=== PATIENT | male | born 1955 | race Caucasian/White ===

== ENCOUNTER 2021-04-14 10:09 | Outpatient (CLI) | payer MEDICARE, OTHER, SELFPAY ==
[2021-04-14 19:14] LABS: Hemoglobin A1C 7.1 % (<5.7)
[2021-04-14 20:26] LABS: Anion Gap 10 mmol/L (8-16); Blood Urea Nitrogen 17 mg/dL (9-20); Calcium 9.5 mg/dL (8.4-10.2); Carbon Dioxide 24 mmol/L (22-30); Chloride 105 mmol/L (98-107); Estimated Glomerular Filt Rate > 60; Glucose 184 mg/dL (65-110); Potassium 4.7 mmol/L (3.4-5.0); Sodium 139 mmol/L (137-145)
[2021-04-14 21:00] LABS: Thyroid Stimulating Hormone 0.333 uIU/mL (0.465-4.680)
== END 2021-04-14 10:10 | disposition home or self-care (01) ==
PROVIDERS: PCP Family Medicine
DX: N40.1 Benign prostatic hyperplasia with lower urinary tract symptoms (principal); E03.9 Hypothyroidism, unspecified; E11.9 Type 2 diabetes mellitus without complications
CPT/HCPCS: 36415; 80048; 83036; 84443

== ENCOUNTER 2021-06-01 11:51 | Outpatient (CLI) | payer MEDICARE, OTHER, SELFPAY | END 2021-06-01 11:52 | disposition home or self-care (01) | PROVIDERS: PCP Family Medicine; Visit Provider Family Medicine | DX: Z79.899 Other long term (current) drug therapy (principal) | CPT/HCPCS: 36415; 84443 ==

== ENCOUNTER 2021-06-14 14:03 | Outpatient (CLI) | payer MEDICARE, OTHER, SELFPAY ==
[2021-06-14 20:16] LABS: Hematocrit 40.2 % (42.0-52.0); Hemoglobin 13.4 g/dL (14.0-18.0); Mean Corpuscular HGB Conc 33.3 g/dl (32-36); Mean Corpuscular Hemoglobin 31.5 pg (26-34); Mean Corpuscular Volume 94.4 fl (80-100); Mean Platelet Volume 11.9 fl (7.4-10.4); Platelet Count Result 187 k/mm3 (150-375); Red Blood Count 4.26 M/mm3 (4.6-6.20); Red Cell Distribution Width 12.8 % (11.5-14.5); White Blood Count 6.5 K/mm3 (4.5-10.0)
[2021-06-14 20:57] LABS: Thyroid Stimulating Hormone Reflex 0.843 uIU/mL (0.465-4.68)
[2021-06-14 21:19] LABS: Vitamin B12 > 1000.0 pg/mL (239-931)
[2021-06-18 13:04] LABS: Vitamin B6 11.4 ng/mL (2.1-21.7)
== END 2021-06-14 14:04 | disposition home or self-care (01) ==
LOC: ANHBWCLAB 14:05
PROVIDERS: PCP Family Medicine; Visit Provider Family Medicine
DX: N20.0 Calculus of kidney (principal); Z79.899 Other long term (current) drug therapy; K14.6 Glossodynia
CPT/HCPCS: 36415; 82607; 84207; 84443; 85027

== ENCOUNTER 2021-09-07 13:09 | Outpatient (CLI) | payer MEDICARE, OTHER, SELFPAY | END 2021-09-07 13:10 | disposition home or self-care (01) | PROVIDERS: PCP Family Medicine; Visit Provider Family Medicine | DX: E07.89 Other specified disorders of thyroid (principal); Z51.81 Encounter for therapeutic drug level monitoring; Z79.899 Other long term (current) drug therapy | CPT/HCPCS: 36415; 84443 ==

== ENCOUNTER 2021-10-13 10:26 | Outpatient (CLI) | payer MEDICARE, OTHER, SELFPAY ==
[2021-10-13 18:35] LABS: Hematocrit 42.9 % (42.0-52.0); Hemoglobin 14.4 g/dL (14.0-18.0); Mean Corpuscular HGB Conc 33.6 g/dl (32-36); Mean Corpuscular Hemoglobin 31.5 pg (26-34); Mean Corpuscular Volume 93.9 fl (80-100); Mean Platelet Volume 11.5 fl (7.4-10.4); Platelet Count Result 214 k/mm3 (150-375); Red Blood Count 4.57 M/mm3 (4.6-6.20); Red Cell Distribution Width 12.8 % (11.5-14.5); White Blood Count 7.9 K/mm3 (4.5-10.0)
[2021-10-13 18:45] LABS: Alanine Aminotransferase 63 U/L (4-50); Albumin Level 4.7 g/dL (3.5-5.1); Alkaline Phosphatase 69 U/L (38-126); Anion Gap 9 mmol/L (8-16); Aspartate Amino Transferase 49 U/L (17-59); Bilirubin,Total 0.7 mg/dL (0.2-1.3); Blood Urea Nitrogen 15 mg/dL (9-20); Calcium 9.6 mg/dL (8.4-10.2); Carbon Dioxide 28 mmol/L (22-30); Chloride 102 mmol/L (98-107); Cholesterol 169 mg/dL (0-200); Estimated Glomerular Filt Rate > 60; Glucose 151 mg/dL (65-110); HDL Direct 34 mg/dL; Potassium 4.5 mmol/L (3.4-5.0); Sodium 139 mmol/L (137-145); Triglycerides 200 mg/dL (<150)
[2021-10-13 18:56] LABS: LDL Cholesterol Direct 110 mg/dL
[2021-10-13 18:59] LABS: Hemoglobin A1C 7.6 % (<5.7)
[2021-10-13 19:31] LABS: Microalbumin Urine Random 42.7 mg/L (0-16.7)
[2021-10-13 19:51] LABS: Creatinine Urine 345.1 mg/dL; MALB Creatinine Ratio 12.4 mg/g (0-30)
== END 2021-10-13 10:27 | disposition home or self-care (01) ==
PROVIDERS: PCP Family Medicine; Visit Provider Family Medicine
DX: E11.9 Type 2 diabetes mellitus without complications (principal)
CPT/HCPCS: 36415; 80053; 80061; 82043; 83036; 84443; 85027

== ENCOUNTER 2021-11-10 10:22 | Outpatient (CLI) | payer MEDICARE, OTHER, SELFPAY ==
[2021-11-10 18:53] LABS: Alanine Aminotransferase 39 U/L (4-50); Albumin Level 4.7 g/dL (3.5-5.1); Alkaline Phosphatase 87 U/L (38-126); Aspartate Amino Transferase 33 U/L (17-59); Bilirubin,Total 0.5 mg/dL (0.2-1.3)
[2021-11-10 19:39] LABS: Hepatitis B Surface Antigen Negative (Negative)
[2021-11-10 19:45] LABS: HAV RESULT Negative (Negative); Hepatitis B Core IgM Result Negative (Negative)
[2021-11-10 19:57] LABS: Hepatitis C Virus Antibody Negative (Negative)
== END 2021-11-10 10:23 | disposition home or self-care (01) ==
PROVIDERS: PCP Family Medicine; Visit Provider Family Medicine
DX: R74.01 Elevation of levels of liver transaminase levels (principal); R74.8 Abnormal levels of other serum enzymes
CPT/HCPCS: 36415; 80074; 80076

== ENCOUNTER 2022-02-13 10:41 | Outpatient (CLI) | payer MEDICARE, OTHER, SELFPAY ==
[2022-02-13 19:10] LABS: Hemoglobin A1C 7.4 % (<5.7)
== END 2022-02-13 10:42 | disposition home or self-care (01) ==
PROVIDERS: PCP Family Medicine; Visit Provider Family Medicine
DX: E79.0 Hyperuricemia without signs of inflammatory arthritis and tophaceous disease (principal)
CPT/HCPCS: 36415; 83036

== ENCOUNTER 2022-06-06 09:17 | Outpatient (CLI) | payer MEDICARE, OTHER, SELFPAY ==
--- NOTE | ~2022-06-06 | XR_ITS ---
EXAMINATION: XR shoulder LT min 2V DATE: 06/06/2022 09:34 INDICATION: Left shoulder pain TECHNIQUE: AP internally and externally rotated, AP oblique externally rotated and transscapular Y vi ews of the left shoulder were obtained. COMPARISON: None FINDINGS: Normal alignment. No fracture.Severe left glenohumeral osteoarthritis with essentially [id number] apposition and early remodeling of the articular surfaces of the glenoid and humeral head. Large asuncion inal osteophytes along the inferomedial aspect of the humeral head. Acromioclavicular joint is normal . Soft tissues are unremarkable. Visualized portion of the lungs are clear. IMPRESSION: Severe left glenohumeral osteoarthritis. Reviewed, dictated and finalized at location A.
[2022-06-06 19:52] LABS: Basophils Absolute Auto 0.1 K/mm3 (0.0-0.1); Basophils Percent Auto 0.8 % (0.2-1.2); Eosinophils Absolute Auto 0.4 K/mm3 (0-0.3); Eosinophils Percent Auto 4.4 % (0-4.4); Hemoglobin 14.2 g/dL (14.0-18.0); Immature Granulocyte Absolute 0.04 K/mm3 (0.00-0.031); Immature Granulocyte Percent A 0.5 % (0-0.5); Lymphocytes Absolute Auto 2.46 K/mm3 (0.9-3.2); Lymphocytes Percent Auto 29.5 % (18.3-44.2); Mean Corpuscular HGB Conc 32.3 g/dl (32-36); Mean Corpuscular Hemoglobin 31.1 pg (26-34); Mean Corpuscular Volume 96.3 fl (80-100); Mean Platelet Volume 11.4 fl (7.4-10.4); Monocytes Absolute Auto 0.7 K/mm3 (0.1-0.6); Neutrophils Absolute Auto 4.7 K/mm3 (1.3-6.7); Neutrophils Percent Auto 56.8 % (45.5-73.1); Platelet Count Result 211 k/mm3 (150-375); Red Blood Count 4.57 M/mm3 (4.6-6.20); Red Cell Distribution Width 13.4 % (11.5-14.5); White Blood Count 8.3 K/mm3 (4.5-10.0)
[2022-06-06 20:22] LABS: Alanine Aminotransferase 64 U/L (6-50); Albumin Level 4.7 g/dL (3.5-5.1); Alkaline Phosphatase 81 U/L (38-126); Anion Gap 14 mmol/L (8-16); Aspartate Amino Transferase 69 U/L (17-59); Bilirubin,Total 0.6 mg/dL (0.2-1.3); Blood Urea Nitrogen 20 mg/dL (9-20); Calcium 9.7 mg/dL (8.4-10.2); Carbon Dioxide 26 mmol/L (22-30); Chloride 99 mmol/L (98-107); Cholesterol 184 mg/dL (0-200); Estimated Glomerular Filt Rate > 60; Glucose 206 mg/dL (65-110); HDL Direct 32 mg/dL; Potassium 4.5 mmol/L (3.4-5.0); Sodium 139 mmol/L (137-145); Triglycerides 287 mg/dL (<150)
[2022-06-06 20:41] LABS: LDL Cholesterol Direct 102 mg/dL
[2022-06-06 21:16] LABS: Creatinine Urine 166.9 mg/dL
[2022-06-06 21:19] LABS: MALB Creatinine Ratio 17.6 mg/g (0-30); Microalbumin Urine Random 29.4 mg/L (0-16.7)
== END 2022-06-06 09:18 | disposition home or self-care (01) ==
PROVIDERS: PCP Family Medicine; Visit Provider Family Medicine
DX: M19.012 Primary osteoarthritis, left shoulder (principal); Z79.899 Other long term (current) drug therapy; E11.9 Type 2 diabetes mellitus without complications; N20.0 Calculus of kidney
CPT/HCPCS: 36415; 73030; 80053; 80061; 82043; 83036; 84443; 85025

== ENCOUNTER 2022-09-06 11:16 | Outpatient (CLI) | payer MEDICARE, OTHER, SELFPAY ==
[2022-09-07 12:02] LABS: Hemoglobin A1C 7.5 % (<5.7)
== END 2022-09-06 11:17 | disposition home or self-care (01) ==
PROVIDERS: PCP Family Medicine; Visit Provider Family Medicine
DX: E79.0 Hyperuricemia without signs of inflammatory arthritis and tophaceous disease (principal); Z79.899 Other long term (current) drug therapy
CPT/HCPCS: 36415; 83036; 84443

== ENCOUNTER 2022-12-18 10:55 | Outpatient (CLI) | payer MEDICARE, OTHER, SELFPAY ==
[2022-12-18 17:54] LABS: Basophils Percent Auto 0.6 % (0.2-1.2); Eosinophils Absolute Auto 0.3 K/mm3 (0-0.3); Eosinophils Percent Auto 4.1 % (0-4.4); Hemoglobin 13.1 g/dL (14.0-18.0); Immature Granulocyte Absolute 0.01 K/mm3 (0.00-0.031); Immature Granulocyte Percent A 0.1 % (0-0.5); Lymphocytes Absolute Auto 2.27 K/mm3 (0.9-3.2); Lymphocytes Percent Auto 31.8 % (18.3-44.2); Mean Corpuscular Hemoglobin 30.3 pg (26-34); Mean Corpuscular Volume 94.7 fl (80-100); Mean Platelet Volume 11.5 fl (7.4-10.4); Monocytes Absolute Auto 0.5 K/mm3 (0.1-0.6); Monocytes Percent Auto 7.4 % (2.6-8.5); Platelet Count Result 199 k/mm3 (150-375); Red Blood Count 4.33 M/mm3 (4.6-6.20); Red Cell Distribution Width 13.9 % (11.5-14.5); White Blood Count 7.1 K/mm3 (4.5-10.0)
[2022-12-18 18:37] LABS: Microalbumin Urine Random 10.2 mg/L (0-16.7)
[2022-12-18 18:39] LABS: Alanine Aminotransferase 93 U/L (6-50); Albumin Level 4.7 g/dL (3.5-5.1); Alkaline Phosphatase 79 U/L (38-126); Anion Gap 8 mmol/L (8-16); Aspartate Amino Transferase 84 U/L (17-59); Bilirubin,Total 0.8 mg/dL (0.2-1.3); Blood Urea Nitrogen 17 mg/dL (9-20); Calcium 9.3 mg/dL (8.4-10.2); Carbon Dioxide 31 mmol/L (22-30); Chloride 100 mmol/L (98-107); Estimated Glomerular Filt Rate > 60; Glucose 163 mg/dL (65-110); Potassium 4.7 mmol/L (3.4-5.0); Sodium 139 mmol/L (137-145)
[2022-12-18 18:47] LABS: Creatinine Urine 165.1 mg/dL; MALB Creatinine Ratio 6.2 mg/g (0-30)
== END 2022-12-18 10:56 | disposition home or self-care (01) ==
PROVIDERS: PCP Family Medicine; Visit Provider Family Medicine
DX: E11.9 Type 2 diabetes mellitus without complications (principal); K58.9 Irritable bowel syndrome, unspecified
CPT/HCPCS: 36415; 80053; 82043; 83036; 84443; 85025; 86003

== ENCOUNTER 2023-06-11 10:06 | Outpatient (CLI) | payer MEDICARE, OTHER, SELFPAY ==
[2023-06-11 19:21] LABS: Basophils Percent Auto 0.6 % (0.2-1.2); Eosinophils Absolute Auto 0.2 K/mm3 (0-0.3); Eosinophils Percent Auto 2.9 % (0-4.4); Hematocrit 42.3 % (42.0-52.0); Hemoglobin 13.4 g/dL (14.0-18.0); Immature Granulocyte Absolute 0.03 K/mm3 (0.00-0.031); Immature Granulocyte Percent A 0.5 % (0-0.5); Lymphocytes Absolute Auto 2.02 K/mm3 (0.9-3.2); Lymphocytes Percent Auto 32.5 % (18.3-44.2); Mean Corpuscular HGB Conc 31.7 g/dl (32-36); Mean Corpuscular Hemoglobin 30.5 pg (26-34); Mean Corpuscular Volume 96.1 fl (80-100); Mean Platelet Volume 11.9 fl (7.4-10.4); Monocytes Absolute Auto 0.5 K/mm3 (0.1-0.6); Monocytes Percent Auto 8.4 % (2.6-8.5); Neutrophils Absolute Auto 3.4 K/mm3 (1.3-6.7); Neutrophils Percent Auto 55.1 % (45.5-73.1); Platelet Count Result 192 k/mm3 (150-375); Red Cell Distribution Width 13.4 % (11.5-14.5); White Blood Count 6.2 K/mm3 (4.5-10.0)
[2023-06-11 19:24] LABS: Alanine Aminotransferase 100 U/L (6-50); Albumin Level 4.7 g/dL (3.5-5.1); Alkaline Phosphatase 91 U/L (38-126); Anion Gap 9 mmol/L (8-16); Aspartate Amino Transferase 90 U/L (17-59); Bilirubin,Total 0.7 mg/dL (0.2-1.3); Blood Urea Nitrogen 20 mg/dL (9-20); Calcium 9.8 mg/dL (8.4-10.2); Carbon Dioxide 29 mmol/L (22-30); Chloride 96 mmol/L (98-107); Cholesterol 200 mg/dL (0-200); Estimated Glomerular Filt Rate > 60; Glucose 345 mg/dL (65-110); HDL Direct 35 mg/dL; Sodium 134 mmol/L (137-145); Triglycerides 264 mg/dL (<150)
[2023-06-11 19:35] LABS: LDL Cholesterol Direct 118 mg/dL
[2023-06-11 19:54] LABS: Prostate Specific Antigen 0.4 ng/mL (< OR = 4.0)
[2023-06-11 20:17] LABS: Creatinine Urine 102.7 mg/dL
[2023-06-11 20:18] LABS: MALB Creatinine Ratio 10.5 mg/g (0-30); Microalbumin Urine Random 10.8 mg/L (0-16.7)
[2023-06-11 23:46] LABS: Hemoglobin A1C 8.4 % (<5.7)
== END 2023-06-11 10:07 | disposition home or self-care (01) ==
PROVIDERS: PCP Family Medicine; Visit Provider Family Medicine
DX: E11.9 Type 2 diabetes mellitus without complications (principal); Z12.5 Encounter for screening for malignant neoplasm of prostate
CPT/HCPCS: 36415; 80053; 80061; 82043; 83036; 84153; 84443; 85025; G0103

== ENCOUNTER 2023-10-22 11:29 | Outpatient (CLI) | payer MEDICARE, OTHER, SELFPAY ==
[2023-10-22 19:18] LABS: Hematocrit 42.3 % (42.0-52.0); Mean Corpuscular HGB Conc 30.7 g/dl (32-36); Mean Corpuscular Hemoglobin 30.2 pg (26-34); Mean Corpuscular Volume 98.1 fl (80-100); Mean Platelet Volume 12.1 fl (7.4-10.4); Platelet Count Result 176 k/mm3 (150-375); Red Blood Count 4.31 M/mm3 (4.6-6.20); Red Cell Distribution Width 14.1 % (11.5-14.5); White Blood Count 7.5 K/mm3 (4.5-10.0)
[2023-10-22 20:27] LABS: Alanine Aminotransferase 79 U/L (6-50); Albumin Level 4.5 g/dL (3.5-5.1); Alkaline Phosphatase 112 U/L (38-126); Anion Gap 8 mmol/L (8-16); Aspartate Amino Transferase 69 U/L (17-59); Bilirubin,Total 0.4 mg/dL (0.2-1.3); Blood Urea Nitrogen 15 mg/dL (9-20); Calcium 9.9 mg/dL (8.4-10.2); Carbon Dioxide 25 mmol/L (22-30); Chloride 103 mmol/L (98-107); Estimated Glomerular Filt Rate > 60; Glucose 299 mg/dL (65-110); Potassium 4.5 mmol/L (3.4-5.0); Sodium 136 mmol/L (137-145)
[2023-10-22 20:38] LABS: Creatinine Urine 58.2 mg/dL
[2023-10-22 20:46] LABS: MALB Creatinine Ratio 14.6 mg/g (0-30); Microalbumin Urine Random 8.5 mg/L (0-16.7)
[2023-10-22 21:34] LABS: Hemoglobin A1C 9.1 % (<5.7)
== END 2023-10-22 11:30 | disposition home or self-care (01) ==
LOC: ANHBWCLAB 11:31
PROVIDERS: PCP Family Medicine; Visit Provider Family Medicine
DX: E11.9 Type 2 diabetes mellitus without complications (principal)
CPT/HCPCS: 36415; 80053; 82043; 83036; 84443; 85027

== ENCOUNTER 2024-02-04 10:09 | Outpatient (CLI) | payer MEDICARE, OTHER, SELFPAY ==
[2024-02-04 19:34] LABS: Microalbumin Urine Random 32.8 mg/L (0-16.7)
[2024-02-04 19:38] LABS: Creatinine Urine 197.7 mg/dL; MALB Creatinine Ratio 16.6 mg/g (0-30)
[2024-02-05 01:27] LABS: Hemoglobin A1C 8.7 % (<5.7)
== END 2024-02-04 10:10 | disposition home or self-care (01) ==
PROVIDERS: PCP Family Medicine; Visit Provider Family Medicine
DX: E11.9 Type 2 diabetes mellitus without complications (principal)
CPT/HCPCS: 36415; 82043; 83036

== ENCOUNTER 2024-06-25 10:28 | Outpatient (CLI) | payer MEDICARE, OTHER, SELFPAY ==
--- NOTE | ~2024-06-25 | XR_ITS ---
Left Shoulder Technique: AP and scapular Y views were obtained. Clinical History: Pain Findings: No fracture or dislocation is seen. Osseous alignment is anatomic. There is advanced glenoh umeral joint osteophytes, with joint space narrowing and large inferior medial humeral head osteophyt e. There is minimal AC joint degenerative change.. Soft tissues are unremarkable. Impression: Severe glenohumeral joint osteoarthritis. Reviewed, dictated and finalized at location M. [employer] Impression: Severe glenohumeral joint osteoarthritis.
[2024-06-25 20:53] LABS: Hematocrit 42.9 % (42.0-52.0); Hemoglobin 13.6 g/dL (14.0-18.0); Mean Corpuscular HGB Conc 31.7 g/dl (32-36); Mean Corpuscular Hemoglobin 30.1 pg (26-34); Mean Corpuscular Volume 94.9 fl (80-100); Mean Platelet Volume 11.7 fl (7.4-10.4); Platelet Count Result 173 k/mm3 (150-375); Red Blood Count 4.52 M/mm3 (4.6-6.20); Red Cell Distribution Width 13.2 % (11.5-14.5); White Blood Count 7.4 K/mm3 (4.5-10.0)
[2024-06-25 21:08] LABS: Alanine Aminotransferase 97 U/L (6-50); Albumin Level 4.6 g/dL (3.5-5.1); Alkaline Phosphatase 75 U/L (38-126); Anion Gap 12 mmol/L (4-12); Aspartate Amino Transferase 88 U/L (17-59); Bilirubin,Total 0.8 mg/dL (0.2-1.3); Blood Urea Nitrogen 19 mg/dL (9-20); Calcium 9.4 mg/dL (8.4-10.2); Carbon Dioxide 28 mmol/L (22-30); Chloride 99 mmol/L (98-107); Cholesterol 189 mg/dL (0-200); Estimated Glomerular Filt Rate > 60; Glucose 222 mg/dL (65-110); HDL Direct 35 mg/dL; Potassium 4.6 mmol/L (3.4-5.0); Sodium 139 mmol/L (137-145); Triglycerides 260 mg/dL (<150)
[2024-06-25 21:21] LABS: LDL Cholesterol Direct 100 mg/dL
[2024-06-25 21:38] LABS: Prostate Specific Antigen 0.5 ng/mL (< OR = 4.0)
[2024-06-25 21:49] LABS: Microalbumin Urine Random 34.6 mg/L (0-16.7)
[2024-06-25 21:52] LABS: Creatinine Urine 166.4 mg/dL; MALB Creatinine Ratio 20.8 mg/g (0-30)
[2024-06-25 21:56] LABS: Hemoglobin A1C 10.7 % (<5.7)
== END 2024-06-25 10:29 | disposition home or self-care (01) ==
PROVIDERS: PCP Family Medicine; Visit Provider Family Medicine
DX: M19.012 Primary osteoarthritis, left shoulder (principal); H90.3 Sensorineural hearing loss, bilateral; Z79.899 Other long term (current) drug therapy; N20.0 Calculus of kidney; E11.9 Type 2 diabetes mellitus without complications; E03.9 Hypothyroidism, unspecified; E78.5 Hyperlipidemia, unspecified; F41.9 Anxiety disorder, unspecified; G47.00 Insomnia, unspecified; I63.9 Cerebral infarction, unspecified; R74.8 Abnormal levels of other serum enzymes; Z12.5 Encounter for screening for malignant neoplasm of prostate
CPT/HCPCS: 36415; 73030; 80053; 80061; 82043; 83036; 84153; 84443; 85027; 92557; 92567; G0103

== ENCOUNTER 2024-09-30 01:03 | Day surgery (SDC) | payer MEDICARE, OTHER, SELFPAY ==
[2024-09-15 14:43] VITALS: BMI 32.4
--- OUTSIDE RECORDS SUMMARY | 2024-09-30 01:06 | XMS_ITS | Patient Health Summary ---
Author Organization [facility] Address [address] [place] [address] Care Team Providers Care Child Care Sitter Name Role Phone Jacoby Yanna Wayne HUMAN RESOURCES FILE CLERK-[facility] Primary Care Provider Note from [facility],non-owned Affiliates and Associated Physician Practices is amultiple site organization consisting of ambulatory clinics and hospital sitesin [place], [place], [place] and [place]. This disclosure is being madepursuant to the Care Everywhere program and may not contain all information available regarding this patient. Last updated 18.[facility] Allergies * [place] Blue Fcf, Fd&C Blue #1(Itching) -Low Criticality * Codeine(Nausea) -Low Criticality * Niacin(Anaphylaxis) -High Criticality Active Problems Problem Noted Date Diagnosed Date Abdominal pain 03/28/2013 Shortness of breath 03/14/2013 Social History Tobacco Use Types Packs/Day Years Used Date Smoking Tobacco: Former Cigarettes Q uit: 01/28/1973 Smokeless Tobacco: Never Alcohol Use Standard Drinks/Week Comments Yes 0 (1 standard drink = 0.6 oz pur e alcohol) Sex and Gender Information Value Date Recorded Sex Assigned at Not on file Gender Identity Not on file Sexual Orientation Not on file Last Filed Vital Signs Vital Sign Reading Time Taken Comments Blood Pressure 126/68 04/16/2013 11:16 AM CDT Pulse 84 04/16/2013 11:16 AM CDT Temperature 37.1 C (98.7 F) 04/08/2013 1:42 PM CDT Respiratory Rate 20 03/28/2013 9:01 AM CDT Oxygen Saturation 92% 03/28/2013 8:59 AM CDT Inhaled Oxygen Concentration - - Weight 86.3 kg (190 lb 3.2 oz) 04/16/2013 11:16 AM CDT Height 165.1 cm (5' 5 ) 04/16/2013 11:16 AM CDT Body Mass Index 31.65 04/16/2013 11:16 AM CDT Procedures * CT CHEST ABDOMEN PELVIS WO CONT(Performed 04/16/2013) * XR CHEST 2VW(Performed 04/08/2013) * XR CHEST 1VW PORTABLE(Performed 03/28/2013) * GLUCOSE ACCUCHECK(Performed 03/28/2013) * XR CHEST 1VW PORTABLE(Performed 03/28/2013) * GLUCOSE ACCUCHECK(Performed 03/28/2013) * CBC W AUTO DIFFERENTIAL(Performed 03/28/2013) * BASIC METABOLIC PANEL (CALCIUM TOTAL)(Performed 03/28/2013) * GLUCOSE ACCUCHECK(Performed 03/27/2013) * EKG 12-LEAD(Performed 03/27/2013) * GLUCOSE ACCUCHECK(Performed 03/27/2013) * XR ABDOMEN KUB PORTABLE(Performed 03/27/2013) * GLUCOSE ACCUCHECK(Performed 03/27/2013) * GLUCOSE ACCUCHECK(Performed 03/27/2013) * CBC W AUTO DIFFERENTIAL(Performed 03/27/2013) * BASIC METABOLIC PANEL (CALCIUM TOTAL)(Performed 03/27/2013) * XR CHEST 1VW PORTABLE(Performed 03/27/2013) * VANCOMYCIN LEVEL TROUGH(Performed 03/26/2013) * GLUCOSE ACCUCHECK(Performed 03/26/2013) * XR CHEST 1VW PORTABLE(Performed 03/26/2013) * FL HUANG SURGERY(Performed 03/26/2013) * URINALYSIS W/MICROSCOPIC NO CULTURE(Performed 03/26/2013) * CULTURE URINE(Performed 03/26/2013) * GLUCOSE ACCUCHECK(Performed 03/26/2013) * CBC W AUTO DIFFERENTIAL(Performed 03/26/2013) * PHOSPHORUS BLOOD(Performed 03/26/2013) * MAGNESIUM BLOOD(Performed 03/26/2013) * BASIC METABOLIC PANEL (CALCIUM TOTAL)(Performed 03/26/2013) * GLUCOSE ACCUCHECK(Performed 03/26/2013) * XR CHEST 1VW PORTABLE(Performed 03/26/2013) * GLUCOSE ACCUCHECK(Performed 03/25/2013) * GLUCOSE ACCUCHECK(Performed 03/25/2013) * CT CHEST WO CONTRAST(Performed 03/25/2013) * GLUCOSE ACCUCHECK(Performed 03/25/2013) * VANCOMYCIN LEVEL TROUGH(Performed 03/25/2013) * GLUCOSE ACCUCHECK(Performed 03/25/2013) * CBC W AUTO DIFFERENTIAL(Performed 03/25/2013) * BASIC METABOLIC PANEL (CALCIUM TOTAL)(Performed 03/25/2013) * XR CHEST 1VW PORTABLE(Performed 03/25/2013) * GLUCOSE ACCUCHECK(Performed 03/24/2013) * GLUCOSE ACCUCHECK(Performed 03/24/2013) * GLUCOSE ACCUCHECK(Performed 03/24/2013) * GLUCOSE ACCUCHECK(Performed 03/24/2013) * VANCOMYCIN LEVEL TROUGH(Performed 03/24/2013) * CBC W AUTO DIFFERENTIAL(Performed 03/24/2013) * BASIC METABOLIC PANEL (CALCIUM TOTAL)(Performed 03/24/2013) * XR CHEST 1VW PORTABLE(Performed 03/24/2013) * GLUCOSE ACCUCHECK(Performed 03/23/2013) * GLUCOSE ACCUCHECK(Performed 03/23/2013) * GLUCOSE ACCUCHECK(Performed 03/23/2013) * GLUCOSE ACCUCHECK(Performed 03/23/2013) * XR CHEST 1VW PORTABLE(Performed 03/23/2013) * CBC W AUTO DIFFERENTIAL(Performed 03/23/2013) * BASIC METABOLIC PANEL (CALCIUM TOTAL)(Performed 03/23/2013) * GLUCOSE ACCUCHECK(Performed 03/22/2013) * GLUCOSE ACCUCHECK(Performed 03/22/2013) * GLUCOSE ACCUCHECK(Performed 03/22/2013) * VANCOMYCIN LEVEL TROUGH(Performed 03/22/2013) * GLUCOSE ACCUCHECK(Performed 03/22/2013) * GLUCOSE ACCUCHECK(Performed 03/22/2013) * GLUCOSE ACCUCHECK(Performed 03/22/2013) * GLUCOSE ACCUCHECK(Performed 03/22/2013) * GLUCOSE ACCUCHECK(Performed 03/22/2013) * GLUCOSE ACCUCHECK(Performed 03/22/2013) * GLUCOSE ACCUCHECK(Performed 03/22/2013) * GLUCOSE ACCUCHECK(Performed 03/22/2013) * XR CHEST 1VW PORTABLE(Performed 03/22/2013) * GLUCOSE ACCUCHECK(Performed 03/22/2013) * BASIC METABOLIC PANEL (CALCIUM TOTAL)(Performed 03/22/2013) * CBC W AUTO DIFFERENTIAL(Performed 03/22/2013) * GLUCOSE ACCUCHECK(Performed 03/21/2013) * GLUCOSE ACCUCHECK(Performed 03/21/2013) * GLUCOSE ACCUCHECK(Performed 03/21/2013) * XR CHEST 1VW PORTABLE(Performed 03/21/2013) * GLUCOSE ACCUCHECK(Performed 03/21/2013) * XR CHEST 1VW PORTABLE(Performed 03/21/2013) * GLUCOSE ACCUCHECK(Performed 03/21/2013) * CBC W AUTO DIFFERENTIAL(Performed 03/21/2013) * BASIC METABOLIC PANEL (CALCIUM TOTAL)(Performed 03/21/2013) * GLUCOSE ACCUCHECK(Performed 03/20/2013) * GLUCOSE ACCUCHECK(Performed 03/20/2013) * GLUCOSE ACCUCHECK(Performed 03/20/2013) * CT CHEST ABDOMEN WO CONTRAST(Performed 03/20/2013) * XR CHEST 1VW PORTABLE(Performed 03/20/2013) * PATHOLOGY SMEAR BODY FLUID(Performed 03/20/2013) * CELL COUNT W DIFFERENTIAL FLUID(Performed 03/20/2013) * GLUCOSE BODY FLUID(Performed 03/20/2013) * AMYLASE FLUID(Performed 03/20/2013) * CHOLESTEROL FLUID(Performed 03/20/2013) * PROTEIN FLUID(Performed 03/20/2013) * LDH BODY FLUID(Performed 03/20/2013) * PH FLUID(Performed 03/20/2013) * CREATININE FLUID(Performed 03/20/2013) * CULTURE AFB(Performed 03/20/2013) * CULTURE AEROBIC(Performed 03/20/2013) * AFB SMEAR(Performed 03/20/2013) * GRAM STAIN SMEAR(Performed 03/20/2013) * BASIC METABOLIC PANEL (CALCIUM TOTAL)(Performed 03/20/2013) * PHOSPHORUS BLOOD(Performed 03/20/2013) * MAGNESIUM BLOOD(Performed 03/20/2013) * PT-INR [facility](Performed 03/20/2013) * CBC W/O DIFFERENTIAL(Performed 03/20/2013) * PHOSPHORUS BLOOD(Performed 03/19/2013) * MAGNESIUM BLOOD(Performed 03/19/2013) * BASIC METABOLIC PANEL (CALCIUM TOTAL)(Performed 03/19/2013) * CBC W AUTO DIFFERENTIAL(Performed 03/19/2013) * XR CHEST 1VW PORTABLE(Performed 03/19/2013) * GLUCOSE ACCUCHECK(Performed 03/14/2013) * NM LUNG VENT AND PERFUSION(Performed 03/14/2013) * PTT [facility](Performed 03/14/2013) * CK + CKMB PANEL(Performed 03/14/2013) * TROPONIN I(Performed 03/14/2013) * GLUCOSE ACCUCHECK(Performed 03/14/2013) * VAS BILATERAL VENOUS DUPLEX LE(Performed 03/14/2013) * PTT [facility](Performed 03/14/2013) * GLUCOSE ACCUCHECK(Performed 03/14/2013) * CBC W AUTO DIFFERENTIAL(Performed 03/14/2013) * CK + CKMB PANEL(Performed 03/14/2013) * BASIC METABOLIC PANEL (CALCIUM TOTAL)(Performed 03/14/2013) * PHOSPHORUS BLOOD(Performed 03/14/2013) * MAGNESIUM BLOOD(Performed 03/14/2013) * TROPONIN I(Performed 03/14/2013) * URINALYSIS REFLEX TO MICROSCOPIC NO CULTURE(Performed 03/14/2013) * URINALYSIS REFLEX TO MICROSCOPIC NO CULTURE(Performed 03/14/2013) * IR PERC NEPHROSTOMY(Performed 03/11/2013) * IR PERC NEPHROSTOMY(Performed 03/11/2013) * IR URETERAL STENT PLACE(Performed 03/11/2013) * IR URETERAL STENT PLACE(Performed 03/11/2013) * PT-INR [facility](Performed 03/11/2013) * PTT [facility](Performed 03/11/2013) * BASIC METABOLIC PANEL (CALCIUM TOTAL)(Performed 03/11/2013) * CBC W AUTO DIFFERENTIAL(Performed 03/11/2013) * XR ABDOMEN KUB(Performed 02/25/2013) * URINALYSIS - POINT OF CARE (AMB) [facility](Performed 02/25/2013) * EKG 12-LEAD(Performed 02/12/2013) * GLUCOSE ACCUCHECK(Performed 02/04/2013) * XR ABDOMEN KUB PORTABLE(Performed 02/04/2013) * GLUCOSE ACCUCHECK(Performed 02/04/2013) * HEMOGLOBIN A1C(Performed 02/04/2013) * COMPREHENSIVE METABOLIC PANEL(Performed 02/04/2013) * CBC W AUTO DIFFERENTIAL(Performed 02/04/2013) * HEMOGLOBIN A1C(Performed 01/28/2013) * COMPREHENSIVE METABOLIC PANEL(Performed 01/28/2013) * CBC W AUTO DIFFERENTIAL(Performed 01/28/2013) * XR ABDOMEN KUB(Performed 04/17/2012) * URINALYSIS - POINT OF CARE (AMB) [facility](Performed 08/20/1998) * URINALYSIS - POINT OF CARE (AMB) [facility](Performed 08/20/1998) * URINALYSIS - POINT OF CARE (AMB) [facility](Performed 08/20/1998) Results * CT CHEST ABDOMEN PELVIS WO CONT (04/16/2013 12:39 PM CDT) Anatomical Region Laterality Modality Chest, Abdomen, Pelvis Other Impressions 04/16/2013 3:56 PM CDT Impression: 1. No evidence of pulmonary consolidation, pleural effusion or empyema. Atelectasis is scattered throughout the right lung, but largely unchanged. 2. Removal of right chest tube, no pneumothorax is seen. 3. Persistently elevated right hemidiaphragm, possibly due to right lung atelectasis or paralysis of the right hemidiaphragm. 4. Nephrolithiasis. Nephrostomy tubes in the right kidney have been removed without hydronephrosis. 5. Diverticulosis. This report was electronically signed by SESAR BOO M.D. on 04/16/2013 3:56 PM . Narrative 04/16/2013 3:56 PM CDT Exam: CT CHEST ABDOMEN PELVIS WO IV CONTRAST Date: 04/16/2013 12:39 PM History: empyema Technique: Multislice helical without intravenous contrast using the standard protocol of the chest, abdomen and pelvis.. Findings: Comparison is made to prior CT of the chest dated 03/25/2013, and prior CT of the chest and abdomen dated 12/25/2012. Chest x-ray performed 04/08/2013 was reviewed. Chest: Since the prior CT examination, the right chest tube has been removed. Atelectasis and scarring is again seen within the right upper and right lower lobe. Pleural thickening is again noted as well. No new pulmonary nodule or consolidation is present. No pneumothorax is seen. The left lung remains clear. Bronchiectasis is again seen within the right lower lobe. Calcified lymph nodes are again seen within the right hilum and mediastinum. No significant adenopathy is appreciated. The heart size remains normal. No pericardial effusion is seen. Atherosclerotic calcification is mild within the thoracic aorta and left anterior descending coronary artery. Soft tissue infiltration is noted in the right chest wall, in part related to the prior chest tube. Abdomen and pelvis: The right hemidiaphragm remains elevated. Within the limits of a noncontrast examination, the liver, spleen, pancreas and adrenal glands remain normal. The right nephrostomy tube has been removed. Calcifications in the midportion of the right kidney are unchanged. The 1 cm lower pole right renal cyst is also unchanged. No hydronephrosis is seen within the right kidney. No ureteral or bladder calculi are seen. A single calcification remains within the left kidney measuring 5 mm without hydronephrosis. The bladder, prostate, and seminal vesicles are normal. Diverticulosis is seen within the colon without evidence of diverticulitis. The small bowel is normal in appearance. The appendix is unremarkable. Atherosclerotic calcification is mild within a nondilated abdominal aorta and its branches. Nonspecific subcentimeter celiac axis, portacaval, mesenteric and retroperitoneal lymph nodes are unchanged. No free fluid or free air is seen within the abdomen or pelvis. Thoracolumbar scoliosis is again seen. Procedure Note Lana Boo MD - 11/18/2017 Exam: CT CHEST ABDOMEN PELVIS WO IV CONTRAST Date: 04/16/2013 12:39 PM History: empyema Technique: Multislice helical without intravenous contrast using thestandard protocol of the chest, abdomen and pelvis.. Findings: Comparison is made to prior CT of the chest dated 03/25/2013, andprior CT of the chest and abdomen dated 12/25/2012. Chest x-ray performed04/08/2013 was reviewed. Chest: Since the prior CT examination, the right chest tube has beenremoved. Atelectasis and scarring is again seen within the right upper andright lower lobe. Pleural thickening is again noted as well. No newpulmonary nodule or consolidation is present. No pneumothorax is seen. The left lung remains clear.Bronchiectasis is again seen within the right lower lobe. Calcified lymph nodes are again seen within the right hilum andmediastinum. No significant adenopathy is appreciated. The heart sizeremains normal. No pericardial effusion is seen. Atheroscleroticcalcification is mild within the thoracic aorta and left anterior descending coronary artery. Soft tissue infiltration isnoted in the right chest wall, in part related to the prior chest tube. Abdomen and pelvis: The right hemidiaphragm remains elevated. Within thelimits of a noncontrast examination, the liver, spleen, pancreas andadrenal glands remain normal. The right nephrostomy tube has been removed. Calcifications in themidportion of the right kidney are unchanged. The 1 cm lower pole rightrenal cyst is also unchanged. No hydronephrosis is seen within the rightkidney. No ureteral or bladder calculi are seen. A single calcification remains within the left kidney measuring 5mm without hydronephrosis. The bladder, prostate, and seminal vesicles are normal. Diverticulosis isseen within the colon without evidence of diverticulitis. The small bowelis normal in appearance. The appendix is unremarkable. Atheroscleroticcalcification is mild within a nondilated abdominal aorta and its branches. Nonspecific subcentimeterceliac axis, portacaval, mesenteric and retroperitoneal lymph nodes areunchanged. No free fluid or free air is seen within the abdomen or pelvis.Thoracolumbar scoliosis is again seen. IMPRESSION Impression: 1. No evidence of pulmonary consolidation, pleural effusion or empyema.Atelectasis is scattered throughout the right lung, but largelyunchanged. 2. Removal of right chest tube, no pneumothorax is seen. 3. Persistently elevated right hemidiaphragm, possibly due to right lungatelectasis or paralysis of the right hemidiaphragm. 4. Nephrolithiasis. Nephrostomy tubes in the right kidney have beenremoved without hydronephrosis. 5. Diverticulosis. This report was electronically signed by SESAR BOO M.D. on04/16/2013 3:56 PM . Historical Provider CT ORDERABLES * XR CHEST 2VW (04/08/2013 2:42 PM CDT) Anatomical Region Laterality Modality Chest Other Impressions 04/09/2013 12:27 PM CDT Impression: Large right basal opacity as described above, unchanged from 03/28/2013. Resolution of small left pleural effusion and atelectasis. Report dictated by Garth Euceda M.D., MPH (resident). This report was approved by Garth Euceda M.D. on 04/09/2013 9:46 AM . I, Dr. Marcus King M.D. have personally reviewed and interpreted this examination/study. This report was electronically signed by Marcus King M.D. on 04/09/2013 12:27 PM . Narrative 04/09/2013 12:27 PM CDT Exam: XR CHEST PA AND LATERAL Exam Date: 04/08/2013 2:42 PM History: empyema Comparison: Chest x-ray from 03/28/2013 at 11:43 AM. Findings: The previously visualized chest tube is no longer present. The large right basal opacity which represents a combination of elevated right hemidiaphragm, atelectasis and perhaps a small amount of pleural fluid is unchanged from 03/28/2013. Previously visualized left basilar atelectasis and small left pleural effusion have resolved. The left lung is free of focal consolidation. There is no pneumothorax. The cardiomediastinal silhouette is unchanged. Procedure Note Marcus King MD - 11/18/2017 Exam: XR CHEST PA AND LATERAL Exam Date: 04/08/2013 2:42 PM History: empyema Comparison: Chest x-ray from 03/28/2013 at 11:43 AM. Findings: The previously visualized chest tube is no longer present. The large right basal opacity which represents a combination of elevatedright hemidiaphragm, atelectasis and perhaps a small amount of pleuralfluid is unchanged from 03/28/2013. Previously visualized left basilaratelectasis and small left pleural effusion have resolved. The left lung is free of focal consolidation.There is no pneumothorax. The cardiomediastinal silhouette is unchanged. IMPRESSION Impression: Large right basal opacity as described above, unchanged from 03/28/2013. Resolution of small left pleural effusion and atelectasis. Report dictated by Garth Euceda M.D., MPH (resident). This report was approved by Garth Euceda M.D. on 04/09/20139:46 AM . IDr. Marcus M.D. have personally reviewed and interpreted thisexamination/study. This report was electronically signed by Marcus King M.D. on 04/09/201312:27 PM . Historical Provider MD GNOC DURAN G ORDERABLES * XR CHEST 1VW PORTABLE (03/28/2013 11:43 AM CDT) Only the most recent of13 resultswithin the time period is included. Anatomical Region Laterality Modality Chest Other Impressions 03/28/2013 5:34 PM CDT Impression: No significant interval change. No pneumothorax. Report dictated by Garth Euceda M.D., MPH (resident). This report was approved by Garth Euceda M.D. on 03/28/2013 4:[address] Ngozi Gomez M.D. have personally reviewed and interpreted this examination/study. This report was electronically signed by Ngozi CHAVEZ M.D. on 03/28/2013 5:34 PM . Narrative 03/28/2013 5:34 PM CDT Exam: PX CHEST 1 VW Exam Date: 03/28/2013 11:43 AM History: Cut chest tube, open to air Comparison: Chest x-ray from 03/28/2013 at 6:06 AM. Findings: Unchanged appearance of the visualized portion of the right chest tube. A right nephroureteral stent is partially visualized. A small right pleural effusion and associated atelectasis is unchanged. Mild left basilar atelectasis and a small left pleural effusion persists. There is no pneumothorax. Persistent elevation of the right hemidiaphragm. The cardiomediastinal silhouette is unchanged. Procedure Note Geena Chavez MD - 11/18/2017 Exam: PX CHEST 1 VW Exam Date: 03/28/2013 11:43 AM History: Cut chest tube, open to air Comparison: Chest x-ray from 03/28/2013 at 6:06 AM. Findings: Unchanged appearance of the visualized portion of the right chest tube. Aright nephroureteral stent is partially visualized. A small right pleural effusion and associated atelectasis is unchanged.Mild left basilar atelectasis and a small left pleural effusion persists.There is no pneumothorax. Persistent elevation of the right hemidiaphragm.The cardiomediastinal silhouette is unchanged. IMPRESSION Impression: No significant interval change. No pneumothorax. Report dictated by Garth Euceda M.D., MPH (resident). This report was approved by Garth Euceda M.D. on 03/28/20134:43 PM . I, Dr. Ngozi CHAVEZ M.D. have personally reviewed and interpreted thisexamination/study. This report was electronically signed by Ngozi CHAVEZ M.D. on03/28/2013 5:34 PM . Talya Felder MD DIAGNOSTIC IMAGING ORDERABLES * (ABNORMAL) GLUCOSE ACCUCHECK (03/28/2013 10:56 AM CDT) Only the most recent of46 resultswithin the time period is included. [facility] Glucose, Fingerstick 123(H) 70 - 110 MG/DL [facility] Comment:PERFORMED BY: SUNNY NAILS 03/28/2013 10:5 6 AM CDT 03/28/2013 11:22 AM CDT Talya Felder MD LAB - CHEMISTRY ORD ERABLES [address] [phone] * (ABNORMAL) CBC W AUTO DIFFERENTIAL (03/28/2013 5:45 AM CDT) Only the most recent of13 resultswithin the time period is included. [facility] WBC 8.0 3.5 - 10.5 10^3/uL [facility] RBC 3.29(L) 4.30 - 5.70 10^6/uL [facility] Hemoglobin 10.1(L) 13.5 - 17.5 g/dL [facility] Hematocrit 31.2(L) 39.0 - 50.0 % [facility] MCV 94.8 81.0 - 97.0 FL [facility] MCH 30.7 28.0 - 34.0 PG [facility] MCHC 32.4 32.0 - 36.0 G/DL [facility] Platelet 367 150 - 400 10^3/uL [facility] RDW 13.1 11.2 - 14.8 % [facility] RDW-SD 45.6 36 - 50 FL [facility] MPV 10.1 9.3 - 12.8 FL [facility] Differential Type MANUAL [facility] Neutrophils Absolute Manual 5.60 1.7 - 7.0 10^3/uL [facility] Comment:(BANDS AND SEGS) X W BC = NEUT # (ANC) Lymphocytes Absolute Manual 1.44 0.9 - 2.9 10^3/uL [facility] Monocyte Absolute Manual 0.16(L) 0.3 - 0.9 10^3/uL [facility] Eosinophils Absolute Manual 0.24 0.05 - 0.50 10^3/uL [facility] Band % Manual 5 0 - 10 % [facility] Neutrophils % manual 65(H) 30 - 60 % [facility] Lymphocytes % manual 18(L) 20 - 45 % [facility] Monocytes % Manual 2 2 - 10 % [facility] Eosinophils % Manual 3 1 - 6 % [facility] Metamyelocytes % Manual 7(HH) 0 % [facility] Platelet Estimate ADQ,RBC MORPH NORMAL [facility] Venous blood specimen (specimen) 03/28/2013 5:45 AM CDT 03/28/2013 6:48 AM CDT Talya Felder MD LAB - HEMATOLOGY OR DERABLES Performing Organization Address City/State/[place] Co de Phone Number [address] [phone] * BASIC METABOLIC PANEL (CALCIUM TOTAL) (03/28/2013 5:45 AM CDT) Only the most recent of12 resultswithin the time period is included. BUN 19 7 - 26 mg/dL [facility] Creatinine 1.2 0.6 - 1.2 mg/dL [facility] eGFR by MDRD > 60 ML/MIN [facility] Comment: Chronic kidney disease: <60 ml/min Kidney failure: <15 ml/min Based on BSA of 1.73m2. Sodium 141 136 - 145 mmol/L [facility] Potassium 4.3 3.5 - 4.5 mmol/L [facility] Chloride 105 98 - 107 mmol/L [facility] CO2 24 22 - 29 mmol/L [facility] Glucose 110 70 - 115 mg/dL [facility] Calcium 9.2 8.4 - 10.2 mg/dL [facility] Anion Gap 16 8 - 18 [facility] BUN/Creatinine Ratio 15 7 - 23 [facility] Osmolality Calculation 279 270 - 300 mOsm/kg [facility] Venous blood specimen (specimen) 03/28/2013 5:45 AM CDT 03/28/2013 6:48 AM CDT Talya Felder MD LAB - CHEMISTRY ORD ERABLES [facility] [address] [phone] * EKG 12-LEAD (03/27/2013 4:49 PM CDT) Only the most recent of2 resultswithin the time period is included. Narrative [facility] - 03/27/2013 4:49 PM CDT Procedure Note Provider, MD Lore - 01/25/2018 Brandon Mays ECG ORDERABLES Performing Organization Address [facility]/[place] Co de Phone Number [facility] * XR ABDOMEN KUB PORTABLE (03/27/2013 1:20 PM CDT) Only the most recent of2 resultswithin the time period is included. Anatomical Region Laterality Modality Other Impressions 03/28/2013 5:33 PM CDT Impression: No evidence of residual renal calculi. Report dictated by Talya Arce M.D. (resident). This report was approved by Talya Arce M.D. on 03/28/2013 2:49 PM . I, Dr. Ngozi CHAVEZ M.D. have personally reviewed and interpreted this examination/study. This report was electronically signed by Ngozi CHAVEZ M.D. on 03/28/2013 5:33 PM . Narrative 03/28/2013 5:33 PM CDT Exam: PX ABDOMEN 1 VW Date: 03/27/2013 3:17 PM History: To assess for residual right renal stones s/p PCNL. Findings: A percutaneous nephrostomy tube and nephroureteral stent is in place on the right. Bowel gas superimposes the kidneys which makes evaluation difficult. Within the limits of the study no radiopaque renal calculi are seen superimposing either kidney or the anticipated course of the ureters. The bowel gas pattern is nonobstructive. No soft tissue masses are seen. There is dextroscoliosis of the lower thoracic and lumbar spine. A calcification in the right bony pelvis represents a phlebolith as seen on CT of 12/25/2012. A Scott catheter is present in the bladder. Procedure Note Geena Chavez MD - 11/18/2017 Exam: PX ABDOMEN 1 VW Date: 03/27/2013 3:17 PM History: To assess for residual right renal stones s/p PCNL. Findings: A percutaneous nephrostomy tube and nephroureteral stent is in place onthe right. Bowel gas superimposes the kidneys which makes evaluationdifficult. Within the limits of the study no radiopaque renal calculi areseen superimposing either kidney or the anticipated course of the ureters. The bowel gas pattern is nonobstructive. No soft tissue masses are seen.There is dextroscoliosis of the lower thoracic and lumbar spine. Acalcification in the right bony pelvis represents a phlebolith as seen onCT of 12/25/2012. A Scott catheter is present in the bladder. IMPRESSION Impression: No evidence of residual renal calculi. Report dictated by Talya Arce M.D. (resident). This report was approved by Talya Arce M.D. on 03/28/2013 2:[address] Ngozi Gomez M.D. have personally reviewed and interpreted thisexamination/study. This report was electronically signed by Ngozi CHAVEZ M.D. on03/28/2013 5:33 PM . Talya Felder MD DIAGNOSTIC IMAGING ORDERABLES * VANCOMYCIN LEVEL TROUGH (03/26/2013 9:32 PM CDT) Only the most recent of4 resultswithin the time period is included. Vancomycin Trough 12.4 10.0 - 20.0 mcg/mL [facility] Comment: TROUGH CONCENTRATIONS IN THE HIGHER END OF THE RANGE (15-20 MCG/ML) ARE RECOMMENDED IN THE TREATMENT OF COMPLICATED INFECTIONS: I.E. ENDOCARDITIS, OSTEOMYELITIS, MENINGITIS, HOSPITAL-ACQUIRED PNEUMONIA. [facility]. 2009. AUG 20;66(1):82-98. Venous blood specimen (specimen) 03/26/2013 9:32 PM CDT 03/26/2013 9:50 PM CDT Narrative [facility] - 03/26/2013 10:08 PM CDT Please make sure that this vanc trough is drawn before the evening dose of vancomycin is begun on 03/26. The trough should be drawn approximately one hour before the next dose is given. Please communicate this to the nurse who will be working overnight caregiver. It is very important that we get accurate numbers on the troughs in order to adequately dose this patient's antibiotic. Thank you. Talya Felder MD LAB - CHEMISTRY ORD ERABLES [address] [phone] * FL HUANG SURGERY (03/26/2013 4:11 PM CDT) Anatomical Region Laterality Modality Other Narrative 03/26/2013 4:12 PM CDT Fluoroscopy was used for this exam. Please see the Operative report. Procedure Note ProviderLore MD - 11/18/2017 Fluoroscopy was used for this exam. Please see the Operative report. Talya Felder MD FLUOROSCOPY ORDERAB LES * (ABNORMAL) URINALYSIS W/MICROSCOPIC NO CULTURE (03/26/2013 3:30 PM CDT) Color UA YELLOW STRW,YELLOW [facility] Clarity UA HAZY(A) CLEAR [facility] Specific [place] Urine 1.011 1.001 - 1.030 [facility] pH UA <= 5.0 5.0 - 8.0 [facility] Protein UA NEGATIVE <20 mg/dL [facility] Glucose UA NEGATIVE NEGATIVE mg/dL [facility] Ketones NEGATIVE NEGATIVE mg/dL [facility] Bilirubin UA NEGATIVE NEGATIVE mg/dL [facility] Blood UA TRACE(A) NEGATIVE [facility] Nitrite UA NEGATIVE NEGATIVE [facility] Leukocyte Esterase NEGATIVE NEGATIVE [facility] Urobilinogen UA < 2.0 <2.0 mg/dL [facility] RBC Urine 1 0 - 8 /HPF [facility] WBC Urine 2 0 - 2 /HPF [facility] Bacteria Urine RARE <OCCASIONAL /HPF [facility] Squamous Epithelial Cells UA 2(H) 0 - 1 /HPF [facility] Mucus Urine MANY(A) NONE SEEN /LPF [facility] Hyaline Casts UA 2 0 - 2 /LPF [facility] Urine specimen (specimen) URINE SPECIMEN COLLECTION, CATHETERIZED / Unknown 03/26/2013 3:30 PM CDT 03/26/2013 4:36 PM CDT Talya Felder MD LAB - URINALYSIS OR DERABLES Performing Organization Address [facility]/ZIP Co de Phone Number [address] [phone] * CULTURE URINE (03/26/2013 3:30 PM CDT) Culture Urine NO GROWTH OF >100 CFU/ML AFTER 48 HOURS. [facility] Urine specimen (specimen) URINE SPECIMEN COLLECTION, CATHETERIZED / Unknown 03/26/2013 3:30 PM CDT 03/26/2013 4:42 PM CDT Narrative [facility] - 03/28/2013 10:34 AM CDT Specimen Type->Urine Talya Felder MD LAB - MICROBIOLOGY ORDERABLES Performing Organization Address City/[facility]/ZIP Co de Phone Number [address] [phone] * PHOSPHORUS BLOOD (03/26/2013 9:45 AM CDT) Only the most recent of4 resultswithin the time period is included. Phosphorus 4.3 2.3 - 4.7 mg/dL [facility] Serum 03/26/2013 9:45 AM CDT 03/26/2013 12:54 PM CDT Talya Felder MD LAB - [place]MISTRY [place] [address], [facility] [phone] * MAGNESIUM BLOOD (03/26/2013 9:45 AM CDT) Only the most recent of4 resultswithin the time period is included. Magnesium 2.0 1.6 - 2.6 mg/dL [facility] Serum 03/26/2013 9:45 AM CDT 03/26/2013 12:54 PM CDT Talya Felder MD LAB - CHEMISTRY ORD ERABLES Performing Organization Address [facility]/[place] Co de Phone Number [address] [phone] * CT CHEST WO CONTRAST (03/25/2013 4:15 PM CDT) Anatomical Region Laterality Modality Chest Other Impressions 03/26/2013 9:24 AM CDT IMPRESSION: 1. Diffuse atelectasis of the right lung, improved at the right base. There is no evidence of empyema or lobar pneumonia. 2. Significant elevation of the right diaphragm may relate to diffuse right lung atelectasis and volume loss, although right diaphragmatic paralysis is a consideration. 3. Bilateral renal calculi with percutaneous nephroureteral stent, partially imaged. 4. Right apically oriented chest tube with trace residual right pneumothorax. This report was approved by Darrion Albarran M.D. on 03/26/2013 8:48 AM . I, Dr. MABEL SIMMONS M.D. have personally reviewed and interpreted this examination/study. This report was electronically signed by MABEL SIMMONS M.D. on 03/26/2013 9:24 AM . Narrative 03/26/2013 9:24 AM CDT EXAMINATION: Computed tomography of the chest without contrast DATE: 03/25/2013 HISTORY: Empyema vs PNA TECHNIQUE: Computed tomography of the chest was performed with contrast according to standard protocol. COMPARISON: Comparison is made with CT chest dated 03/20/13. FINDINGS: A superiorly oriented right thoracostomy tube which traverses the fissure has been retracted slightly and terminates in the posterior apical pleural space. There is a trace right pneumothorax, decreased compared to prior. There is right upper, right middle, and right lower lobe atelectasis with elevation of the right hemidiaphragm, slightly decreased at the right lower lobe compared to prior exam. There is mild right upper lobe and left base atelectasis. There is no sizable pleural effusion or evidence of empyema. The heart size is normal without pericardial effusion. The trachea is patent and midline. The nonenhanced vascular mediastinal structures are unremarkable. Coronary artery calcifications are noted. No axillary, supraclavicular, or hilar adenopathy is visible. Subcentimeter mediastinal lymph nodes are present. Calcified right hilar and right paratracheal lymph nodes are present. The osseous thorax is intact. A right nephroureteral stent is partially imaged. Nonobstructing bilateral renal calculi are seen, right greater than left. A tiny calcified granuloma is present at the dome of the liver. The visualized portions of the liver, gallbladder, spleen, pancreas, and adrenals are unremarkable. Procedure Note Mabel Simmons MD - 11/18/2017 EXAMINATION: Computed tomography of the chest without contrast DATE: 03/25/2013 HISTORY: Empyema vs PNA TECHNIQUE: Computed tomography of the chest was performed with contrastaccording to standard protocol. COMPARISON: Comparison is made with CT chest dated 03/20/13. FINDINGS: A superiorly oriented right thoracostomy tube which traverses the fissurehas been retracted slightly and terminates in the posterior apical pleuralspace. There is a trace right pneumothorax, decreased compared to prior.There is right upper, right middle, and right lower lobe atelectasis with elevation of the righthemidiaphragm, slightly decreased at the right lower lobe compared toprior exam. There is mild right upper lobe and left base atelectasis.There is no sizable pleural effusion or evidence of empyema. The heart size is normal without pericardialeffusion. The trachea is patent and midline. The nonenhanced vascularmediastinal structures are unremarkable. Coronary artery calcificationsare noted. No axillary, supraclavicular, or hilar adenopathy is visible. Subcentimeter mediastinal lymph nodes arepresent. Calcified right hilar and right paratracheal lymph nodes arepresent. The osseous thorax is intact. A right nephroureteral stent is partially imaged. Nonobstructing bilateralrenal calculi are seen, right greater than left. A tiny calcifiedgranuloma is present at the dome of the liver. The visualized portions ofthe liver, gallbladder, spleen, pancreas, and adrenals are unremarkable. IMPRESSION IMPRESSION: 1. Diffuse atelectasis of the right lung, improved at the right base.There is no evidence of empyema or lobar pneumonia. 2. Significant elevation of the right diaphragm may relate to diffuseright lung atelectasis and volume loss, although right diaphragmaticparalysis is a consideration. 3. Bilateral renal calculi with percutaneous nephroureteral stent,partially imaged. 4. Right apically oriented chest tube with trace residual rightpneumothorax. This report was approved by Darrion Albarran M.D. on 03/26/2013 8:[address] MABEL Gomez M.D. have personally reviewed and interpreted thisexamination/study. This report was electronically signed by MABEL SIMMONS M.D. on 03/26/20139:24 AM . Talya Feldre MD CT ORDERABLES * CT CHEST ABDOMEN WO CONTRAST (03/20/2013 11:09 AM CDT) Anatomical Region Laterality Modality Chest, Abdomen Other Impressions 03/21/2013 6:06 PM CDT IMPRESSION: 1. Right nephroureteral catheter, as above. 2. Bilateral renal calculi without evidence of hydronephrosis or hydroureter. 3. Right apically oriented chest tube with a small right pneumothorax. 4. Consolidation in right middle and lower lobes with volume loss likely represents atelectasis, although infection cannot be entirely excluded. This report was approved by Mabel Carson M.D. on 03/21/2013 12:[address] Ngozi Gomez M.D. have personally reviewed and interpreted this examination/study. This report was electronically signed by Ngozi CHAVEZ M.D. on 03/21/2013 6:06 PM . Narrative 03/21/2013 6:06 PM CDT EXAMINATION: Computed tomography of the chest and abdomen without contrast HISTORY: Evaluate right nephrostomy tube placement TECHNIQUE: Computed tomography of the chest and abdomen was performed without intravenous contrast according to standard protocol. FINDINGS: No prior study is available for comparison. Chest: There is a superiorly oriented right thoracostomy tube which traverses the fissure and terminates in the posterior right apical pleural space. A small right pneumothorax is present. There is consolidation of the right middle lobe and right lower lobe lobe with volume loss and elevation of the right hemidiaphragm. Mild right upper lobe and left basilar atelectasis is visible. No suspicious pulmonary nodules are visible. There is no pleural effusion. The airway is patent. No axillary, supraclavicular, or hilar adenopathy is visible. Subcentimeter mediastinal lymph nodes are present. Calcified right hilar and right paratracheal lymph nodes are present. Heart size is normal. No pericardial effusion is visible. The left-sided aortic arch is normal in course and caliber. Minimal atherosclerotic calcifications in the aorta are identified. The remaining nonenhanced vascular structures are normal. Abdomen: Evaluation of the intra-abdominal structures is limited due to lack of intravenous contrast. The liver is normal. A tiny calcified granuloma is present at the dome liver. There is no evidence of intrahepatic or extrahepatic biliary ductal dilatation. The gallbladder is normal without gallstones. There is no evidence of gallbladder wall thickening or pericholecystic fluid. The spleen is normal. Multiple small splenules are present. There is mild fatty replacement of the pancreas, greatest at the pancreatic head. The bilateral adrenal glands are normal. A right nephroureteral catheter enters a right inferior calyx and is seen traversing inferiorly in the right ureter as far as the superior aspect of the right pelvis. There is a 2.7 x 0.5 cm x 1.0 cm calculus in a right inferior calyx. There is a nonobstructive 2 mm right mid calyx renal calculus. A 6 mm left mid calyx nonobstructive renal calculus is seen. There is no evidence of hydronephrosis or hydroureter. Mild right perinephric fat stranding is visible. There is no free intra-peritoneal air or fluid. Portions of the stomach, small bowel, and large bowel are normal in course caliber without evidence of wall thickening or obstruction. Colonic diverticulosis without diverticulitis is identified. A normal appendix is seen in the right lower quadrant. There is mild atherosclerotic calcification of the abdominal aorta and iliac arteries. The remaining nonenhanced vascular structures are normal. Prominent superior mesenteric lymph nodes are seen, measuring up to 1.2 cm in short axis, likely reactive (image 60, series 3). Subcentimeter retroperitoneal lymph nodes are also identified. Bone windows demonstrate no suspicious lytic or blastic lesions. There is S- shaped thoracolumbar scoliosis. Degenerative changes of the thoracolumbar spine are seen. Procedure Note Michael Guillen MD - 11/18/2017 EXAMINATION: Computed tomography of the chest and abdomen withoutcontrast HISTORY: Evaluate right nephrostomy tube placement TECHNIQUE: Computed tomography of the chest and abdomen was performedwithout intravenous contrast according to standard protocol. FINDINGS: No prior study is available for comparison. Chest: There is a superiorly oriented right thoracostomy tube which traverses thefissure and terminates in the posterior right apical pleural space. Asmall right pneumothorax is present. There is consolidation of the rightmiddle lobe and right lower lobe lobe with volume loss and elevation of the right hemidiaphragm. Mildright upper lobe and left basilar atelectasis is visible. No suspiciouspulmonary nodules are visible. There is no pleural effusion. The airway ispatent. No axillary, supraclavicular, or hilar adenopathy is visible.Subcentimeter mediastinal lymph nodes are present. Calcified right hilarand right paratracheal lymph nodes are present. Heart size is normal. No pericardial effusion is visible. The left-sidedaortic arch is normal in course and caliber. Minimal atheroscleroticcalcifications in the aorta are identified. The remaining nonenhancedvascular structures are normal. Abdomen: Evaluation of the intra-abdominal structures is limited due to lack ofintravenous contrast. The liver is normal. A tiny calcified granuloma is present at the domeliver. There is no evidence of intrahepatic or extrahepatic biliary ductaldilatation. The gallbladder is normal without gallstones. There is noevidence of gallbladder wall thickening or pericholecystic fluid. The spleen is normal. Multiple smallsplenules are present. There is mild fatty replacement of the pancreas, greatest at thepancreatic head. The bilateral adrenal glands are normal. A right nephroureteral catheter enters a right inferior calyx and is seentraversing inferiorly in the right ureter as far as the superior aspect ofthe right pelvis. There is a 2.7 x 0.5 cm x 1.0 cm calculus in a rightinferior calyx. There is a nonobstructive 2 mm right mid calyx renal calculus. A 6 mm left mid calyxnonobstructive renal calculus is seen. There is no evidence ofhydronephrosis or hydroureter. Mild right perinephric fat stranding isvisible. There is no free intra-peritoneal air or fluid. Portions of the stomach,small bowel, and large bowel are normal in course caliber without evidenceof wall thickening or obstruction. Colonic diverticulosis withoutdiverticulitis is identified. A normal appendix is seen in the right lower quadrant. There is mild atherosclerotic calcification of the abdominal aorta andiliac arteries. The remaining nonenhanced vascular structures arenormal. Prominent superior mesenteric lymph nodes are seen, measuring up to 1.2 cmin short axis, likely reactive (image 60, series 3). Subcentimeterretroperitoneal lymph nodes are also identified. Bone windows demonstrate no suspicious lytic or blastic lesions. There isS- shaped thoracolumbar scoliosis. Degenerative changes of thethoracolumbar spine are seen. IMPRESSION IMPRESSION: 1. Right nephroureteral catheter, as above. 2. Bilateral renal calculi without evidence of hydronephrosis orhydroureter. 3. Right apically oriented chest tube with a small right pneumothorax. 4. Consolidation in right middle and lower lobes with volume loss likelyrepresents atelectasis, although infection cannot be entirely excluded. This report was approved by Mabel Carson M.D. on 03/21/2013 12:08 PM . I, Dr. Ngozi CHAVEZ M.D. have personally reviewed and interpreted thisexamination/study. This report was electronically signed by Ngozi CHAVEZ M.D. on03/21/2013 6:06 PM . Talya Felder MD CT ORDERABLES * LD BODY FLUID ([facility] ONLY) (03/20/2013 9:00 AM CDT) LD Fluid 2110 Units/L [facility] Comment: REFERENCE RANGE: NONE ESTABLISHED FOR FLUIDS THIS IS AN FDA APPROVED TEST BUT HAS NOT BEEN VALIDATED FOR USE WITH FLUIDS. 03/20/2013 9:00 AM CDT 03/20/2013 3:00 PM CDT Talya Felder MD LAB - BODY FLUID OR DERABLES Performing Organization Address [facility]/ZIP Co de Phone Number [address] [phone] * GLUCOSE BODY FLUID ([facility] ONLY) (03/20/2013 9:00 AM CDT) Glucose, Fluid 103 mg/dL [facility] Comment:REFERENCE RANGE: NON E ESTABLISHED FOR FLUIDS 03/20/2013 9:00 AM CDT 03/20/2013 3:00 PM CDT Talya Felder MD LAB - BODY FLUID OR DERABLES Performing Organization Address [facility] Co de Phone Number [address] [phone] * CELL COUNT W DIFFERENTIAL FLUID (03/20/2013 9:00 AM CDT) Fluid Type PFL [facility] Color Fluid RED [facility] Clarity Fluid CLOUDY [facility] Volume Fluid 2 ML [facility] WBC, Fluid 30682 MM3 [facility] RBC Fluid [id number] /MM3 [facility] Segs Fluid 98 % [facility] Monocytes Fluid 2 % [facility] Comment 1 REVIEW REQUESTED [facility] Comment: RARE BACTERIA SEEN THIS DIFFERENTIAL WILL BE REVIEWED BASED ON [facility]'S REVIEW PROTOCOL. A CONFIRMED, AMMENDED OR CORRECTED REPORT WILL BE RESULTED UNDER THE TEST NAME REVIEWED DIF . 03/20/2013 9:00 AM CDT 03/20/2013 3:00 PM CDT Talya Felder MD LAB - BODY FLUID OR DERABLES Performing Organization Address [facility]/ZIP Co de Phone Number [address] [phone] * CULTURE AFB (03/20/2013 9:00 AM CDT) Culture Acid-Fast Bacilli NO GROWTH OF ACID FAST BACILLI AFTER 8 WEEKS. [facility] Pleural fluid specimen (specimen) (Pleural, Right) 03/20/2013 9:00 AM CDT 03/20/2013 3:02 PM CDT Narrative [facility] - 05/21/2013 10:07 AM CDT Tube 3 Specimen Type->Pleural fluid PLATES AND BOTTLES/JL 03/20/13 Talya Felder MD LAB - MICROBIOLOGY ORDERABLES Performing Organization Address City/[facility]/ZIP Co de Phone Number [address] [phone] * PATHOLOGY SMEAR BODY FLUID (03/20/2013 9:00 AM CDT) Pathologist [facility] Manual Differential Reviewed CONFIRMED [facility] Comment: THE DIFFERENTIAL HAS BEEN REVIEWED AND ALL RESULTS HAVE BEEN CONFIRMED. Microscopic exam of this pleural fluid shows predominantly mature neutrophils with occasional lymphocytes. Rare bacteria (intracellular), are also seen. The overall picture is compatible with an infectious etiology. Correlation with culture results is recommended. Reviewed by Sana Pederson MD 03/20/2013 9:00 AM CDT 03/20/2013 3:00 PM CDT Talya Felder MD LAB - PATHOLOGY/[place] [address], [facility] [phone] * CULTURE AEROBIC (03/20/2013 9:00 AM CDT) Culture Routine GROWTH OF GRAM POSITIVE COCCI BEING IDENTIFIED. GRAM POSITIVE COCCI IDENTIFIED [STAPHYLOCOCCUS AUREUS]. [facility] Culture Results [facility] Organism ID STAPHYLOCOCCUS AUREUS [facility] Comment:STAPHYLOCOCCUS AUREU S Pleural fluid specimen (specimen) 03/20/2013 9:00 AM CDT 03/20/2013 3:02 PM CDT Narrative [facility] - 03/22/2013 1:02 PM CDT PLATES AND BOTTLES/JL 03/20/13 Organism Antibiotic Method Susceptibility Staphylococcus aureus Clindamycin CULTURE AEROBIC <=0.25: Sensitive Staphylococcus aureus Erythromycin CULTURE AEROBIC <=0.25: Sensitive Staphylococcus aureus Gentamicin CULTURE AEROBIC <=0.5: Sensitive Staphylococcus aureus Levofloxacin CULTURE AEROBIC 0.25: Sensitive Staphylococcus aureus Oxacillin CULTURE AEROBIC <=0.25: Sensitive Comment: OXACILLIN SUSCEPTIBILITY PREDICTS SUSCEPTIBILITY TO BETA-LACTAM/BETA-LACTAMASE INHIBITOR COMBINATIONS, CEPHALOSPORINS, AND CARBAPENEMS. OXACILLIN RESISTANCE PREDICTS RESISTANCE TO ALL PENICILLINS, BETA-LACTAM/BETA-LACTAMASE INHIBITOR COMBINATIONS, CEPHALOSPORINS, AND CARBAPENEMS, WITH THE EXCEPTION OF CEPHALOSPORINS WITH ANTI-MRSA ACTIVITY. Staphylococcus aureus Tetracycline CULTURE AEROBIC <=1: Sensitive Staphylococcus aureus Trimethoprim-sulfa methoxazo le CULTURE AEROBIC <=10: Sensitive Staphylococcus aureus Vancomycin CULTURE AEROBIC 1: Sensitive Talya Felder MD LAB - MICROBIOLOGY ORDERABLES Performing Organization Address City/[facility]/ZIP Co de Phone Number [address] [phone] * CHOLESTEROL FLUID (03/20/2013 9:00 AM CDT) Cholesterol Fluid 73 mg/dL [facility] Comment:REFERENCE RANGE: NON E ESTABLISHED FOR FLUIDS 03/20/2013 9:00 AM CDT 03/20/2013 3:00 PM CDT Talya Felder MD LAB - BODY FLUID OR DERABLES Performing Organization Address [facility]/ZIP Co de Phone Number [address] [phone] * AFB SMEAR (03/20/2013 9:00 AM CDT) Acid-Fast Bacilli Smear NO ACID FAST BACILLI SEEN. [facility] Pleural fluid specimen (specimen) 03/20/2013 9:00 AM CDT 03/20/2013 3:02 PM CDT Narrative [facility] - 03/21/2013 12:45 PM CDT PLATES AND BOTTLES/JL 03/20/13 Talya Felder MD LAB - MICROBIOLOGY ORDERABLES [address] [phone] * GRAM STAIN SMEAR (03/20/2013 9:00 AM CDT) Gram Stain MANY POLYMORPHONUCLEAR CELLS; MODERATE GRAM POSITIVE COCCIIN CLUSTERS AND PAIRS SEEN. GRAM STAINS ARE ROUTINELY SCREENED FOR THE PRESENCE OF POLYMORPHONUCLEAR CELLS. RESULTS CALLED TO AND READ BACK BY SRIDEVI AKERS AT 1527 03/20/13. RESULTS CALLED TO AND READ BACK BY DR. MARX AT 1530 03/20/13. [facility] Culture Results [facility] Pleural fluid specimen (specimen) (Pleural, Right) 03/20/2013 9:00 AM CDT 03/20/2013 3:02 PM CDT Narrative [facility] - 03/20/2013 3:30 PM CDT Tube 3 Specimen Type->Pleural fluid PLATES AND BOTTLES/JL 03/20/13 Talya Felder MD LAB - MICROBIOLOGY ORDERABLES Performing Organization Address City/[facility]/ZIP Co de Phone Number [address] [phone] * PROTEIN FLUID (03/20/2013 9:00 AM CDT) Protein Fluid 3.6 g/dL [facility] Comment:REFERENCE RANGE: NON E ESTABLISHED FOR FLUIDS 03/20/2013 9:00 AM CDT 03/20/2013 3:00 PM CDT Talya Felder MD LAB - BODY FLUID OR DERABLES [address] [phone] * PH FLUID (03/20/2013 9:00 AM CDT) pH Special Fluids 7.02 [facility] Comment: ORDERS NOT FOUND UNTIL LATE AND SPECIMEN WAS NOT ON ICE, RESULTS MAY BE EFFECTED. REFERENCE RANGE: NONE ESTABLISHED FOR FLUIDS Pleural fluid specimen (specimen) (Pleural, Right) 03/20/2013 9:00 AM CDT 03/20/2013 3:01 PM CDT Narrative [facility] - 03/20/2013 3:06 PM CDT Tube 3 Talya Felder MD LAB - BODY FLUID OR DERABLES Performing Organization Address [facility]/[place] de Phone Number [address] [phone] * CREATININE FLUID (03/20/2013 9:00 AM CDT) Creatinine Fluid 3.3 mg/dL [facility] Pleural fluid specimen (specimen) (Pleural, Right) 03/20/2013 9:00 AM CDT 03/20/2013 10:26 AM CDT Narrative [facility] - 03/20/2013 11:07 AM CDT Please obtain a body fluid creatinine on the drainage from the Chest tube drainage. Talya Felder MD LAB - BODY FLUID OR DERABLES Performing Organization Address [facility] de Phone Number [address] [phone] * AMYLASE FLUID (03/20/2013 9:00 AM CDT) Amylase Fluid 51 Units/L [facility] Comment:REFERENCE RANGE: NON E ESTABLISHED FOR FLUIDS 03/20/2013 9:00 AM CDT 03/20/2013 3:00 PM CDT Talya Felder MD LAB - BODY FLUID OR DERABLES Performing Organization Address [facility] de Phone Number [address] [phone] * (ABNORMAL) PT-INR SLU (03/20/2013 6:00 AM CDT) Only the most recent of2 resultswithin the time period is included. PT 15.5(H) 12.1 - 14.8 SECONDS [facility] Comment: Heparin concentration in excess of 1 unit/ml may cause significant prolongation of prothrombin time. INR 1.2 [facility] Comment: SUGGESTED THERAPEUTIC RANGE FOR LOW-INTENSITY COUMADIN THERAPY FOR VENOUS THROMBOEMBOLISM IS INR 2.0-3.0. FOR HIGH RISK PATIENTS (MITRAL VALVE PROSTHESIS, ATRIAL FIBRILLATION, HISTORY OF TIA/STROKE), SUGGESTED THERAPEUTIC RANGE IS INR 2.5-3.5. Plasma specimen (specimen) 03/20/2013 6:00 AM CDT 03/20/2013 6:47 AM CDT Narrative [facility] - 03/20/2013 7:06 AM CDT Is patient on Heparin, Argatroban or Dabigatran?->N IS PATIENT ON HEPARIN? (Y OR N) N Talya Felder MD LAB - COAGULATION O RDERABLES Performing Organization Address City/State/[place] Co de Phone Number [address] [phone] * (ABNORMAL) CBC W/O DIFFERENTIAL (03/20/2013 6:00 AM CDT) WBC 19.0(H) 3.5 - 10.5 10^3/uL [facility] RBC 3.96(L) 4.30 - 5.70 10^6/uL [facility] Hemoglobin 12.4(L) 13.5 - 17.5 g/dL [facility] Hematocrit 36.6(L) 39.0 - 50.0 % [facility] MCV 92.4 81.0 - 97.0 FL [facility] MCH 31.3 28.0 - 34.0 PG [facility] MCHC 33.9 32.0 - 36.0 G/DL [facility] Platelet 248 150 - 400 10^3/uL [facility] RDW 12.8 11.2 - 14.8 % [facility] RDW-SD 43.5 36 - 50 FL [facility] MPV 11.1 9.3 - 12.8 FL [facility] Venous blood specimen (specimen) 03/20/2013 6:00 AM CDT 03/20/2013 6:47 AM CDT Narrative [facility] - 03/20/2013 7:03 AM CDT IS PATIENT ON HEPARIN? (Y OR N) N Talya Felder MD LAB - HEMATOLOGY OR DERABLES Performing Organization Address City/State/[place] Co de Phone Number [facility] [address] [place] [address] * NM LUNG VENT AND PERFUSION (03/14/2013 2:41 PM CDT) Anatomical Region Laterality Modality Lung, Chest Other Impressions 03/14/2013 4:33 PM CDT Impression: 1. Low probability of PE Findings were communicated to Dr. Shin at 3:30 PM, on 03/14/2013. This report was approved by Abdullahi Wallace M.D. on 03/14/2013 4:17 PM . I, Dr. JIAN EDWARDS M.D. have personally reviewed and interpreted this examination/study. This report was electronically signed by JIAN EDWARDS M.D. on 03/14/2013 4:33 PM . Narrative 03/14/2013 4:33 PM CDT Procedure: Ventilation and Perfusion Lung (V/Q) Scan Agent: 18mCi of Xe-133, inhaled; 5.03 mCi Tc-99m MAA, IV in the left hand History: 57-year-old male patient with suspected pulmonary embolism and elevated d-dimer. Findings: No prior study is available for comparison. Multiple planar perfusion images of the lungs reveal uniform distribution of the radiotracer with no segmental appearing defects. Elevated right hemidiaphragm is noted. Ventilation scan shows normal tracer distribution during xenon entry and equilibrium phase within the lung. The early washout and delayed washout reveal no evidence of tracer trapping. Procedure Note Jian Edwards MD - 11/18/2017 Procedure: Ventilation and Perfusion Lung (V/Q) Scan Agent: 18mCi of Xe-133, inhaled; 5.03 mCi Tc-99m MAA, IV in the lefthand History: 57-year-old male patient with suspected pulmonary embolism andelevated d-dimer. Findings: No prior study is available for comparison. Multiple planar perfusion images of the lungs reveal uniform distributionof the radiotracer with no segmental appearing defects. Elevated righthemidiaphragm is noted. Ventilation scan shows normal tracer distribution during xenon entry andequilibrium phase within the lung. The early washout and delayed washoutreveal no evidence of tracer trapping. IMPRESSION Impression: 1. Low probability of PE Findings were communicated to Dr. Shin at 3:30 PM, on 03/14/2013. This report was approved by Abdullahi Wallace M.D. on 03/14/2013 4:17 PM . I, Dr. JIAN EDWARDS M.D. have personally reviewed and interpreted thisexamination/study. This report was electronically signed by JIAN EDWARDS M.D. on 03/14/20134:33 PM . Talya Felder MD NM ORDERABLES * (ABNORMAL) PTT U (03/14/2013 2:13 PM CDT) Only the most recent of3 resultswithin the time period is included. APTT 72.7(H) 23.0 - 38.4 SECONDS [facility] Comment: SUGGESTED THERAPEUTIC RANGE FOR FULL DOSE I.V. HEPARIN THERAPY FOR VENOUS THROMBOEMBOLISM IS 66.0 - 91.0 SECONDS, WITH AN APTT RATIO OF 2.1 - 3.0. APTT Ratio 2.37 [facility] Plasma specimen (specimen) 03/14/2013 2:13 PM CDT 03/14/2013 3:28 PM CDT Narrative [facility] - 03/14/2013 4:17 PM CDT Is patient on Heparin, Argatroban or Dabigatran?->Y PT OUT FOR TESTING PER SRIDEVI MAE......[id number] IS PATIENT ON HEPARIN? (Y OR N) Y Talya Felder MD LAB - [place] [address], [facility] [phone] * TROPONIN I (03/14/2013 11:25 AM CDT) Only the most recent of2 resultswithin the time period is included. Pathologist [facility] Troponin I < 0.010 <0.032 ng/mL [facility] Comment: NOTE Any condition resulting in myocardial cell damage can potentially increase cardiac troponin-I levels. Published studies have documented that these conditions include, but are not limited to, angina, unstable angina, congestive heart failure, myocarditis, cardiac surgery, or invasive testing and non-cardiac related causes such as pulmonary embolism, renal failure, and sepsis. 6-8 hours are required for cardiac troponin I to increase after onset of chest pain. Troponin values generally remain elevated for 5-10 days. 03/14/2013 11:2 5 AM CDT 03/14/2013 11:51 AM CDT Talya Felder MD LAB - CHEMISTRY ORD ERABLES [address] [phone] * CK + CKMB PANEL (03/14/2013 11:25 AM CDT) Only the most recent of2 resultswithin the time period is included. Pathologist [facility] CK Total 40 30 - 200 Units/L [facility] CK-MB 1.5 0.0 - 6.6 ng/mL [facility] Comment: CKMB Reference Range 6.6 ng/mL or greater = Positive For indeterminate results, additional specimen(s) for CKMB, drawn at least one hour apart, may aid diagnosis. Positive CKMB results should be clinically interpreted in combination with total CK serum level. In patients without cardiac muscle damage, CKMB (ng/mL) is generally <2.5% of total CK enzyme activity (Units/L). Virtually all patients with acute myocardial infarction have CKMB values 6.6 ng/mL or greater for samples drawn at least 8-12 hours after the onset of chest pain. CKMB values generally remain elevated for 2-3 days. 03/14/2013 11:2 5 AM CDT 03/14/2013 11:51 AM CDT Talya Felder MD LAB - CHEMISTRY ORD ERABLES Performing Organization Address [facility]/ZIP Co de Phone Number [address] [phone] * VAS BILATERAL VENOUS DUPLEX LE (03/14/2013 10:50 AM CDT) Anatomical Region Laterality Modality Other Talya Felder MD VASCULAR LAB ORDERA BLES * (ABNORMAL) URINALYSIS REFLEX TO MICROSCOPIC NO CULTURE (03/14/2013 3:00 AM CDT) Only the most recent of2 resultswithin the time period is included. RBC Urine 757(H) 0 - 8 /HPF [facility] Comment:CHECKED BY DILUTION WBC Urine 46(H) 0 - 2 /HPF [facility] Bacteria Urine OCCASIONAL (A) <OCCASIONA L /HPF [facility] YEAST,[place] ([facility]) MANY(A) NONE SEEN /HPF [facility] Mucus Urine MANY(A) NONE SEEN /LPF [facility] 03/14/2013 3:00 AM CDT 03/14/2013 3:06 AM CDT Talya Felder MD LAB - URINALYSIS OR DERABLES Performing Organization Address [facility]/[place] Co de Phone Number [address] [phone] * IR URETERAL STENT PLACE (03/11/2013 4:15 PM CDT) Only the most recent of2 resultswithin the time period is included. Anatomical Region Laterality Modality Other Impressions 03/11/2013 4:53 PM CDT IMPRESSION: Successful placement of 8 [place] nephroureteral catheter as described in detail above. Jason Heath M.D. Attest that I was present for the entire procedure and that standard sterile techniques including skin antisepsis and barrier precautions were used. This report was electronically signed by EDSON HEATH M.D. on 03/11/2013 4:53 PM . Narrative 03/11/2013 4:53 PM CDT 03/11/2013 left sided nephroureteral catheter placement and antegrade pyelogram CLINICAL STATEMENT: Nephrolithiasis. Nephroureteral catheter placement for percutaneous nephrolithotomy by urology. Operators: Edson Heath M.D. Consent obtained from patient Anesthesia type: Moderate sedation Medication: 3 mg midazolam, 150 mcg fentanyl Sedation time: Approximately 60 minutes Local anesthetic: 1% lidocaine Fluoro time: 3.3 minutes Contrast: 40 mL Visipaque 320 TECHNIQUE: Patient position: prone Image guidance: Fluoroscopy Catheter type: 8 Fr nephroureteral catheter Informed consent was obtained. Patient was placed supine on the angiographic table. Under fluoroscopic visualization a midpole left renal calyx was accessed using an AccuStick set. Contrast was injected to confirm position and antegrade pyelogram was obtained demonstrating filling defects in the mid pole and renal pelvis compatible with previously seen calculi on the prior CT scan. No hydronephrosis. There is ready flow of contrast into the ureter and bladder. Following a series of exchanges, an 035 J-wire was used to remove the AccuStick set and was used to catheterize the bladder. Fluoroscopic images was saved. Following serial dilations, an 8 [place] nephroureteral catheter was placed over the wire. The distal pigtail in the bladder and proximal sideholes in the renal pelvis. Contrast was injected to confirm position. Complication: Procedure related hematoma. Condition: Stable EBL: Minimal FINDINGS: Hydronephrosis: None Level of obstruction: Calculi obstructing the midpole calyx and renal pelvis Bladder type: [place] Final catheter position: Distal pigtail terminating bladder, proximal pigtail could not be formed due to renal stone and was left in the renal pelvis. Procedure Note Edson Heath MD - 11/18/2017 03/11/2013 left sided nephroureteral catheter placement and antegradepyelogram CLINICAL STATEMENT: Nephrolithiasis. Nephroureteral catheter placementfor percutaneous nephrolithotomy by urology. Operators: Edson Heath M.D. Consent obtained from patient Anesthesia type: Moderate sedation Medication: 3 mg midazolam, 150 mcg fentanyl Sedation time: Approximately 60 minutes Local anesthetic: 1% lidocaine Fluoro time: 3.3 minutes Contrast: 40 mL Visipaque 320 TECHNIQUE: Patient position: prone Image guidance: Fluoroscopy Catheter type: 8 Fr nephroureteral catheter Informed consent was obtained. Patient was placed supine on theangiographic table. Under fluoroscopic visualization a midpole left renal calyx was accessedusing an AccuStick set. Contrast was injected to confirm position andantegrade pyelogram was obtained demonstrating filling defects in the midpole and renal pelvis compatible with previously seen calculi on the prior CT scan. No hydronephrosis. There isready flow of contrast into the ureter and bladder. Following a series of exchanges, an 035 J-wire was used to remove theAccuStick set and was used to catheterize the bladder. Fluoroscopic imageswas saved. Following serial dilations, an 8 [place] nephroureteral catheter was placedover the wire. The distal pigtail in the bladder and proximal sideholes inthe renal pelvis. Contrast was injected to confirm position. Complication: Procedure related hematoma. Condition: Stable EBL: Minimal FINDINGS: Hydronephrosis: None Level of obstruction: Calculi obstructing the midpole calyx and renalpelvis Bladder type: [place] Final catheter position: Distal pigtail terminating bladder, proximalpigtail could not be formed due to renal stone and was left in the renalpelvis. IMPRESSION IMPRESSION: Successful placement of 8 [place] nephroureteral catheter asdescribed in detail above. Jason Heath M.D. Attest that I was present for the entire procedureand that standard sterile techniques including skin antisepsis and barrierprecautions were used. This report was electronically signed by EDSON HEATH M.D. on03/11/2013 4:53 PM . Talya Felder MD IR ORDERABLES * IR PERC NEPHROSTOMY (03/11/2013 4:15 PM CDT) Only the most recent of2 resultswithin the time period is included. Anatomical Region Laterality Modality Other Impressions 03/11/2013 4:53 PM CDT IMPRESSION: Successful placement of 8 [place] nephroureteral catheter as described in detail above. Jason Heath M.D. Attest that I was present for the entire procedure and that standard sterile techniques including skin antisepsis and barrier precautions were used. This report was electronically signed by EDSON HEATH M.D. on 03/11/2013 4:53 PM . Narrative 03/11/2013 4:53 PM CDT 03/11/2013 left sided nephroureteral catheter placement and antegrade pyelogram CLINICAL STATEMENT: Nephrolithiasis. Nephroureteral catheter placement for percutaneous nephrolithotomy by urology. Operators: Edson Heath M.D. Consent obtained from patient Anesthesia type: Moderate sedation Medication: 3 mg midazolam, 150 mcg fentanyl Sedation time: Approximately 60 minutes Local anesthetic: 1% lidocaine Fluoro time: 3.3 minutes Contrast: 40 mL Visipaque 320 TECHNIQUE: Patient position: prone Image guidance: Fluoroscopy Catheter type: 8 Fr nephroureteral catheter Informed consent was obtained. Patient was placed supine on the angiographic table. Under fluoroscopic visualization a midpole left renal calyx was accessed using an AccuStick set. Contrast was injected to confirm position and antegrade pyelogram was obtained demonstrating filling defects in the mid pole and renal pelvis compatible with previously seen calculi on the prior CT scan. No hydronephrosis. There is ready flow of contrast into the ureter and bladder. Following a series of exchanges, an 035 J-wire was used to remove the AccuStick set and was used to catheterize the bladder. Fluoroscopic images was saved. Following serial dilations, an 8 [place] nephroureteral catheter was placed over the wire. The distal pigtail in the bladder and proximal sideholes in the renal pelvis. Contrast was injected to confirm position. Complication: Procedure related hematoma. Condition: Stable EBL: Minimal FINDINGS: Hydronephrosis: None Level of obstruction: Calculi obstructing the midpole calyx and renal pelvis Bladder type: [place] Final catheter position: Distal pigtail terminating bladder, proximal pigtail could not be formed due to renal stone and was left in the renal pelvis. Procedure Note Edson Heath MD - 11/18/2017 03/11/2013 left sided nephroureteral catheter placement and antegradepyelogram CLINICAL STATEMENT: Nephrolithiasis. Nephroureteral catheter placementfor percutaneous nephrolithotomy by urology. Operators: Edson Heath M.D. Consent obtained from patient Anesthesia type: Moderate sedation Medication: 3 mg midazolam, 150 mcg fentanyl Sedation time: Approximately 60 minutes Local anesthetic: 1% lidocaine Fluoro time: 3.3 minutes Contrast: 40 mL Visipaque 320 TECHNIQUE: Patient position: prone Image guidance: Fluoroscopy Catheter type: 8 Fr nephroureteral catheter Informed consent was obtained. Patient was placed supine on theangiographic table. Under fluoroscopic visualization a midpole left renal calyx was accessedusing an AccuStick set. Contrast was injected to confirm position andantegrade pyelogram was obtained demonstrating filling defects in the midpole and renal pelvis compatible with previously seen calculi on the prior CT scan. No hydronephrosis. There isready flow of contrast into the ureter and bladder. Following a series of exchanges, an 035 J-wire was used to remove theAccuStick set and was used to catheterize the bladder. Fluoroscopic imageswas saved. Following serial dilations, an 8 [place] nephroureteral catheter was placedover the wire. The distal pigtail in the bladder and proximal sideholes inthe renal pelvis. Contrast was injected to confirm position. Complication: Procedure related hematoma. Condition: Stable EBL: Minimal FINDINGS: Hydronephrosis: None Level of obstruction: Calculi obstructing the midpole calyx and renalpelvis Bladder type: [place] Final catheter position: Distal pigtail terminating bladder, proximalpigtail could not be formed due to renal stone and was left in the renalpelvis. IMPRESSION IMPRESSION: Successful placement of 8 [place] nephroureteral catheter asdescribed in detail above. I Edson Heath M.D. Attest that I was present for the entire procedureand that standard sterile techniques including skin antisepsis and barrierprecautions were used. This report was electronically signed by EDSON HEATH M.D. on03/11/2013 4:53 PM . Talya Felder MD IR ORDERABLES * XR ABDOMEN KUB (02/25/2013 11:15 AM CDT) Only the most recent of2 resultswithin the time period is included. Anatomical Region Laterality Modality Abdomen Other Impressions 02/26/2013 4:13 PM CDT Impression: Bilateral renal calculi, unchanged since the prior examination. This report was dictated by Casandra Cruz M.D. This report was approved by Casandra Cruz M.D. on 02/26/2013 2:14 PM . Jason, Dr. TALYA AMBRIZ M.D. have personally reviewed and interpreted this examination/study. This report was electronically signed by TALYA AMBRIZ M.D. on 02/26/2013 4:13 PM . Narrative 02/26/2013 4:13 PM CDT Exam: XR ABDOMEN 1 VW Date: 02/25/2013 History: Kidney stone Findings: Comparison made to the radiograph dated 02/04/2013. Air-filled loops of bowel are seen in the abdomen extending to the pelvis. There is dextroscoliosis of the lower thoracic and upper lumbar spine. The previously seen two 1 cm circular radiopacities in the region of the right kidney are unchanged, likely representing right renal calculi. The previously seen 6 mm radiopacity overlying the left kidney is also unchanged. The 5 mm circular radiopacity in the pelvis, likely representing a phlebolith, is unchanged. An adjacent 2 mm calcification is unchanged. There is increased opacification within the region of the bladder likely represent contrast from prior examination. Procedure Note Talya Ambriz MD - 11/18/2017 Exam: XR ABDOMEN 1 VW Date: 02/25/2013 History: Kidney stone Findings: Comparison made to the radiograph dated 02/04/2013. Air-filledloops of bowel are seen in the abdomen extending to the pelvis. There isdextroscoliosis of the lower thoracic and upper lumbar spine. The previously seen two 1 cm circular radiopacities in the region of theright kidney are unchanged, likely representing right renal calculi. Thepreviously seen 6 mm radiopacity overlying the left kidney is alsounchanged. The 5 mm circular radiopacity in the pelvis, likely representing a phlebolith, is unchanged. An adjacent2 mm calcification is unchanged. There is increased opacification withinthe region of the bladder likely represent contrast from priorexamination. IMPRESSION Impression: Bilateral renal calculi, unchanged since the priorexamination. This report was dictated by Casandra Cruz M.D. This report was approved by Casandra Cruz M.D. on 02/26/2013 2:[address] TALYA Gomez M.D. have personally reviewed and interpretedthis examination/study. This report was electronically signed by TALYA AMBRIZ M.D. on02/26/2013 4:13 PM . Talya Felder MD DIAGNOSTIC IMAGING ORDERABLES * URINALYSIS - POINT OF CARE (AMB) U (02/25/2013 10:28 AM CDT) Only the most recent of4 resultswithin the time period is included. Glucose UA neg [facility] Bilirubin UA POCT neg [facility] Ketones UA POCT ]neg [facility] Specific [place] UA 1.030 [facility] Blood Urine POCT neg [facility] pH UA 6.0 [facility] Protein UA neg [facility] Urobilinogen UA 0.2 [facility] Nitrite UA neg [facility] WBC UA neg [facility] Urine specimen (specimen) 02/25/2013 10:28 AM CDT Talya Felder MD LAB - POINT OF CARE ORDERABLES [facility] * (ABNORMAL) HEMOGLOBIN A1C (02/04/2013 12:13 PM CDT) Only the most recent of2 resultswithin the time period is included. Hemoglobin A1c 7.7(H) 4.4 - 6.3 % [facility] Estimated Average Glucose 174 mg/dL [facility] Blood specimen (specimen) BLOOD SPECIMEN / Unknown 02/04/2013 12:13 PM CDT 02/04/2013 12:38 PM CDT Nehemias Preston DO LAB - CHEMISTRY ORDERABLES [address] [phone] * (ABNORMAL) COMPREHENSIVE METABOLIC PANEL (02/04/2013 12:13 PM CDT) Only the most recent of2 resultswithin the time period is included. BUN 14 7 - 26 mg/dL [facility] Creatinine 1.0 0.6 - 1.2 mg/dL [facility] eGFR by MDRD > 60 ML/MIN [facility] Comment: Chronic kidney disease: <60 ml/min Kidney failure: <15 ml/min Based on BSA of 1.73m2. Sodium 140 136 - 145 mmol/L [facility] Potassium 4.1 3.5 - 4.5 mmol/L [facility] Chloride 103 98 - 107 mmol/L [facility] CO2 27 22 - 29 mmol/L [facility] Glucose 117(H) 70 - 115 mg/dL [facility] Calcium 10.4(H) 8.4 - 10.2 mg/dL [facility] Protein Total 7.1 6.0 - 8.3 g/dL [facility] Albumin 4.1 3.4 - 5.0 g/dL [facility] Bilirubin Total 0.7 0.2 - 1.2 mg/dL [facility] Alkaline Phosphatase 54 40 - 150 Units/L [facility] ALT 69(H) 0 - 55 Units/L [facility] AST 40(H) 5 - 34 Units/L [facility] Anion Gap 14 8 - 18 [facility] BUN/Creatinine Ratio 14 7 - 23 [facility] Osmolality Calculation 276 270 - 300 mOsm/kg [facility] Albumin/Globulin Ratio 1.4 1.1 - 2.3 [facility] Serum BLOOD SPECIMEN / Unknown 02/04/2013 12:13 PM CDT 02/04/2013 12:38 PM CDT Nehemias Preston DO LAB - CHEMISTRY ORDERABLES [address] [phone] Care Teams Child Care Sitter Relationship Specialty Start Date End Date Yanna Dozier, HUMAN RESOURCES FILE CLERK-[employer]RASIVE COATING MACHINE OPERATOR [address] [place] [phone] PCP - General 10/08/14
--- OUTSIDE RECORDS SUMMARY | 2024-09-30 01:06 | XMS_ITS | Data Portability ---
Author Organization 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 Plan of Treatment Reminders Order Date Submit Date Provider Last Modified By Organization Details Last Modified Time Details Appointments None recorded. Lab PSA, total, serum or plasma 2018 019 CARMELA [facility], [address] [facility], [place], [address], 9 10:38:26 HbA1c (hemoglobi n A1c), blood 2018 019 CARMELA [facility], [address] [facility], [place], [address], 9 10:38:26 CMP, serum or plasma 2018 019 CARMELA [facility], [address] [facility], [place], [address], 9 10:38:23 microalbum in/creatin ine, mass ratio, urine 2018 019 CARMELA [facility], [address], [place], [address], 9 10:38:25 CBC 2018 019 CARMELA [facility], [address] [facility], [place], [address], 9 10:38:24 TSH + free T4, serum 2018 019 CARMELA [facility], [address], [place], [address], 9 10:38:23 lipid panel, serum 2018 019 CARMELA [facility], [address], [place], [address], 9 10:38:24 PSA, total, serum or plasma 2018 019 CARMELA [facility], [address], [place], [address], 9 10:37:04 testostero ne, free + total, serum - PLEASE ALSO DRAW LABS ORDERED ON 01/2019 019 rreiter [facility], [address], [address], [place], [address], 9 09:52:24 testostero ne, free + total, serum 2018 019 CARMELA [facility], [address], [address], [place], [address], 9 10:37:03 HbA1c (hemoglobi n A1c), blood 2018 CARMELA In-Office Order, Internal Use Only DO Not Attach Compendium DO Not Attach Compendium, Do Not Delete/merge, [id number] 9 15:05:20 Referral None recorded. Procedures None recorded. Surgeries None recorded. Imaging None recorded. Medication Orders venlafaxin e 37.5 mg tablet 2018 INTERFACE Not available 9 12:41:47 venlafaxin e 37.5 mg tablet 2018 INTERFACE Not available 14:54:11 acyclovir 800 mg tablet 2018 INTERFACE [place] [id number], [address] [place] [address], [address], 9 14:59:44 Patient TargetsNo targets recorded. Patient Instructions Encounter Date Encounter Id Patient Instructions Last Modified By Organization Details Last Modified Time 10/28/2018 [id number] anxiety disorder : care instructions Not available 10/28/2018 16:26:17 Take all medicat ions as prescribed. Keep appointments with PCP and all specialists. Not available 10/28/2018 16:17:08 f/u 2 months Not available 06/2019 16:16:58 02/13/2019 [id number] sleep apnea: car e instructions Not available 02/13/2019 11:08:12 When You Want to Lose Weight: Care Instructions Not available 02/13/2019 11:08:12 learning about t ype 2 diabetes Not available 02/13/2019 11:08:12 type 2 diabetes: care instructions Not available 02/13/2019 11:08:12 gastroesophageal reflux disease (GERD): care instructions Not available 02/13/2019 11:08:12 hypothyroidism: care instructions Not available 02/13/2019 11:08:12 high cholesterol : care instructions Not available 02/13/2019 11:08:12 Continue to work on diet and decrease A1C to < 7 with fasting glucose 100. Need to see eye dr. each year for dilated eye exam. Increase activity level to get exercise most days of the week. Work on eating more fresh fruit, veggies and lean protein and less packaged foods. Cut back on the fatty foods, add fish oil or omega three fatty acids; red yeast rice may also help. Drink more water! Low salt diet. Take all medications as prescribed. Keep appointments with PCP and all specialists. Not available 02/13/2019 10:54:32 f/u 3 month Not available 01/19 10:58:57 04/08/2019 [id number] learning about m ood disorders Not available 04/08/2019 12:41:44 Continue to take medications as prescribed, do not abruptly stop them. Try walking or deep breathing exercises when feeling anxious. Stress management recommended-positive imagery. Increase activity to 30 min a day most days. Call or return if problem persists or worsens. Not available 04/08/2019 14:06:38 keep f/u as planned Not availa ble 04/08/2019 14:06:30 05/28/2019 [id number] influenza (flu) vaccine: care instructions Not available 05/28/2019 14:54:08 learning about t ype 2 diabetes Not available 05/28/2019 14:54:08 type 2 diabetes: care instructions Not available 05/28/2019 14:54:08 gastroesophageal reflux disease (GERD): care instructions Not available 05/28/2019 14:54:08 high cholesterol : care instructions Not available 05/28/2019 14:54:08 sleep apnea: car e instructions Not available 05/28/2019 14:54:08 When You Want to Lose Weight: Care Instructions Not available 05/28/2019 14:54:08 hypothyroidism: care instructions Not available 05/28/2019 14:54:08 Continue to take medications as prescribed, do not abruptly stop them. Try walking or deep breathing exercises when feeling anxious. Stress management recommended-positive imagery. Increase activity to 30 min a day most days. Call or return if problem persists or worsens. Continue to work on diet and decrease A1C to < 7 with fasting glucose 100. Need to see eye dr. each year for dilated eye exam. Increase activity level to get exercise most days of the week. Work on eating more fresh fruit, veggies and lean protein and less packaged foods. Cut back on the fatty foods, add fish oil or omega three fatty acids; red yeast rice may also help. Drink more water! Low salt diet. Take all medications as prescribed. Keep appointments with PCP and all specialists. Not available 05/28/2019 14:43:16 f/u 3 month Not available 04/2019 14:43:16 06/19/2019 [id number] shingles: care instructions Not available 06/19/2019 14:59:36 Take all medicat ions as prescribed. Call your doctor now or seek immediate medical care if: You have a new or higher fever. You have a severe headache and a stiff neck. You lose the ability to think clearly. The rash spreads to your forehead, nose, eyes, or eyelids. You have eye pain, or your vision gets worse. You have new pain in your face, or you cannot move the muscles in your face. Blisters spread to new parts of your body. Watch closely for changes in your health, and be sure to contact your doctor if: The rash has not healed after 2 to 4 weeks. You still have pain after the rash has healed. Not available 06/19/2019 15:00:57 keep f/u as planned Not availa ble 06/19/2019 15:00:51 Reason for Referral None Reported. Results Created Date Observation Date Name Description Value Unit Range Abnormal Flag Note LastModifiedBy Organization Detail LastModifiedTime 03/25/2003/26/2019 TSH + free T4, serum TSH 2.150 uIU/m L 0.450- 4.500 Not Available [facility] ([facility]) [address] [place], [address], 03/26/2019 10:38:22 03/25/2003/26/2019 TSH + free T4, serum T4,free(dire ct) 1.61 NG/dL 0.82-1 .77 Not Available [facility] ([facility]) [address] [place], [address], 03/26/2019 10:38:22 03/25/2003/26/2019 CMP, serum or plasm a glucose 228 mg/dL 65-99 above high normal Not Available [facility] ([facility]) [address] [place], [address], 03/26/2019 10:38:23 03/25/2003/26/2019 CMP, serum or plasm a BUN 20 mg/dL 8-27 Not Available [facility] ([facility]) [address] [place], [address], 03/26/2019 10:38:23 03/25/2003/2603/26/2019 CMP, serum or plasm a creatinine 0.86 mg/dL 0.76-1 .27 Not Available [facility] ([facility]) [address] [facility] [place], [address], 03/26/2019 10:38:23 03/25/20 19 03/26/2019 CMP, serum or plasm a eGFR if nonafricn AM 92 mL/mi n/1.7 3 >59 Not Available [facility] ([facility]) [address] [facility], [address], 03/26/2019 10:38:23 03/25/20 19 03/26/2019 CMP, serum or plasm a eGFR if africn AM 106 mL/mi n/1.7 3 >59 Not Available [facility] ([facility]) [address] [facility], [address], 03/26/2019 10:38:23 03/25/20 19 03/26/2019 CMP, serum or plasm a BUN/creatini ne ratio 23 10-24 Not Available [facility] ([facility]) [address] [facility], [address], 03/26/2019 10:38:23 03/25/2003/26/2019 CMP, serum or plasm a sodium 137 mmol/ L 134-14 4 Not Available [facility] ([facility]) [address] [facility], [address], 03/26/2019 10:38:23 03/25/2003/26/2019 CMP, serum or plasm a potassium 4.2 mmol/ L 3.5-5. 2 Not Available [facility] ([facility]) [address] [facility], [address], 03/26/2019 10:38:23 03/25/2003/26/2019 CMP, serum or plasm a chloride 99 mmol/ L 96-106 Not Available [facility] ([facility]) [address] [facility], [address], 03/26/2019 10:38:23 03/25/2003/26/2019 CMP, serum or plasm a carbon dioxide, total 19 mmol/ L 20-29 below low normal Not Available [facility] ([facility]) [address] [facility], [address], 03/26/2019 10:38:23 03/25/2003/26/2019 CMP, serum or plasm a calcium 9.7 mg/dL 8.6-10 .2 Not Available [facility] ([facility]) [address] [facility], [address], 03/26/2019 10:38:23 03/25/2003/26/2019 CMP, serum or plasm a protein, total 6.9 g/dL 6.0-8. 5 Not Available [facility] ([facility]) [address] [place], [address], 03/26/2019 10:38:23 03/25/2003/26/2019 CMP, serum or plasm a albumin 4.8 g/dL 3.6-4. 8 Not Available [facility] ([facility]) [address] [place], [address], 03/26/2019 10:38:23 03/25/2003/26/2019 CMP, serum or plasm a globulin, total 2.1 g/dL 1.5-4. 5 Not Available [facility] ([facility]) [address] [place], [address], 03/26/2019 10:38:23 03/25/2003/26/2019 CMP, serum or plasm a A/G ratio 2.3 1.2-2. 2 above high normal Not Available [facility] ([facility]) [address] [facility], [address], 03/26/2019 10:38:23 03/25/2003/26/2019 CMP, serum or plasm a bilirubin, total 0.7 mg/dL 0.0-1. 2 Not Available [facility] ([facility]) [address] [place], [address], 03/26/2019 10:38:23 03/25/2003/26/2019 CMP, serum or plasm a alkaline phosphatase 68 IU/L 39-117 Not Available [facility] [address] [facility] [place], [address], 03/26/2019 10:38:23 03/25/2003/26/2019 CMP, serum or plasm a AST (SGOT) 56 IU/L 0-40 above high normal Not Available [facility] ([facility]) [address] [facility], [address], 03/26/2019 10:38:23 03/25/2003/26/2019 CMP, serum or plasm a ALT (SGPT) 91 IU/L 0-44 above high normal Not Available [facility] ([facility]) [address] [facility] [place], [address], 03/26/2019 10:38:23 03/25/2003/26/2019 CBC WBC 7.5 x10e3 /uL 3.4-10 .8 Not Available [facility] ([facility]) [address] [facility] [place], [address], 03/26/2019 10:38:24 03/25/2003/26/2019 CBC RBC 4.64 x10e6 /uL 4.14-5 .80 Not Available [facility] ([facility]) [address] [facility] [place], [address], 03/26/2019 10:38:24 03/25/2003/26/2019 CBC hemoglobin 14.5 g/dL 13.0-1 7.7 Not Available [facility] ([facility]) [address] [place], [address], 03/26/2019 10:38:24 03/25/20 19 03/26/2019 CBC hematocrit 41.1 % 37.5-5 1.0 Not Available [facility] ([facility] [address] [facility] [place], [address], 03/26/2019 10:38:24 03/25/2003/26/2019 CBC MCV 89 fL 79-97 Not Available [facility] ([facility]) [address] [facility] [place], [address], 03/26/2019 10:38:24 03/25/2003/26/2019 CBC MCH 31.3 pg 26.6-3 3.0 Not Available [facility] ([facility]) [address] [facility], [address], 03/26/2019 10:38:24 03/25/2003/26/2019 CBC MCHC 35.3 g/dL 31.5-3 5.7 Not Available [facility] ([facility]) [address] [facility], [place], [address], 03/26/2019 10:38:24 03/25/2003/26/2019 CBC RDW 13.1 % 12.3-1 5.4 Not Available [facility] ([facility] [address] [facility], [place], [address], 03/26/2019 10:38:24 03/25/2003/26/2019 CBC NRBC LAST MODEL DEPARTMENT SUPERVISOR Not Available [facility] ([facility]) [address] [facility], [place], [address], 03/26/2019 10:38:24 03/25/2003/26/2019 lipid panel , serum cholesterol, total 298 mg/dL 100-19 9 above high normal Not Available [facility] ([facility]) [address] [facility] [place], [address], 03/26/2019 10:38:24 03/25/2003/26/2019 lipid panel , serum triglyceride s 363 mg/dL 0-149 above high normal Not Available [facility] ([facility]) [address] [place], [address], 03/26/2019 10:38:24 03/25/2003/26/2019 lipid panel , serum HDL cholesterol 27 mg/dL >39 below low normal Not Available [facility] ([facility]) [address] [place], [address], 03/26/2019 10:38:24 03/25/2003/26/2019 lipid panel , serum VLDL cholesterol kelle 73 mg/dL 5-40 above high normal Not Available [facility] ([facility]) [address] [place], [address], 03/26/2019 10:38:24 03/25/2003/26/2019 lipid panel , serum LDL cholesterol calc 198 mg/dL 0-99 above high normal Not Available [facility] ([facility]) [address] [place], [address], 03/26/2019 10:38:24 03/25/2003/26/2019 lipid panel , serum comment: Commen t Possi ble Famil ial Hyper farrah stero lemia . FH oswaldo ryan be suspe cted when fasti ng LDL farrah stero l is above 189 mg/dL or non-H DL farrah stero l is above 219 mg/dL . A famil y histo ry of high farrah stero l and heart disea se in 1st degre e relat raymond oswaldo ryan be colle cted. J Clin Lipid ol 2011; 5:133 -140 Not Available [facility] ([facility]) [address] [place], [address], 03/26/2019 10:38:24 03/25/2003/26/2019 micro album in/cr eatin ine, mass ratio , urine creatinine, urine 152.9 mg/dL not estab. Not Available [facility] ([facility]) [address] [place], [address], 03/26/2019 10:38:25 03/25/2003/26/2019 micro album in/cr eatin ine, mass ratio , urine albumin, urine 43.5 ug/mL not estab. Not Available [facility] ([facility]) [address] [place], [address], 03/26/2019 10:38:25 03/25/2003/26/2019 micro album in/cr eatin ine, mass ratio , urine alb/creat ratio 28.4 mg/g_ creat 0.0-30 .0 Lili l: 0.0 - 30.0 Album inuri a: 31.0 - 300.0 Clini kelle album inuri a: >300. 0 Not Available [facility] ([facility]) [address] [place], [address], 03/26/2019 10:38:25 03/25/2003/26/2019 HbA1c (hemo globi n A1c), blood hemoglobin A1C 10.1 % 4.8-5. 6 above high normal Predi abete s: 5.7 - 6.4 Diabe kojo: >6.4 Glyce grecia contr ol for adult s with diabe kojo: <7.0 Not Available [facility] ([facility]) [address] [facility], [place], [address], 03/26/2019 10:38:26 03/25/2003/26/2019 PSA, total , serum or plasm a prostate specific Ag, serum 0.3 NG/mL 0.0-4. 0 Chris ECLIA metho dolog y. Accor ding to the Ameri can Urolo gical Assoc iatio n, Serum PSA shoul d decre ase and remai n at undet ectab le level s after radic al prost atect yfn. The AUA defin es bioch emica l recur rence as an initi al PSA value 0.2 ng/mL or great er follo wed by a subse quent confi rmato ry PSA value 0.2 ng/mL or great er. Value s obtai mary ann with diffe rent assay metho ds or kits canno t be used inter al bacbock . Resul ts canno t be inter prete d as absol tanacross evide nce of the prese nce or absen ce of yaritza bradley . Not Available [facility] ([facility]) [address] [place], [address], 03/26/2019 10:38:26 03/25/20 19 03/26/2019 testo stero ne, free + total , serum testosterone , serum 307 NG/dL 264-91 6 Adult male refer ence inter hailee is based on a popul ation of healt hy nonob morgan males (BMI <30) betwe en 19 and 39 years old. Isabelle coreas et.al . JCEM 2017, 102;1 161-1 173. PMID: 86417 103. Not Available [facility] ([facility]) [address] [place], [address], 03/27/2019 06:10:18 03/25/20 19 03/26/2019 testo stero ne, free + total , serum free testosterone (direct) 2.9 pg/mL 6.6-18 .1 below low normal Not Available [facility] ([facility]) [address] [place], [address], 03/27/2019 06:10:18 04/16/20 19 04/17/2019 testo stero ne, free + total , serum testosterone , serum 457 NG/dL 264-91 6 Adult male refer ence inter hailee is based on a popul ation of healt hy nonob morgan males (BMI <30) betwe en 19 and 39 years old. Isabelle coreas et.al . JCEM 2017, 102;1 161-1 173. PMID: 48098 103. Not Available [facility] ([facility]) [address] [place], [address], 04/18/2019 10:37:03 04/16/20 19 04/18/2019 testo stero ne, free + total , serum free testosterone (direct) 6.0 pg/mL 6.6-18 .1 below low normal Not Available [facility] ([facility]) [address] [facility], [place], [address], 04/18/2019 10:37:03 04/16/2004/17/2019 PSA, total , serum or plasm a prostate specific Ag, serum 1.0 NG/mL 0.0-4. 0 Chris ECLIA metho dolog y. Accor ding to the Ameri can Urolo gical Assoc iatio n, Serum PSA shoul d decre ase and remai n at undet ectab le level s after radic al prost atect yfn. The AUA defin es bioch emica l recur rence as an initi al PSA value 0.2 ng/mL or great er follo wed by a subse quent confi rmato ry PSA value 0.2 ng/mL or great er. Value s obtai mary ann with diffe rent assay metho ds or kits canno t be used inter melendez eably . Resul ts canno t be inter prete d as absol tanacross evide nce of the prese nce or absen ce of yaritza bradley se. Not Available [facility] ([facility]) [address] [facility], [place], [address], 04/18/2019 10:37:04 04/23/2004/24/2019 testo stero ne, free + total , serum testosterone , serum 442 NG/dL 264-91 6 Adult male refer ence inter hailee is based on a popul ation of healt hy nonob morgan males (BMI <30) betwe en 19 and 39 years old. Isabelle coreas, et.al . JCEM 2017, 102;1 161-1 173. PMID: 83052 103. Not Available [facility] ([facility]) [address] [facility], [place], [address], 04/25/2019 10:37:03 04/23/2004/25/2019 testo stero ne, free + total , serum free testosterone (direct) 4.1 pg/mL 6.6-18 .1 below low normal Not Available [facility] ([facility]) [address] [facility], [place], [address], 04/25/2019 10:37:03 05/28/20 19 05/28/2019 HbA1c (hemo globi n A1c), blood HbA1c 9.8 Not Available In-Office Order Internal Use Only DO Not Attach Compendium DO Not Attach Compendium, Do Not Delete/merge, [id number] 05/28/2019 14:44:08 10/03/19 19 08/20/2018 CT, head, w/o contr ast No observ ation record ed. BARCODE Not Available 2018 16:49:06 10/03/19 19 08/20/2018 CT, cervi kelle spine , w/o contr ast No observ ation record ed. BARCODE Not Available 2018 16:49:07 Result Notes None recorded. Problems Name Problem SNOMED Code Status Onset Date Resolution Date Notes Provider Name and Address Organization Details Recorded Time History of cerebrovasc ular accident 101732412 Active 2016 Leonarda Patrick APN ELECTRICIAN JOURNEYMAN WIREMAN-C Attn: Orlando g,[address] [place], [address], [facility] 8 11:43:34 Kidney stone 04261487 Active 2016 Leonarda Patrick APN ELECTRICIAN JOURNEYMAN WIREMAN-C Attn: Orlando g,[address] [place], [address], [place] [facility] 8 11:43:34 Liver enzymes level above reference range 195132129 Active 2017 Leonarda Patrick APN, ELECTRICIAN JOURNEYMAN WIREMAN-C Attn: Accountin g,[address] [place], [address], [facility] 8 11:43:34 Neck pain 13363972 Active 2017 Leonarda Patrick APN ELECTRICIAN JOURNEYMAN WIREMAN-C Attn: [place] g,[address] [place], [address], [place] [facility] 8 11:43:34 Pain in limb 81303510 Active 2013 Leonarda Patrick APN, FNP-C Attn: Krissnhan kimball,[address] [facility], [place], [address], [facility] 8 11:43:34 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 Leonarda Patrick APN, FNP-C Attn: Krissnhan kimball,[address] [facility], [place], [address], [facility] 8 11:43:34 Obstructive sleep apnea syndrome 93866335 Active 2012 has one but does not use it Leonarda Patrick APN, FNP-C Attn: Krissnhan kimball,[address] [place] [address], [address], [facility] 9 10:59:34 Abnormal involuntary movement 321233763 Active 2015 Leonarda Patrick APN, FNP-C Attn: Orlando jigar,[address] [place], [address], [facility] 8 11:43:34 Hypersomnia 39041092 Active 2012 Leonarda Patrick APN, FNP-C Attn: Krissnhan kimball,[address] [facility], [place], [address], [facility] 8 11:43:34 Sinusitis 87403891 Completed 01/02/2017 Leonarda Patrick APN, FNP-C Attn: [place] jigar,[address] [place], [address], [place] [facility] 7 09:53:34 Gastroesoph ageal reflux disease 320191432 Active Leonarda Patrick APN, FNP-C Attn: Orlando jigar,[address] [place], [address], [place] [facility] 8 11:43:34 Hyperlipide mignon 48803610 Active Leonarda Patrick APN, FNP-C Attn: [place] jigar,[address] [facility], [place], [address], [place] [facility] 8 11:43:34 Hypothyroid ism 26211509 Active Leonarda Patrick APN ELECTRICIAN JOURNEYMAN WIREMAN-C Attn: Orlando jigar,[address] [facility], [place], [address], [place] [facility] 8 11:43:34 Acute sinusitis 94816375 Completed 01/02/2017 Leonarda Patrick APN ELECTRICIAN JOURNEYMAN WIREMAN-C Attn: Orlando kimball,[address] [facility], [place], [address], [place] [facility] 7 09:52:52 Mixed anxiety and depressive disorder 525432587 Active Leonarda Patrick APN ELECTRICIAN JOURNEYMAN WIREMAN-C Attn: [place] jigar,[address] [facility], [place], [address], [facility] 8 11:43:34 Sleep apnea 54548632 Active Leonarda Patrick APN ELECTRICIAN JOURNEYMAN WIREMAN-C Attn: [place] kimball,[address] [facility], [place], [address], [facility] 8 11:43:34 Impotence Active Leonarda Patrick APN ELECTRICIAN JOURNEYMAN WIREMAN-C Attn: [place] kimball,[address] [facility], [place], [address], [place] [facility] 8 11:43:34 Disease condition determinati on, uncontrolle d 61124534 Completed 02/13/2019 Leonarda Patrick APN ELECTRICIAN JOURNEYMAN WIREMAN-C Attn: Orlando kimball,[address] [place], [address], [place] [facility] 9 10:59:08 Contact dermatitis 81541574 Completed 01/02/2017 Leonarda Patrick APN ELECTRICIAN JOURNEYMAN WIREMAN-C Attn: [place] kimball,[address] [facility], [place], [address], [place] [facility] 7 09:52:50 Type 2 diabetes mellitus 81132662 Active Leonarda Patrick APN ELECTRICIAN JOURNEYMAN WIREMAN-C Attn: Krissnhan kimball,[address] [facility], [place], [address], [facility] 8 11:43:34 Ingrowing toenail 822544017 Completed 01/02/2017 Leonarda Patrick APN ELECTRICIAN JOURNEYMAN WIREMAN-C Attn: Krissnhan kimball,[address] [facility], [place], [address], [facility] 7 09:53:19 Strain of thoracic region 70929640 Completed 01/02/2017 Leonarda Patrick APN ELECTRICIAN JOURNEYMAN WIREMAN-C Attn: [place] kimball,[address] [place], [address], [facility] 7 09:53:27 Low back pain 981937393 Active Leonarda Patrick APN ELECTRICIAN JOURNEYMAN WIREMAN-C Attn: Orlando kimball,[address] [place], [place], [address] [place] [address] [address], [facility] 8 11:43:34 Eruption [id number] Completed 02/14/2018 Leonarda Patrick APN, FNP-C Attn: Orlando kimball,[address] [place], [address], [facility] 8 11:47:20 Obesity 521192636 Active 2015 Leonarda Patrick APN, FNP-C Attn: [place] kimball,[address] [place], [address], [facility] 8 11:43:34 Problem Notes None recorded. Procedures Surgical History Date Name Laterality Status Provider Name and Address Organization Details Recorded Time 08/20/2012 Other completed Gina Cummins MA [facility] 07/24/2014 10:29:50 Imaging Results Imaging Date Name Status LastModified by [facility] Details LastModified Time 08/20/2018 CT, head, w/o contrast completed BARCODE Information not available 10/03/2018 16:49:06 08/20/2018 CT, cervical spine, w/o contrast completed BARCODE Information not available 10/03/2018 16:49:07 Procedure Notes None recorded. Medical Equipment None Reported. Allergies Allergen ID Allergen Name Allergen Category Reaction Reaction Severity Criticality Documentation Date Start Date Code Code System Note Provider Name and Address Organization Details Recorded Time 362043 lavender extract food hives severe Not available 02/14/2018 85661 67 RxNorm Not Available Not Available Not Available 99674 Product containin g 3-hydroxy -3-methyl glutaryl- coenzyme A reductase inhibitor (product) medicatio n myalgias (muscle pain) moderate Not available 07/09/2015 96826 009 SNOMED Not Available Not Available Not Available 5850 codeine medicatio n Not available Not available Not available 07/24/2014 2670 RxNorm Not Available Not Available Not Available Medications Name Sig Start Date Stop Date Status Note LastModified by Organization Details LastModified Time blood glucose test strips use to check blood glucose daily 2018 active Not Available Not Available Not Avai lable OneTouch Ultra Blue Test Strips Test glucose fasting and up to TID. 2014 active Not Available Not Available Not Avai lable cyclobenz aprine 10 mg tablet Take 1 tablet 3 times a day by oral route as needed. 10/01 completed Not Available Not Available Not Available metformin 500 mg tablet TAKE ONE TABLET BY MOUTH TWICE DAILY 08/08 completed Not Available Not Available Not Available Augmentin 875 mg-125 mg tablet Take 1 tablet every 12 hours by oral route for 7 days. 07/31 completed Not Available Not Available Not Available venlafaxi ne 75 mg tablet TAKE ONE TABLET BY MOUTH THREE TIMES DAILY 04/18 completed pt d/c Not Available Not Available Not Available trazodone 50 mg tablet active pt states he hasn't started taking Not Available Not Available Not Available sildenafi l 50 mg tablet TAKE ONE 30 MINUTES TO FOUR HOURS BEFORE SEXUAL ACTIVITY , NO MORE THAN ONE TABLET PER DAY 04/18 completed Not Available Not Available Not Available azithromy los 250 mg tablet TAKE 2 TABLETS (500 MG) BY ORAL ROUTE ONCE DAILY FOR 1 DAY THEN 1 TABLET (250 MG) BY ORAL ROUTE ONCE DAILY FOR 4 DAYS 05/20 completed Not Available Not Available Not Available pravastat in 40 mg tablet 02/14 completed Not Available Not Available Not Available levetirac etam 500 mg tablet Take 1 tablet every day by oral route for 30 days. active Not Available Not Available No t Available ranitidin e 300 mg tablet TAKE ONE TABLET BY MOUTH ONCE DAILY 12/30 completed Not Available Not Available Not Available hydrocodo ne 5 mg-acetam inophen 325 mg tablet Take 1 tablet every 6 hours by oral route as needed. active Not Available Not Available No t Available ciproflox acin 500 mg tablet Take 1 tablet every 12 hours by oral route for 5 days. 05/20 completed Not Available Not Available Not Available aspirin 81 mg tablet,de layed release Take 1 tablet every day by oral route. 02/13 completed Not Available Not Available Not Available triamcino lone acetonide 0.1 % topical cream APPLY A THIN LAYER TO THE AFFECTED AREA(S) BY TOPICAL ROUTE 2 TIMES PER DAY active Not Available Not Available No t Available acyclovir 800 mg tablet TAKE 1 TABLET BY MOUTH FIVE TIMES DAILY FOR 10 DAYS active Not Available Not Available No t Available glimepiri de 2 mg tablet TAKE TWO TABLETS BY MOUTH TWICE A DAY 2018 active Not Available Not Available Not Avai lable lorazepam 0.5 mg tablet Take 1 tablet as needed by oral route at bedtime. active Not Available Not Available No t Available tamsulosi n 0.4 mg capsule Take 1 capsule every day by oral route. 10/01 completed Not Available Not Available Not Available OneTouch Ultra Test strips USE ONE STRIP TO CHECK GLUCOSE ONCE DAILY 2016 active Not Available Not Available Not Avai lable venlafaxi ne 37.5 mg tablet Take 1 tablet twice a day by oral route. active Not Available Not Available No t Available metformin 1,000 mg tablet Take 1000 mg by oral route. 05/20 completed Not Available Not Available Not Available levothyro xine 125 mcg tablet TAKE ONE TABLET BY MOUTH EVERY DAY active Not Available Not Available No t Available aspirin 81 mg chewable tablet Chew 1 tablet every day by oral route. 02/14 completed Not Available Not Available Not Available allopurin ol 300 mg tablet active Not Available Not Available Not Available pravastat in 20 mg tablet 02/13 completed Not Available Not Available Not Available diclofena c sodium 50 mg tablet,de layed release TAKE ONE TABLET BY MOUTH TWICE A DAY NEEDED active Not Available Not Available No t Available lorazepam 1 mg tablet TAKE ONE TABLET BY MOUTH AT BEDTIME NEEDED active Not Available Not Available No t Available Viagra 100 mg tablet Take 1 tablet every day by oral route as needed. 2015 active Not Available Not Available Not Avai lable Ecotrin 325 mg tablet,en teric coated Take 325 mg by oral route. 10/01 completed Not Available Not Available Not Available polyethyl rock glycol 3350 17 gram/dose oral powder active Not Available Not Available Not Available methylpre dnisolone 4 mg tablets in a dose pack Take by oral route as directed . 12/30 completed Not Available Not Available Not Available levothyro xine 112 mcg tablet TAKE ONE TABLET BY MOUTH EVERY DAY active Not Available Not Available No t Available Ventolin HFA 90 mcg/actua tion aerosol inhaler Inhale 2 puffs every 4 hours by inhalati on route as needed. 02/14 completed Not Available Not Available Not Available Zetia 10 mg tablet Take 1 tablet(s ) EVERY NIGHT by oral route. 12/30 completed Not Available Not Available Not Available bupropion HCl XL 150 mg 24 hr tablet, extended release Take 1 tablet every day by oral route. 02/13 completed Not Available Not Available Not Available omega-3 acid ethyl esters 1 gram capsule Take 1000 mg by oral route. 10/01 completed Not Available Not Available Not Available fenofibra te 160 mg tablet Take 1 tablet every day by oral route. 05/07 completed Not Available Not Available Not Available Vitamin D 05/20 completed Not Available Not Available Not Available red yeast rice 600 mg capsule Take 600 mg by oral route. 05/20 completed Not Available Not Available Not Available cholecalc iferol (vitamin D3) 25 mcg (1,000 unit) tablet 04/08 completed Not Available Not Available Not Available Januvia 50 mg tablet TAKE 1 TABLET BY MOUTH ONCE DAILY 05/20 completed changed to 100mg Not Available Not Available Not Available Januvia 100 mg tablet TAKE ONE TABLET BY MOUTH EVERY DAY active Not Available Not Available No t Available fenofibra te 120 mg tablet Take 1 tablet every day by oral route. 01/02 completed Not Available Not Available Not Available fenofibra te 54 mg tablet TAKE ONE TABLET BY MOUTH ONCE DAILY AT DINNER 02/14 completed Not Available Not Available Not Available Solu-Medr ol (PF) 125 mg/2 mL solution for injection Take 93 mg every day by injectio n route for 1 day. 2014 active Not Available Not Available Not Avai lable OneTouch Ultra Blue Test Strip USE 1 STRIP TO CHECK GLUCOSE ONCE DAILY 2018 active Not Available Not Available Not Avai lable Vitals Date Recorded Body height Body mass index (BMI) Body weight Oxygen saturation Oxygen saturation in Arterial blood by Pulse oximetry Heart rate Respiratory rate Body temperature Systolic blood pressure Diastolic blood pressure Provider Name and Address Organization Details Last Updated DateTime 9 165.1 cm 32 kg/m2 60266.7 9 g 95 % 95 % 89 /min 16 /min 97.8 [degF] 118 mm[Hg] 74 mm[Hg] Leydi Silva MA [facility] 9 16:07:26 Date Recorded Body height Body mass index (BMI) Body weight Oxygen saturation Oxygen saturation in Arterial blood by Pulse oximetry Heart rate Respiratory rate Body temperature Systolic blood pressure Diastolic blood pressure Provider Name and Address Organization Details Last Updated DateTime 9 165.1 cm 32 kg/m2 83943.4 9 g 95 % 95 % 90 /min 16 /min 97.2 [degF] 132 mm[Hg] 84 mm[Hg] Leydi Silva MA [facility] 9 10:41:55 Date Recorded Body height Body mass index (BMI) Body weight Oxygen saturation Oxygen saturation in Arterial blood by Pulse oximetry Heart rate Respiratory rate Body temperature Systolic blood pressure Diastolic blood pressure Provider Name and Address Organization Details Last Updated DateTime 9 165.1 cm 32.1 kg/m2 23800.3 3 g 96 % 96 % 90 /min 16 /min 97.4 [degF] 138 mm[Hg] 84 mm[Hg] Leydi Silva MA [facility] 9 12:22:50 Date Recorded Body height Body mass index (BMI) Body weight Oxygen saturation Oxygen saturation in Arterial blood by Pulse oximetry Heart rate Respiratory rate Body temperature Systolic blood pressure Diastolic blood pressure Provider Name and Address Organization Details Last Updated DateTime 9 165.1 cm 31.5 kg/m2 41125.4 1 g 95 % 95 % 88 /min 16 /min 98.6 [degF] 118 mm[Hg] 74 mm[Hg] Leydi Silva MA [facility] 9 14:39:07 Date Recorded Body height Body mass index (BMI) Body weight Oxygen saturation Oxygen saturation in Arterial blood by Pulse oximetry Heart rate Respiratory rate Body temperature Systolic blood pressure Diastolic blood pressure Provider Name and Address Organization Details Last Updated DateTime 9 165.1 cm 31.7 kg/m2 61994.9 5 g 98 % 98 % 87 /min 16 /min 96.5 [degF] 128 mm[Hg] 82 mm[Hg] Leydi Silva MA [facility] 9 14:38:10 Social History Question Answer Notes LastModified by Organizat ion Details LastModified Time Tobacco Smoking Status Former Smoker Gina Cummins MA [facility], [facility] 07/24/2014 10:29:50 Do You Have An Advance Directive? No Information not available 10/01/2018 What Is Your Level Of Alcohol Consumption? Occasional [email or web address] Information not available 07/24/2014 What Is Your Level Of Caffeine Consumption? Moderate Diet Soda Information not available 10/01/2018 How Much Tobacco Do You Chew? None Information not available 01/02/2017 What Type Of Diet Are You Following? DIABETIC [email or web address] Information not available 07/24/2014 Which Illicit Or Recreational Drugs Have You Used? None Information not available 01/02/2017 Do You Or Have You Ever Used E-cigarettes Or Vape? Never Used Electronic Cigarettes Information not available 04/08/2019 What Is Your Occupation? [employer]SI Information not available 10/01/2018 Are There Any Guns Present In Your Home? No Information not available 10/01/2018 Hard Of Hearing Or Deaf In One Or Both Ears? No Information not available 01/21/2016 Legally Blind In One Or Both Eyes? No Information not available 01/21/2016 Marital Status Informati on not available 01/21/2016 What Was The Date Of Your Most Recent Tobacco Screening? 02/13/2019 Information not available 03/13/2019 Performs Monthly Self-breast Exam? No Information not available 01/21/2016 Seat Belts Used Routinely Yes Information not available 01/21/2016 Smoke Alarm In Home Yes Information not available 01/21/2016 Do You Or Have You Ever Used Smokeless Tobacco? Never Used Smokeless Tobacco Information not available 04/08/2019 How Much Tobacco Do You Smoke? No Information not available 02/14/2018 General Stress Level Medium Information not available 10/01/2018 Do You Use Sunscreen Routinely? No Information not available 01/21/2016 Sex: Unknown Functional Status Question Answer Note LastModified by Organization D etails LastModified Time What is your exercise level? None [email or web address] Information not available 07/24/2014 Mental Status None recorded. Family History Relationship Description Onset Age of this Age Resolved Age Notes LastModified by Organization Details LastModified Time Mother Family history of cancer of colon Not available 2015 11:38:08 Mother Hyperlipidem ia Not available 2015 11:38:08 Father Dementia Not available 04/03/2016 11:38:09 Brother Hyperlipidem ia Not available 2015 11:38:09 Medical History Condition Response Coronary Artery Disease N Other N Atrial Fibrillation N High Blood Pressure N Thyroid Problems Y Kidney or Bladder Problems N Depression Y COPD N Blood Clots N GI Problems N Skin Problems N Anemia N Heart Attack (ND) N Diabetes Y Anxiety Disorder Y Muscle, Joint, or Bone Problems N Seizures/Epilepsy N Acid Reflux (GERD) Y Cancer N Stroke Y Allergies Y Asthma N High Cholesterol Y Hepatitis N Liver Disease N Headaches N Osteoporosis N Heart Failure N Immunizations Vaccine Type Date Status Note Provider Nam e and Address Organization Details Recorded Time Influenza, split virus, quadrivalent, preservative 6 completed Not Available [facility] 09/06/2019 02:51:05 pneumococcal polysaccharide PPV23 6 completed Not Available [facility] 09/06/2019 02:47:19 Influenza, split virus, quadrivalent, preservative 7 completed Not Available [facility] 09/06/2019 02:33:59 Influenza, split virus, quadrivalent, preservative 8 completed Not Available [facility] 09/06/2019 02:46:05 Influenza, split virus, quadrivalent, preservative 9 completed Not Available [facility] 09/06/2019 02:38:13 Influenza, split virus, quadrivalent, preservative 5 completed Not Available [facility] 09/06/2019 02:32:11 Tdap 5 completed Not Available [facility] 09/06/2019 02:30:18 Past Encounters Encounter ID Performer Location Encounter Start Date Encounter Closed Date Diagnosis/Indication Diagnosis SNOMED-CT Code Diagnosis ICD10 Code Diagnosis Note [id number] SHEILA Villaseñor (Adult Med) [address] [place] [address] 07/24/2014 09:57:53 07/24/2014 11:19:48 Gastroesophageal reflux disease [id number] Stable with diet and ranitidine . Hyperlipidemia 46669963 Not on statin due to leg cramping.. .Has tried simvastati n, pravastati n, and crestor. Not for sure on the crestor, but believes all meds have caused muscle aches. Patient to continue fish oil and diet mods. Labs today. Hypothyroidism 23234410 Stable. Labs today. Acute sinusitis 72376937 Ok to continue netti pot Mixed anxi ety and depressive disorder 841126955 Stable with meds. Sleep apnea 04782317 Con tinue CPAP machine. Fill humidifier prior to sleep each night. Call machine company to have them evaluate machine. Impotence 346038045 Want s to try herbals larginine or horny goat weed. Viagra 100 mg works but cost too expensive. Have sample x 3 of Cialis 20 mg for patient today. Consider PAP for Viagra or Cialis. Disease co ndition determination, uncontrolled 23783562 Patient to continue working on diet and lifestyle changes with fasting morning glucose 70-100 goal. [id number] Yanna PRADHAN (Adult Med) [address] [place] [address] 10/23/2014 10:48:39 10/23/2014 12:52:32 Type 2 diabetes mellitus 71003253 Has not been able to level blood sugars. Feeling stressed after not being able to eat the same things all the time. Continue meds. No glucose log today. Hyperlipidemia 74244463 Patient to continue fish oil and diet mods. Labs today. Hypothyroidism 79499174 Stable. Labs today. Filling #30 of 125 mcg due to patient will be out this weekend before lab results returned. I don't want patient to be out of meds, but he is aware dose may change after lab results available. Mixed anxi ety and depressive disorder 288970605 Patient to increase medication to 75 mg TID and to keep the same dose instead of titrating day to day. Using lorazepam 1 mg QD to BID. Patient declines counseling and psychiatri st. Will check thyroid level to see if that may be alternate cause. [id number] Yanna Ho (Adult Med) [address] [place] [address] 01/29/2015 10:55:16 01/29/2015 11:27:13 Type 2 diabetes mellitus 58335379 No glucose log today. Continue glimepirid e 1 in the am and 2 tab in the pm. Keep log and bring to next apt. He did not check fasting glucose today, but we will get fasting labs. Hyperlipidemia 17255284 Patient to continue fish oil and diet mods. Labs today. Hypothyroidism 82833097 Stable. Labs today. Currently on levothyrox ine 125 mcg daily. Refill after labs available. Mixed anxi ety and depressive disorder 327045463 Continue current meds. Patient doses per self, 1-3 tabs daily of venlafaxin e. Encouraged routine dosing. Also, using lorazepam 1 mg QD to BID. [id number] Mackenzie Ho (Adult Med) [address] [place] [address] 02/16/2015 10:27:23 02/16/2015 13:05:27 Contact dermatitis 59462813 Likely poison candi exposure. Use antihistam ine daily. Medrol dose nano and solumedrol shot IM today. Patient aware to check glucose closely. [id number] Yanna Ho (Adult Med) [address] [place] [address] 07/06/2015 11:22:29 07/06/2015 12:57:25 Ingrowing toenail [id number] L60.0 Left great toe. Referring to podiatry. Active or passive immunization 402252354 Z23 Tdap and flu shots today. Hypothyroidism 60521321 E03.1 Labs today. Continue levothyrox ine to 112 mcg daily. Hyperlipidemia 63741592 E78.2 Patient to continue fish oil and diet mods. Labs today. Mixed anxi ety and depressive disorder 272407925 F34.1 Stable. Continue current meds. Patient doses per self, 1-3 tabs daily of venlafaxin e. Encouraged routine dosing. Also, using lorazepam 1 mg QD to BID. Type 2 kinga betes mellitus 82562882 E11.21 Stable on meds. Labs today. Gastroesop hageal reflux disease 976236168 K21.9 Stable with diet and ranitidine . [id number] Yanna Ho (Adult Med) [address] [place] [address] 08/09/2015 14:28:40 08/11/2015 11:18:33 Strain of thoracic region 84456994 S29.012A Continue heat pad. Use cyclobenza birgit 10 mg TID prn. Codeine allergy, so patient will check home meds to see which pain pill is ok for him to take and call office for script. [id number] Yanna Ho (Adult Med) [address] [place] [address] 12/31/2015 10:55:51 01/03/2016 09:57:46 Hyperlipidemia 55248012 E78.2 Patient to continue fish oil and diet mods. Has statin allergy. Mixed anxi ety and depressive disorder 881485450 F34.1 Stable. Continue current meds. Patient doses per self, 1-3 tabs daily of venlafaxin e. Encouraged routine dosing. Also, using lorazepam 1 mg QD to BID. Type 2 kinga betes mellitus 51657965 E11.21 DM- Glucose goal of 100 fasting morning. A1C last 10/2015 7.6. Goal < 7. Labs due. Hypothyroidism 53343797 E03.1 Continue levothyrox ine to 112 mcg daily. Due for Labs in January 2016. Impotence 087345250 N52. 9 Viagra 100 mg prn, #12 with 2 REfills. Script printed and given to patient to take with him. [id number] SRIDEVI Dolan (Adult Med) [address] [place] [address] 01/21/2016 10:11:13 01/24/2016 16:00:40 Low back pain 585265258 M54.5 Eruption 307200821 R21 [id number] Leonarda Patrick APN, DIEGO Ho (Adult Med) [address] [facility] [place] [address] 04/03/2016 11:27:02 04/04/2016 11:47:28 Hyperlipidemia 31629227 E78.5 Type 2 kinga betes mellitus 60867234 E11.9 Mixed anxi ety and depressive disorder 750671819 F41.8 Hypothyroidism 00919606 E03.9 Adult heal th examination 609152399 Z00.01 History of cerebrovascular accident 080033507 Z86.73 Continue with OTC Aspirin. [id number] Leonarda Patrick APN, DIEGO Ho (Adult Med) [address] [place] [address] 07/04/2016 08:53:57 07/04/2016 12:04:26 Mixed anxiety and depressive disorder 296770477 F41.8 Hypothyroidism 24480664 E03.9 Currently on 112 mcg, check blood before refill. Type 2 kinga betes mellitus 33946139 E11.9 Taking glimepirid e 2 mg, one in am and two in PM; Hyperlipidemia 33821428 E78.5 Taking fish oil OTC and daily ASA. Administra tion of influenza vaccine 95844764 Z23 Administra tion of pneumococcal vaccine 10167765 Z23 Obesity 462900270 E66.9 [id number] Leonarda Patrick APN, [facility]IE[place] Ho (Adult Med) [address] [facility] [place] [address] 10/04/2016 09:10:46 10/04/2016 11:31:06 Gastroesophageal reflux disease 533402007 K21.9 Has been off Nexium over a year, no issues now. Screening for disorder 956666304 Z13.9 Type 2 kinga betes mellitus 55777362 E11.9 Taking glimepirid e 2 mg, one in am and two in PM; metformin 500 BID; check a1c 3 months Hyperlipidemia 68614761 E78.5 Taking fish oil OTC and daily ASA. Increase fenofibrat e. Hypothyroidism 57405615 E03.9 Currently on 112 mcg Screening for malignant neoplasm of prostate 671966143 Z12.5 Impotence 981512719 N52. 9 [id number] Leonarda Patrick APN, DIEGO Ho (Adult Med) [address] [place] [address] 01/02/2017 09:24:02 01/02/2017 11:52:44 Type 2 diabetes mellitus 88292287 E11.9 Taking glimepirid e 2 mg, one in am and two in PM increase to two in am as well; metformin 500 BID; check a1c 3 months Hyperlipidemia 46528996 E78.5 Taking fish oil OTC and daily ASA. Increase fenofibrat e to 160 mg Hypothyroidism 44985058 E03.9 Currently on levothyrox ine 112 mcg Gastroesop hageal reflux disease 417467230 K21.9 Has been off Nexium over a year, no issues now. Impotence 070665432 N52. 9 Cont with sildenafil 50 mg Obesity 068577922 E66.9 advised 1500 calorie low fat, low cholestero l, low carb diet, regular exercise and weight reduction. Mixed anxi ety and depressive disorder 045388896 F41.8 Taking venlafaxin e 75 mg TID; Lorazepam 1 mg tab, 1-2 tabs as needed; has been on since 2012 at least. [id number] Leonarda Patrick APN, DIE[place] Ho (Adult Med) [address] [place] [address] 05/07/2017 09:37:56 05/10/2017 16:23:10 Mixed anxiety and depressive disorder 615325267 F41.8 Taking venlafaxin e 75 mg TID; Lorazepam 1 mg tab, 1-2 tabs as needed; has been on since 2012 at least. Gastroesop hageal reflux disease 473874340 K21.9 Has been off Nexium over a year, no issues now. Hypothyroidism 93878619 E03.9 cont levothyrox ine 112 mcg Hyperlipidemia 24177354 E78.5 Taking fish oil OTC and daily ASA. Increase fenofibrat e to 160 mg- pt cannot afford but is willing to cont with lower dose, refill fenofibrat e 54 mg PO qPM Administra tion of influenza vaccine 77452017 Z23 Type 2 kinga betes mellitus 26086810 E11.9 Taking glimepirid e 2 mg, one in am and two in PM increase to two in am as well; metformin 500 BID increasing to 1000 mg bid; check a1c 3 months Obesity 046492682 E66.9 advised 1500 calorie low fat, low cholestero l, low carb diet, regular exercise and weight reduction. Family his tory of aneurysm of artery 178619737 Z82.49 Kidney stone 11153916 N2 0.0 seeing urologist, will seek pain med if passing stone, dwp unable to refill here [id number] Leonarda Patrick APN, [employer] [facility] (Adult Med) [address] [place] [address] 08/08/2017 09:43:50 08/10/2017 09:07:04 Gastroesophageal reflux disease 034265610 K21.9 Has been off Nexium over a year, no issues now. Mixed anxi ety and depressive disorder 029125733 F41.8 Taking venlafaxin e 75 mg TID; Lorazepam 1 mg tab, 1-2 tabs as needed; has been on since 2012 at least. Type 2 kinga betes mellitus 44489044 E11.9 a1c elevated, stopped metformin due to GI and kidney concerns; start Januvia 50 mg qd, Hyperlipidemia 48201655 E78.5 Taking fish oil OTC and daily ASA. Increase fenofibrat e to 160 mg- pt cannot afford but is willing to cont with lower dose, cont fenofibrat e 54 mg PO qPM Obesity 995573698 E66.9 advised low fat, low cholestero l, low carb diet, regular exercise and weight reduction. Hypothyroidism 15823643 E03.9 cont levothyrox ine 112 mcg Low back pain 577126015 M54.5 dwp exercises, prevention of injury History of cerebrovascular accident 141072590 Z86.73 dwp hx of stroke and family hx of heart attack as well as high cholestero l and he agrees to establish with cardio given his hx and risk factors. Kidney stone 21892313 N2 0.0 seeing urologist, will seek pain med if passing stone, dwp unable to refill here; Pt requesting trial of Flomax, has used before. [id number] Leonarda Patrick APN, FNP-C [facility] (Adult Med) [address] [place] [address] 08/21/2017 15:45:07 08/23/2017 11:32:57 Cough 67519948 R05 cough, fever, pleuritic chest pain, dyspnea, and sputum production ; dwp to obtain chest xray soon to r/o causes; may need abx pending resultsHas used inhaler in past with previous bronchitis , will refill for prn use. Leonarda Patrick APN, FNP-C [facility] (Adult Med) [address] [place] [address] 11/08/2017 10:52:25 11/09/2017 12:28:52 Type 2 diabetes mellitus 06873423 E11.9 a1c elevated but did go down from 8.2 to 7.7, stopped metformin due to GI and kidney concerns;c ont Januvia 50 mg qdglimepir ramirez 2 mg 2 tabs BIDDoes not want to add any more medication s, wants to work on diet. Gastroesop hageal reflux disease 449723280 K21.9 Has been off Nexium over a year, no issues now. Mixed anxi ety and depressive disorder 448993540 F41.8 Taking venlafaxin e 75 mg TID; Lorazepam 1 mg tab, 1-2 tabs as needed; has been on since 2012 at least. Hyperlipidemia 99490187 E78.5 Taking fish oil OTC and daily ASA. Increase fenofibrat e to 160 mg- pt cannot afford but is willing to cont with lower dose, cont fenofibrat e 54 mg PO qPM; cardiologi st added pravastati n and ldl went down to 168. Obesity 202412826 E66.9 advised low fat, low cholestero l, low carb diet, regular exercise and weight reduction. Hypothyroidism 62304978 E03.9 cont levothyrox ine 112 mcg Low back pain 725393745 M54.5 dwp exercises, prevention of injury History of cerebrovascular accident 281189471 Z86.73 dwp hx of stroke and family hx of heart attack as well as high cholestero l and he agrees to establish with cardio given his hx and risk factors. Liver enzy mes level above reference range 631347141 R74.8 monitor LFT Impotence 652198366 N52. 9 Cont with sildenafil 50 mg Long-term drug therapy 359186675 Z79.333 [id number] Leonarda Patrick APN, [facility] (Adult [facility]) [address] [place] [address] 02/14/2018 11:19:48 02/15/2018 15:06:22 Liver enzymes level above reference range 095668758 R74.8 hx of fatty liver, had biopsy, monitor LFT, still elevated, dwp reducing lorazepam Mixed anxi ety and depressive disorder 121746735 F41.8 Taking venlafaxin e 75 mg TID;Loraze richie 1 mg tab, 1-2 tabs as needed; has been on since 2012 at least.Has cut his venlafaxin e down and is only taking 1 pill cut in half bid;dwp to wean down dose of lorazepam- pt willing and would like to wean off but not sure if he feels he can. Gastroesop hageal reflux disease 577803075 K21.9 Has been off Nexium over a year, no issues now. Hypothyroidism 18963942 E03.9 cont levothyrox ine 112 mcg Type 2 kinga betes mellitus 50299423 E11.9 a1c elevated, hx: 8.2, 7.7, now back up to 8.4stopped metformin due to GI and kidney concerns;c ont Januvia increasing to 100 mg qdglimepir ramirez 2 mg 2 tabs BIDDoes not want to add any more medication s, wants to work on diet.eye exam October 2017 Obesity 882935896 E66.9 advised low fat, low cholestero l, low carb diet, regular exercise and weight reduction. Hyperlipidemia 58183035 E78.5 Taking daily ASA. Pt stopped fenofibrat e and fish oil. cardiologi st added pravastati n 20 mg [id number] Leonarda Patrick APN, [facility] (Adult Med) [address] [place] [address] 04/18/2018 10:24:48 04/18/2018 14:10:36 Elevated blood-pressure reading without diagnosis of hypertension 629474144 R03.0 Bp elevated today, likely due to neck pain/stres sdwp to monitor for any increase as well as reduce sodium intake Neck pain 67422752 M54.2 chronic neck pain d/t scoliosis; will rx muscle relaxer and NSAID for short use Traveler's diarrhea 1184 0006 A04.1 pt going on trip out of country to [facility] send rxdwp precaution s and when to use rx, also to buy OTC pepto pills to start prior to departure Foreign tr [employer] [id number] Z41.8 will rx z-pack in case of infection while traveling, dwp when to use [id number] Leonarda Patrick APN, ELECTRICIAN JOURNEYMAN WIREMAN-C [facility] (Adult Med) [address] [place] [address] 05/20/2018 11:27:00 05/24/2018 14:50:23 Administration of influenza vaccine 70673213 Z23 cdc handout provided Type 2 kinga betes mellitus 23475948 E11.9 a1c elevated, hx: 8.2, 7.7, now back up to 10.3stoppe d metformin due to GI and kidney concerns;c ont Januvia increasing to 100 mg qd- pt had not been taking until recently-s ent to [place] d/t costglimep iride 2 mg 2 tabs BIDDoes not want to add any more medication s, wants to work on diet.eye exam October 2017 Mixed anxi ety and depressive disorder 596477022 F41.8 was taking venlafaxin e 75 mg TID; lorazepam 1 mg tab, 1-2 tabs as needed; has been on since 2012 at least. Has cut his venlafaxin e down and is only taking 1 pill cut in half bid;dwp to wean down dose of lorazepam- pt willing and would like to wean off but not sure if he feels he can. Hypothyroidism 29263558 E03.9 cont levothyrox ine 112 mcg Gastroesop hageal reflux disease 148519634 K21.9 Has been off Nexium over a year, no issues now. Obesity 137032752 E66.9 advised low fat, low cholestero l, low carb diet, regular exercise and weight reduction. Hyperlipidemia 55783707 E78.5 Taking daily ASA. Pt stopped fenofibrat e and fish oil. cardiologi st added pravastati n 20 mg but cannot tolerate statins, too much pain in legs Neck pain 03615026 M54.2 chronic neck pain d/t scoliosis; will rx muscle relaxer and NSAID for short use Low back pain 716598202 M54.5 dwp exercises, prevention of injury Liver enzy mes level above reference range 703357632 R74.8 hx of fatty liver, had biopsy, monitor LFT, still elevated, dwp reducing lorazepam [id number] Leonarda Patrick APN, ELECTRICIAN JOURNEY[employer] W[employer]MAN-C [facility] ([facility]ult [facility]) [address] [place] [address] 10/01/2018 14:41:02 10/02/2018 09:17:02 Mixed anxiety and depressive disorder 828008522 F41.8 was taking venlafaxin e 75 mg TID; lorazepam 1 mg tab, 1-2 tabs as needed; has been on since 2012 at least, stopped venlafaxin e and wants to increase lorazepam, dwp to start wellbutrin xl 150 mgdwp r/b/se including increased risk of suicide, informed pt that I will not be increasing benzo and if he needs increase then will need to see psychiatry Type 2 kinga betes mellitus 97532628 E11.9 a1c elevated, 9.4stopped metformin due to GI and kidney concerns;c ont Januvia increasing to 100 mg qd- pt had not been taking until recently-s ent to [place] d/t costglimep iride 2 mg 2 tabs BIDDoes not want to add any more medication s, wants to work on diet. DOES NOT WANT INSULINeye exam October 2017, dwp non compliance . Hypothyroidism 41096207 E03.9 tsh elevated, increasing levothyrox ine 125 mcg Gastroesop hageal reflux disease 924232072 K21.9 Has been off Nexium over a year, no issues now. Obesity 852414348 E66.9 advised low fat, low cholestero l, low carb diet, regular exercise and weight reduction. Hyperlipidemia 15135437 E78.5 Taking daily ASA. Pt stopped fenofibrat e and fish oil. cardiologi st added pravastati n 20 mg but cannot tolerate statins, too much pain in legs [id number] Leonarda Patrick APN, [facility] ([facility]ult [facility]) [address] [place] [address] 10/28/2018 15:28:55 10/29/2018 09:30:28 Mixed anxiety and depressive disorder 052111135 F41.8 was taking venlafaxin e 75 mg TID; lorazepam 1 mg tab, 1-2 tabs as needed; has been on since 2012 at least, stopped venlafaxin e and wants to increase lorazepam, dwp to start wellbutrin xl 150 mgdwp r/b/se including increased risk of suicide, informed pt that I will not be increasing benzo and if he needs increase then will need to see psychiatry [id number] Leonarda Patrick APN, [facility] ([facility]ult [facility]) [address] [place] [address] 02/13/2019 10:27:06 02/14/2019 08:52:14 Mixed anxiety and depressive disorder 963764708 F41.8 has been on venlafaxin e and wellbutrin ; lorazepam 1 mg tab, 1-2 tabs as needed;dwp need to wean off but pt refuses;dw p r/b/se including increased risk of suicide, informed pt that I will not be increasing benzo and if he needs increase then will need to see psychiatry Type 2 kinga betes mellitus 91175706 E11.9 a1c last was 9.4stopped metformin due to GI and kidney concerns;c ont Januvia increasing to 100 mg qd- pt had not been taking until recently-s ent to [place] d/t costglimep iride 2 mg 2 tabs BIDDoes not want to add any more medication s, wants to work on diet. DOES NOT WANT INSULINeye exam October 2017,dwp non compliance . needs labs Hyperlipidemia 39171933 E78.5 no longer taking anything for cholestero l, refuses Hypothyroidism 07461971 E03.9 tsh elevated, increasing levothyrox ine 125 mcg Gastroesop hageal reflux disease 315278006 K21.9 Has been off Nexium, no issues now. Obesity 729287770 E66.9 advised low fat, low cholestero l, low carb diet, regular exercise and weight reduction. Screening for malignant neoplasm of prostate 380256004 Z12.5 Sleep apnea 24649727 G47 .30 has sleep apnea, refuses to wear cpap [id number] Leonarda Patrick APN, [facility] ([facility]) [address] [place] [address] 04/08/2019 12:11:10 04/09/2019 10:56:05 Mixed anxiety and depressive disorder 278937274 F41.8 has been on venlafaxin e and wellbutrin and then stopped on own ; lorazepam 1 mg tab, 1-2 tabs as needed; dwp need to wean off but pt refuses; Pt would like to resume venlafaxin e, will start with 37.5 1 for 4-7 days then increase to bid dosing, dwp r/b/se including increased risk of suicide, informed pt that I will not be increasing benzo and if he needs increase then will need to see psychiatry Mood disorder 60727381 F 39 dwp to repeat testostero ne labs x2 and pendning results will refer back to urology Screening for malignant neoplasm of prostate 853920416 Z12.5 [id number] Leonarda Patrick APN, [facility] ([facility]ult [facility]) [address] [place] [address] 05/28/2019 14:23:40 05/29/2019 09:31:17 Mixed anxiety and depressive disorder 079253410 F41.8 improved, cont venlafaxin e 37.5 bid dwp r/b/se including increased risk of suicide,in formed pt that I will not be increasing benzo and if he needs increase then will need to see psychiatry , last refill was #30, weaning down: #25, #20, #15, #10, #5 Administra tion of influenza vaccine 47979905 Z23 cdc handout provided Type 2 kinga betes mellitus 82753449 E11.9 a1c last was 10.1 in March, today 9.8stopped metformin due to GI and kidney concerns;c ont Januvia increasing to 100 mg qd- pt had not been taking until recently-s ent to [place] d/t costglimep iride 2 mg 2 tabs BIDDoes not want to add any more medication s, wants to work on diet. DOES NOT WANT INSULINeye exam October 2017,dwp non compliance . needs labs Hyperlipidemia 31681527 E78.5 no longer taking anything for cholestero l, refuses Hypothyroidism 95633574 E03.9 cont levothyrox ine 125 mcg Gastroesop hageal reflux disease 771330382 K21.9 Has been off Nexium, no issues now. Obesity 445191642 E66.9 advised low fat, low cholestero l, low carb diet, regular exercise and weight reduction. Sleep apnea 81979714 G47 .30 has sleep apnea, refuses to wear cpap [id number] Leonarda Patrick APN, ELECTRICIAN JOURNEY[employer] W[employer]MAN-C [facility] (Adult [facility]) [address] [place] [address] 06/19/2019 14:26:28 06/19/2019 15:08:41 Herpes zoster 3749660 B02.9 started 2 days ago with rash at back of neck on left side and then went to chest area; now has numerous vesicles to left C4-5 dermatome, anterior and posteriorl y on left side, dwp care/preca utions, will also rx antiviral Health Concerns Section Related Observation LastModified by Organization Detai ls LastModified Time None Recorded Concern Status LastModified by Organization Details LastModified Time None Recorded Advance Directives Directive N: Payers Encounter Date Sequence Insurance Name Policy Number Policy Collier Covered Member ID Collier Member ID Guarantor Name 10/28/2018 1 [place] Frederick Black Linden [id number] Frederick Linden 10/28/2018 2 [place] [id number] Frederick Black Linden [id number] Frederick Linden 02/13/2019 2 [place] [id number] Frederick Black Linden [id number] Frederick Linden 02/13/2019 1 [place] Frederick Black Linden [id number] Frederick Linden 04/08/2019 2 [place] [id number] Frederick Geey [id number] Frederick Linden 04/08/2019 1 [place] Frederick Black [place]en [id number] Frederick Linden 05/28/2019 2 [place] [facility] [id number] Frederick Cheatham [id number] Frederick Cheatham 05/28/2019 1 [place] Frederick Cheatham [id number] Frederick Cheatham 06/19/2019 2 [facility] [facility] [id number] Frederick Cheatham [id number] 21 Frederick Cheatham 06/19/2019 1 [place] Frederick Cheatham [id number] Frederick Cheatham Notes Date Note Type Note Provider Name and Address Organization Details Recorded Time 9 text/html Anxiety/DepressionReported bypatient.Quality:symptoms improved Severity:denies suicidal ideations; able to maintain relationships;interference with sleep(at beg when starting but now is ok) Context:major life stressors Associated Symptoms:denies homicidal ideations; no visual/auditory hallucinations; no delusions; no shortness of breath; mood good; no anxiety; no crying spells; no panic; no isolation; sleeping well; appetite good; energy good; no apathy; maintaining functionality Leonarda Patrick APN, ELECTRICIAN JOURNEYMAN WIREMAN-C Attn: Accounting,[address] [place], [address], [facility] 10/28/2018 23:56:42 9 text/html Anxiety/DepressionReported bypatient.Quality:symptoms improved Severity:denies suicidal ideations; able to maintain relationships;interference with sleep(some nights does not fall asleep till 6am, not wearing his cpap unless on a trip and he doesn't want to snore and bother people) Context:major life stressors Associated Symptoms:denies homicidal ideations; no visual/auditory hallucinations; no delusions; no shortness of breath; mood good; no anxiety; no crying spells; no panic; no isolation; sleeping well; appetite good; energy good; no apathy; maintaining functionalityDiabetes F/UReported bypatient.Review finger sticks:fastin; did not bring log Context:seeing eye doctor regularly; checking feet regularly; taking aspirin daily; not missing doses of medications; no side effects from medications Associated Symptoms:no weight gain; no weight loss; no dizziness; no sweats; no headaches; no confusion; no increased thirst; no increased appetite; no increased urination; no blurred vision; no calluses on feet;numbness of feetNotes:has been off metformin; using Januvia 50 mg qd , and glimepiride 2 mg 2 tabs bidPt refuses to take ASA, states that people with DM do not need to take it.HyperlipidemiaReported bypatient.Type of hyperlipidemia:combined Duration:chronic Control:not at goalNotes:no longer taking pravastatin 20 mg- pt states he stopped his statin, his diabetic friend told him to stop it; Pt refuses to take it. Pt also refused to return to cardiology.Reflux/GERDRepo rted bypatient.SymptomsAsymptom atic Severity:same Duration:present 5 or more years Leonarda Patrick APN, FNP-C Attn: Accounting, [place], [address], [facility] 02/13/2019 14:26:06 9 text/html Anxiety/DepressionReported bypatient.Quality:symptoms improved;symptoms worse in the evening;symptoms worse during the day;mood worse Severity:denies suicidal ideations;unable to maintain relationships;interference with household activities;interference with sleep(some nights does not fall asleep till 6am, not wearing his cpap unless on a trip and he doesn't want to snore and bother people) Duration:frequent; symptoms lasting over 2 weeks Onset/Timing:cannot identify; still present Context:major life stressors Associated Symptoms:denies homicidal ideations; no visual/auditory hallucinations; no delusions; no shortness of breath; no apathy;high irritability;hostility;res tlessness/agitation;sleep disturbances;pessimism;tamiko pair/hopelessness;social withdrawal;decreased effectiveness/productivity ;decreased libido;paranoid, feeling persecuted here for mood swings, asked neuro regarding post stroke changes, neuro said to ask pcp has been off his medication for several months as he was refusing to take it, but family has noticed his increase in hostility and frustration as well as his overall mood swings; Leonarda Patrick APN, FNP-C Attn: Accounting, [place], [address], [facility] 04/08/2019 14:07:35 9 text/html Anxiety/DepressionReported bypatient.Quality:symptoms improved Severity:denies suicidal ideations; able to maintain relationships;interference with sleep(some nights does not fall asleep till 6am, not wearing his cpap unless on a trip and he doesn't want to snore and bother people) Context:major life stressors Associated Symptoms:denies homicidal ideations; no visual/auditory hallucinations; no delusions; no shortness of breath; mood good; no anxiety; no crying spells; no panic; no isolation; sleeping well; appetite good; energy good; no apathy; maintaining functionalityDiabetes F/UReported bypatient.Review finger sticks:fastin; did not bring log Context:seeing eye doctor regularly; checking feet regularly; taking aspirin daily; not missing doses of medications; no side effects from medications Associated Symptoms:no weight gain; no weight loss; no dizziness; no sweats; no headaches; no confusion; no increased thirst; no increased appetite; no increased urination; no blurred vision; no calluses on feet;numbness of feetNotes:has been off metformin; using Januvia 50 mg qd , and glimepiride 2 mg 2 tabs bidPt refuses to take ASA, states that people with DM do not need to take it.HyperlipidemiaReported bypatient.Type of hyperlipidemia:combined Duration:chronic Control:not at goalNotes:no longer taking pravastatin 20 mg- pt states he stopped his statin, his diabetic friend told him to stop it; Pt refuses to take it. Pt also refused to return to cardiology.Reflux/GERDRepo rted bypatient.SymptomsAsymptom atic Severity:same Duration:present 5 or more years Leonarda Patrick APN, ELECTRICIAN JOURNEYMAN WIREMAN-C Attn: Accounting,[address], [place], [address], [facility] 05/28/2019 15:09:32 9 text/html pt thinks he may have shingles on his neck and left side of chest; started not last night but the night before, not burning badly but reports it does bother him some; has not applied anything to it; Leonarda Patrick APN, ROEL-C Attn: Accounting[address] [facility], [place], [address], [facility] 06/19/2019 16:55:05
--- OUTSIDE RECORDS SUMMARY | 2024-09-30 01:06 | XMS_ITS | Clinical Summary ---
Author Organization [facility] Address [address], [place] [address] Phone Care Team Providers Care City Engineer Name Role Phone Darrion Guillen DPM Unavailable Leonarda Lundy APRN, [employer] Primary Care Provider [phone] Allergies Active Allergy Reactions Criticality Noted Date Comments Codeine Vomiting 07/12/2015 Niacin Anaphylaxis High 01/28/2013 Statins Unknown 12/05/2017 Medications glimepiride (AMARYL) 2 MG Tablet Take 2 mg by mouth. 07/06/2015 Active LORazepam (ATIVAN) 1 MG Tablet Take 1 mg by mouth once. 05/10/2015 Active levETIRAcetam (KEPPRA) 500 MG Tablet Take 500 mg by mouth once. 06/23/2015 Active levothyroxine (SYNTHROID) 112 MCG Tablet Take 125 mcg by mouth. 06/19/2015 Active venlafaxine (EFFEXOR) 75 MG Tablet Take 75 mg by mouth once. 06/07/2015 Active Aspirin 81 MG Tablet Take 81 mg by mouth daily. Active vitamin D (CHOLECALCIFEROL ) 1000 UNIT Tablet Take 1,000 Units by mouth daily. Active fish oil-omega-3 fatty acids 1000 MG Capsule Take 1,000 mg by mouth daily. Active allopurinol (ZYLOPRIM) 300 MG Tablet Take by mouth. Active fenofibrate (LOFIBRA) 54 MG Tablet 11/12/2017 Active pravastatin (PRAVACHOL) 20 MG Tablet 11/05/2017 Active JANUVIA 50 MG Tablet 11/26/2017 Active tamsulosin (FLOMAX) 0.4 MG Capsule 10/13/2017 Active Active Problems Problem Noted Date Diagnosed Date Type 2 diabetes mellitus without complication Immunizations Immunization Administration Dates Next Due Covid-19, Mrna, Lnp-s, PF, 1 00 mcg/0.5 mL Dose (Moderna) 02/16/2021,01/19/2021 Family History Medical History Relation Name Comments Cancer Brother Elevated Lipids Brother Cancer Mother Elevated Lipids Mother Relation Name Status Comments Brother Mother Social History Tobacco Use Types Packs/Day Years Used Date Smoking Tobacco: Never Smokeless Tobacco: Never Alcohol Use Standard Drinks/Week Comments Yes 0 (1 standard drink = 0.6 oz pur e alcohol) Sex and Gender Information Value Date Recorded Sex Assigned at Not on file Legal Sex Male 11:55 PM CDT Gender Identity Not on file Sexual Orientation Not on file Last Filed Vital Signs Vital Sign Reading Time Taken Comments Blood Pressure 128/80 12/05/2017 1:39 PM CDT Pulse 95 12/05/2017 1:39 PM CDT Temperature 36.6 C (97.8 F) 12/05/2017 1:39 PM CDT Respiratory Rate 18 12/05/2017 1:39 PM CDT Oxygen Saturation 97% 12/05/2017 1:39 PM CDT Inhaled Oxygen Concentration - - Weight 85.3 kg (188 lb) 12/05/2017 1:39 PM CDT Height 165.1 cm (5' 5 ) 12/05/2017 1:39 PM CDT Body Mass Index 31.28 12/05/2017 1:39 PM CDT Plan of Treatment Health Maintenance Due Date Last Done Comments Diabetes: Eye Exam 1954 Diabetes: Foot Exam 1954 Diabetes: Hemoglobin A1c 1954 Hepatitis C Virus (HCV) Screening 1954 Diabetes: Nephropathy Screening 1972 Colonoscopy 12/01/1999 Colorectal Cancer Screening 12/01/1999 Cologuard 2004 Immunochemical Fecal Occult Blood 2004 Zoster Immunization (1 of 2) 2004 PSA Discussion 2009 Pneumococcal Immunization (50+ years) (2 of 2 - PCV) 07/04/2017 07/04/2016 Influenza Immunization (#1) 04/20/202404/2019, 05/20/2018, 05/07/2017, Additional history exists SARS-COV-2 Immunization ( season) 2024 02/16/2021, 01/19/2021 Respiratory Syncytial Virus (RSV) Immunization (Adult) (1 - 1-dose 75+ series) 2029 DTaP/Tdap/Td Immunization Discontinued 07/08/2015 TdaP Immunization Completed 07/08/2015 Pneumococcal Immunization Combined Discontinued 07/04/2016 Hepatitis B Immunization Aged Out No longer eligible based on patient's age to complete this topic Meningococcal Immunization (ACWY) Aged Out No longer eligible based on patient's age to complete this topic Rotavirus Immunization Aged Out No lo nger eligible based on patient's age to complete this topic Insurance MEDICARE [facility] Care Teams City Engineer Relationship Specialty Start Date End Date Leonarda Lundy APRN, JANEL [address] [place] [id number] PCP - General Family Medicine 12/05/17 Darrion Guillen DPM Podiatry 07/12/15
--- OUTSIDE RECORDS SUMMARY | 2024-09-30 01:06 | XMS_ITS | Referral Summary ---
Author Organization [facility] Medical Office Building B Address [address] [place] [address] Care Team Providers Care Talent Acquisition Manager Name Role Phone Triston Guardado MD Primary Care Provider [phone] Allergies Active Allergy Reactions Criticality Noted Date Comments Codeine Vomiting Low 07/12/2015 Medications allopurinol (ZYLOPRIM) 300 mg tablet Take 300 mg by mouth daily. Active metFORMIN (GLUCOPHAGE) 1,000 mg tablet Take 1,000 mg by mouth 2 (two) times a day with meals. Active omega-3 fatty acids (LOVAZA) 1 gram capsule Take 1,000 mg by mouth. Active levothyroxine (SYNTHROID, LEVOTHROID) 112 mcg tablet 125 mcg. 02/08/2017 Active venlafaxine (EFFEXOR) 75 mg tablet 03/10/2017 Active cholecalciferol (cholecalcifero l) 1,000 unit Take by mouth. Active SITagliptin (JANUVIA) 25 mg tabletIndicatio ns:type 2 diabetes mellitus Take 50 mg by mouth daily. Active HYDROcodone-everett taminophen (NORCO) 5-325 mg per tabletIndicatio ns:Pain Take 1-2 tablets by mouth every 4 (four) hours as needed for pain. Do not exceed 8 tablets/day. 12 tablet 08/20/2018 Active LORazepam (ATIVAN) 0.5 mg tabletIndicatio ns:anxiety,Musc le Spasm Take 1 tablet (0.5 mg total) by mouth 3 (three) times a day as needed for anxiety. 15 tablet 08/20/2018 Active LORazepam (ATIVAN) 1 mg tablet Take 1 tablet (1 mg total) by mouth every 8 (eight) hours as needed for anxiety. 20 tablet 08/20/2018 Active glimepiride (AMARYL) 2 mg tablet 02/25/2019 Active traZODone (DESYREL) 50 mg tablet Take 1 tablet (50 mg total) by mouth nightly as needed for sleep 30 tablet 5 03/18/2019 Active levETIRAcetam (KEPPRA) 500 mg tablet Take 1 tablet (500 mg total) by mouth nightly Please give him 3 month supply. 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 (11/23/2016): Thalamic pain Adiposity 12/13/2015 Overview (11/23/2016): Obesity (BMI 30.0-34.9) Pain in extremity 02/19/2014 Overview (11/23/2016): Pain in limb Obstructive sleep apnea syndrome 07/10/2013 Overview (11/23/2016): Obstructive sleep apnea syndrome Hypersomnia 07/10/2013 Overview (11/24/2016): Hypersomnia Social History Tobacco Use Types Packs/Day Years Used Date Smoking Tobacco: Former Alcohol Use Standard Drinks/Week Comments No 0 (1 standard drink = 0.6 oz pur e alcohol) Sex and Gender Information Value Date Recorded Sex Assigned at Not on file Legal Sex Male 10:46 AM LIQUOR RECTIFIER Gender Identity Not on file Sexual Orientation Not on file Last Filed Vital Signs Vital Sign Reading Time Taken Comments Blood Pressure 130/76 03/18/2019 10:50 AM CDT Pulse 85 03/18/2019 10:50 AM CDT Temperature 37 C (98.6 F) 08/20/2018 4:39 PM LIQUOR RECTIFIER Respiratory Rate 17 08/20/2018 6:30 PM LIQUOR RECTIFIER Oxygen Saturation 95% 08/20/2018 6:30 PM LIQUOR RECTIFIER Inhaled Oxygen Concentration - - Weight 88.9 kg (196 lb) 03/18/2019 10:50 AM CDT Height 165.1 cm (5' 5 ) 03/18/2019 10:50 AM CDT Body Mass Index 32.62 03/18/2019 10:50 AM CDT Plan of Treatment Not on file Procedures Procedure Name Priority Date/Time Associated Diagnosis Comments HEPATITIS PANEL, ACUTE Add-On 08/20/2018 5:06 PM LIQUOR RECTIFIER AORTIC SONOGRAPHY Routine 06/04/2017 1:4 8 PM CDT from Last 3 Months or Most Recently Relevant to Health Maintenance Results * Hepatitis panel, acute (08/20/2018 5:06 PM LIQUOR RECTIFIER) Hep A IgM Negative Negative [facility] ([place]) Comment:Testing performed by : [facility], [address] [place] [address], [id number] Hep B core IgM Negative Negative [facility] ([place]) Comment:Testing performed by : [facility], [address] [place] [address], [id number] Hep C Ab Negative Negative [facility] ([place]) Comment:Testing performed by : [facility], [address] [place] [address], [id number] HepBsAg Negative Negative [facility] ([place]) Comment:Testing performed by : [facility], [address] [place] [address]., [id number] Blood specimen (specimen) 08/20/2018 5:06 PM LIQUOR RECTIFIER 08/21/2018 9:36 AM LIQUOR RECTIFIER Narrative [facility] ([place]) - 08/21/2018 10:25 AM LIQUOR RECTIFIER us Madhu Davis MD LAB MICROBIOLOGY - GENERAL ORDERABLES Final Result [facility]) 1 [facility] Department [place] [address] * AORTIC SONOGRAPHY (06/04/2017 1:48 PM CDT) Anatomical Region Laterality Modality N/A Ultrasound 06/04/2017 1:48 PM CDT Narrative 06/04/2017 2:11 PM CDT US Aorta Acc#: [id number] DATE OF EXAM: Jun 04 2017 US Aorta HISTORY: family hx of ischemic heart disease. COMPARISON: 07/10/2012 FINDINGS: The abdominal aorta demonstrates normal caliber with maximum anteroposterior diameter of 2.2 cm. The iliac vessels appear normal. No other findings are noted. IMPRESSION: NO EVIDENCE OF ABDOMINAL AORTIC ANEURYSM. Electronically signed by: Sathish Garcia M.D. Interpreting Physician: DR YOLIE ARRIOLA M.D. Read on: Jun 04 2017 9:11A Transcribed by: [facility] On: Jun 04 2017 9:09A Approved Electronically by: ZEINAB Johnson, DR URBANO on: Jun 04 2017 9:09A Ordering DR: LEONARDA PATRICK Attending DR: LEONARDA PATRICK Attending: LEONARDA PATRICK Requesting: LEONARDA PATRICK Requesting Attending Attending ID: [id number] Requesting ID: [id number] Report To 1 ID: [id number] Report To 1 Name: LEONARDA PATRICK Report To 1 FAX: [phone] NextGen Order #: Procedure Note Miscellaneous, Not In File - 06/04/2017 US Aorta Acc#: [id number] DATE OF EXAM: Jun 04 2017 US Aorta HISTORY: family hx of ischemic heart disease. COMPARISON: 07/10/2012 FINDINGS: The abdominal aorta demonstrates normal caliber with maximum anteroposterior diameter of 2.2 cm. The iliac vessels appear normal. No other findings are noted. IMPRESSION: NO EVIDENCE OF ABDOMINAL AORTIC ANEURYSM. Electronically signed by: Sathish Garcia M.D. Interpreting Physician: DR YOLIE ARRIOLA M.D. Read on: Jun 04 2017 9:11A Transcribed by: [facility] On: Jun 04 2017 9:09A Approved Electronically by: DR YOLIE ARRIOLA M.D. on: Jun 04 2017 9:09A Ordering DR: LEONARDA PATRICK Attending DR: LEONARDA PATRICK Attending: LEONARDA PATRICK Requesting: LEONARDA PATRICK Requesting Attending Attending ID: [id number] Requesting ID: [id number] Report To 1 ID: [id number] Report To 1 Name: LEONARDA PATRICK Report To 1 FAX: [phone] NextGen Order #: Leonarda Patrick AUDITOR [facility] PROCEDURES Final Resu lt from Last 3 Months or Most Recently Relevant to Health Maintenance Insurance MEDICARE [facility] MEDICARE [facility] [place] [address] Care Teams Talent Acquisition Manager Relationship Specialty Start Date End Date Triston Guardado MD PCP - General 03/14/21
--- OUTSIDE RECORDS SUMMARY | 2024-09-30 01:06 | XMS_ITS | Clinical Summary ---
Author Organization [facility] [employer] Address [address] [place] [address] Care Team Providers Care Faceter Name Role Phone Yanna Dozier Wayne CLINICAL DENTAL TECHNICIAN-RESEARCH STUDY ASSISTANT Primary Care Provider Source Comments [facility] [employer],non-owned Affiliates and Associated Physician Practices is amultiple site organization consisting of ambulatory clinics and hospital sitesin [place], [place], [place] and [place]. This disclosure is being madepursuant to the Care Everywhere program and may not contain all information available regarding this patient. Last updated 18.[facility] [employer] Allergies Active Allergy Reactions Criticality Noted Date Comments [place] Blue Fcf, Fd&C Blue #1 Itching Low Codeine Nausea Low 01/16/2012 Niacin Anaphylaxis High 01/28/2013 Active Problems Problem Noted Date Diagnosed Date Abdominal pain 03/28/2013 Shortness of breath 03/14/2013 Family History Medical History Relation Name Comments Cancer - Prostate Brother Relation Name Status Comments Brother Social History Tobacco Use Types Packs/Day Years [...] Mass Index 31.65 04/16/2013 11:16 AM CDT Plan of Treatment Health Maintenance Due Date Last Done Comments COLOGUARD (AGES 45-75) - COL ON CA SCREENING 1954 COLON MONITORING 1954 COLONOSCOPY - COLON CA SCREENING 1954 CT COLONOGRAPHY - COLON CA SCREENING 1954 Colorectal Cancer Screening 1954 FIT - COLON CA SCREENING 1954 FLEX SIG - COLON CA SCREENING 1954 LIPID TESTING 1954 HEPATITIS C SCREENING 11/25/1972 DTAP/TDAP/TD VACCINES (1 - Tdap) 1973 PNEUMOCOCCAL VACCINE 50+ (1 of 1 - PCV) 2004 ZOSTER VACCINE (1 of 2) 2004 AAA SCREENING 12/01/2019 COVID-19 VACCINE (1 - 2023-2 5 season) 2024 INFLUENZA VACCINE (#1) 2024 DEPRESSION SCREENING 08/20/2024 Respiratory Syncytial Virus (RSV) Vaccine Pt: or over 60 yrs (1 - 1-dose 75+ series) 2029 HEPATITIS B VACCINE Aged Out No longe r eligible based on patient's age to complete this topic HIB VACCINE Aged Out No longer eligi ble based on patient's age to complete this topic HPV VACCINE Aged Out No longer eligi ble based on patient's age to complete this topic MENINGOCOCCAL (Group B) VACCINE Aged Out No longer eligible based on patient's age to complete this topic MENINGOCOCCAL VACCINE Aged Out No hillary crystal eligible based on patient's age to complete this topic Care Teams Faceter Relationship Specialty Start Date End Date Yanna Dozier, CLINICAL DENTAL TECHNICIAN-RESEARCH STUDY ASSISTANT [address] [place] [address] PCP - General 10/08/14
--- OUTSIDE RECORDS SUMMARY | 2024-09-30 01:06 | XMS_ITS | Clinical Summary ---
Author Organization [facility] Address [address] [place] [address] Care Team Providers Care Cabinet And Trim Installer Name Role Phone Unavailable Primary Care Provider Unavailabl e Encounters Date Type Department Care Team Description 08/26/2024 External Device Data STL ABSTRACTION Provider, Abstract 07/08/2024 9:25 AM MANAGER ENGAGEMENT Ancillary Procedure [facility] [address] [place] [address] Alex Vargas MD Kidney stone from Last 3 Months Social History Tobacco Use Types Packs/Day Years Used Date Smoking Tobacco: Never Assessed Sex and Gender Information Value Date Recorded Sex Assigned at Not on file Legal Sex Male 7:14 PM MANAGER ENGAGEMENT Gender Identity Not on file Sexual Orientation Not on file Plan of Treatment Health Maintenance Due Date Last Done Comments DIABETES ANNUAL FOOT EXAM 1972 DIABETES ANNUAL RETINAL EXAM 1972 DIABETES MICROALBUMIN ANNUAL SCREEN 1972 LDL CHOLESTEROL ANNUAL 1972 DTAP/TDAP/TD VACCINES (1 - Tdap) 1973 PNEUMOCOCCAL VACCINE 65+ YEA RS (1 of 2 - PCV) 1973 COLORECTAL SCREENING 12/01/1999 Colorectal Cancer Screening 12/01/1999 FIT-DNA Q 3 years 12/01/1999 FIT/FOBT Q 1 year 12/01/1999 Flex Sig/CT Colonography Q 5 years 12/01/1999 ZOSTER VACCINE (1 of 2) 2004 DIABETES HBA1C Q 6 MONTHS 08/06/2013 02/04/2013 RSV VACCINE (60+ or ) (1 - Risk 60-74 years 1-dose series) 2014 INFLUENZA VACCINE (#1) 2024 COVID-19 Vaccine ( season) 2024, 01/19/2021 Procedures Procedure Name Priority Date/Time Associated Diagnosis Comments XR ABDOMEN 1 VW Routine 07/08/2024 9:31 AM MANAGER ENGAGEMENT Kidney stone from Last 3 Months Results * XR ABDOMEN 1 VW (07/08/2024 9:31 AM MANAGER ENGAGEMENT) Anatomical Region Laterality Modality Abdomen Computed Radiogr aphy 07/08/2024 9:31 AM MANAGER ENGAGEMENT Impressions 07/08/2024 10:04 AM MANAGER ENGAGEMENT IMPRESSION: Bilateral nephrolithiasis. Narrative 07/08/2024 10:04 AM MANAGER ENGAGEMENT EXAM: XR ABDOMEN 1 VW DATE: 07/08/2024 CLINICAL HISTORY: Nephrolithiasis TECHNIQUE: Supine AP views of the abdomen were submitted for review. Comparison was made to a prior abdominal radiograph performed January 01, 2024. FINDINGS: The bowel gas pattern is unremarkable. There is no evidence of bowel loop dilatation. There is no evidence of free air on this single supine exam. Multiple right renal calculi measuring up to 7.5 mm. A 6.5 mm calculus is again identified in the left kidney. Phleboliths are again seen in the pelvis. Mild thoracolumbar dextroscoliosis is unchanged. Multilevel degenerative changes are again seen in the visible portion of the spine. Procedure Note Do Dominguez MD - 07/08/2024 EXAM: XR ABDOMEN 1 VW DATE: 07/08/2024 CLINICAL HISTORY: Nephrolithiasis TECHNIQUE: Supine AP views of the abdomen were submitted for review. Comparison was made to a prior abdominal radiograph performed January 01, 2024. FINDINGS: The bowel gas pattern is unremarkable. There is no evidence of bowel loop dilatation. There is no evidence of free air on this single supine exam. Multiple right renal calculi measuring up to 7.5 mm. A 6.5 mm calculus is again identified in the left kidney. Phleboliths are again seen in the pelvis. Mild thoracolumbar dextroscoliosis is unchanged. Multilevel degenerative changes are again seen in the visible portion of the spine. IMPRESSION: Bilateral nephrolithiasis. Alex Vargas MD DIAGNOSTIC IMAGING ORDERABLES F inal Result from Last 3 Months Insurance MEDICARE PART A AND B GENERIC PAYOR [facility]
--- OUTSIDE RECORDS SUMMARY | 2024-09-30 01:06 | XMS_ITS | Clinical Summary ---
Author Organization [facility] Medical Office Building B Address [address] [place] [address] Care Team Providers Care Lunch Wagon Operator Name Role Phone Triston Guardado MD Primary Care Provider [phone] Allergies Active Allergy Reactions Criticality Noted Date [...] apnea syndrome Hypersomnia 07/10/2013 Overview (11/24/2016): Hypersomnia Medical History Medical History Date Comments Peptic ulcer Peptic ulcer dis ease Hx Other Medical Kidney dtones Hx Other Medical Skin Graph Hx Other Medical CVA (Stroke) Disorder of thyroid Thyroid dise ase Tension headache Headache, tensi on Hyperlipidemia Hyperlipidemia Stroke (HCC) Family History Medical History Relation Name Comments Prostate cancer Brother Cancer, pros henderson; Colon cancer Mother Cancer, colon; Migraines Mother Migraine; Relation Name Status Comments Brother Mother Social History Tobacco Use Types Packs/Day Years Used Date Smoking Tobacco: Former Alcohol Use Standard Drinks/Week Comments No 0 (1 standard drink = 0.6 oz pur e alcohol) Sex and Gender Information Value Date Recorded Sex Assigned at Not on file Legal Sex Male 10:46 AM RN CORRECTIONAL Gender Identity Not on file Sexual Orientation Not on file Obstetrics History Last Filed Vital Signs Vital Sign Reading Time Taken Comments Blood Pressure 130/76 03/18/2019 10:50 AM CDT Pulse 85 03/18/2019 10:50 AM CDT Temperature 37 C (98.6 F) 08/20/2018 4:39 PM RN CORRECTIONAL Respiratory Rate 17 08/20/2018 6:30 PM RN CORRECTIONAL Oxygen Saturation 95% 08/20/2018 6:30 PM RN CORRECTIONAL Inhaled Oxygen Concentration - - Weight 88.9 kg (196 lb) 03/18/2019 10:50 AM CDT Height 165.1 cm (5' 5 ) 03/18/2019 10:50 AM CDT Body Mass Index 32.62 03/18/2019 10:50 AM CDT Plan of Treatment Health Maintenance Due Date Last Done Comments Colon Cancer Screening-Colonoscopy 1954 Depression Screening 1954 Fall Risk Assessment 1954 Prostate Cancer Screening-PSA 1954 Hepatitis B Screening 1972 Zoster Vaccine (1 of 2) 2004 Abdominal Aortic Aneurysm (A AA) Screen 12/01/2019 06/04/2017, 03/13/2013 Pneumococcal vaccine 65+ (2 of 2 - PCV) 12/01/2019 07/04/2016 Well Visit 65+ 12/01/2019 Covid-19 Vaccine (3 - 2023-2 5 season) 2024 02/16/2021, 01/19/2021 Influenza Vaccine (#1) 2024 9, 05/20/2018, 05/07/2017, Additional history exists DTaP/Tdap/Td Vaccine (2 - Td or Tdap) 07/08/2025 07/08/2015 Hepatitis C Screening Completed 08/20/2018 Procedures Procedure Name Priority Date/Time Associated Diagnosis Comments HEPATITIS PANEL, ACUTE Add-On 08/20/2018 5:06 PM RN CORRECTIONAL AORTIC SONOGRAPHY Routine 06/04/2017 1:4 8 PM CDT from Last 3 Months or Most Recently Relevant to Health Maintenance Results * Hepatitis panel, acute (08/20/2018 5:06 PM RN CORRECTIONAL) Hep A IgM Negative Negative [facility] ([place]) Comment:Testing performed by : [facility], [address] [place] [address]., [id number] Hep B core IgM Negative Negative [facility] ([place]) Comment:Testing performed by : [facility], [address] [place] [address], [id number] Hep C Ab Negative Negative [facility] ([place]) Comment:Testing performed by : [facility], [address] [place] [address], [id number] HepBsAg Negative Negative [facility] ([place]) Comment:Testing performed by : [facility], [address] [place] [address], [id number] Blood specimen (specimen) 08/20/2018 5:06 PM RN CORRECTIONAL 08/21/2018 9:36 AM RN CORRECTIONAL Narrative [facility] ([place]) - 08/21/2018 10:25 AM RN CORRECTIONAL us Madhu Davis MD LAB MICROBIOLOGY - GENERAL ORDERABLES Final Result [facility] ([place]) 1 [facility] Department [place] [address] * AORTIC SONOGRAPHY (06/04/2017 1:48 PM CDT) Anatomical Region Laterality Modality N/A Ultrasound 06/04/2017 1:48 PM CDT Narrative 06/04/2017 2:11 PM CDT US Aorta Acc#: [id number] DATE OF EXAM: Jun 04 2017 US [...] on: Jun 04 2017 9:11A Transcribed by: [facility] On: Jun 04 2017 9:09A Approved Electronically by: ZEINAB Johnson, DR URBANO on: Jun 04 2017 9:09A Ordering DR: LEONARDA PATRICK Attending DR: LEONARDA PATRICK Attending: LEONARDA PATRICK Requesting: LEONARDA PATRICK Requesting Attending Attending ID: [id number] Requesting ID: [id number] Report To 1 ID: [id number] Report To 1 Name: LEONARDA PATRICK Report To 1 FAX: [phone] NextGen Order #: Procedure Note Miscellaneous, Not In File - 06/04/2017 US Aorta Acc#: [id number] DATE OF EXAM: Jun 04 2017 US [...] on: Jun 04 2017 9:11A Transcribed by: [facility] On: Jun 04 2017 9:09A Approved Electronically by: ZEINAB Johnson, DR URBANO on: Jun 04 2017 9:09A Ordering DR: LEONARDA PATRICK Attending DR: LEONARDA PATRICK Attending: LEONARDA PATRICK Requesting: LEONARDA PATRICK Requesting Attending Attending ID: [id number] Requesting ID: [id number] Report To 1 ID: [id number] Report To 1 Name: LEONARDA PATRICK Report To 1 FAX: [phone] NextGen Order #: Leonarda Patrick AVAYA ENGINEER IMG PROCEDURES Final Resu lt from Last 3 Months or Most Recently Relevant to Health Maintenance Insurance MEDICARE [facility] MEDICARE [facility] [place] [id number] Care Teams Lunch Wagon Operator Relationship Specialty Start Date End Date Triston Guardado MD PCP - General 03/14/21"
--- OUTSIDE RECORDS SUMMARY | 2024-09-30 01:06 | XMS_ITS | Referral Summary ---
Author Organization [facility] Address [address] [place] [address] Care Team Providers Care Local Announcer Name Role Phone Yanna Dozier Wayne MONOTYPIST-RN INTEGRATED Primary Care Provider Source Comments [facility],non-owned Affiliates and Associated Physician Practices is amultiple site organization consisting of ambulatory clinics and hospital sitesin [place], [place], [place] and [place]. This disclosure is being madepursuant to the Care Everywhere program and may not contain all information available regarding this patient. Last updated 18.[facility] [place] [place] Allergies Active Allergy Reactions Criticality Noted Date Comments [employer] Blue Fcf, Fd&C Blue #1 Itching Low [...] 04/16/2013 11:16 AM CDT Plan of Treatment Not on file Care Teams Local Announcer Relationship Specialty Start Date End Date Yanna Dozier APRN-RN INTEGRATED [address] [place] [address] PCP - General 10/08/14
[2024-09-30 08:58] VITALS: BP 135/71; PULSE 80; RESP 18; TEMP 36.1; O2SAT 96
[2024-09-30] MEDS: LACTATED RINGERS 1,000 ML 150 ML IV CONT (09:17)
[2024-09-30 09:22] LABS: Glucose Point of Care 156 mg/dl (65-105)
--- NOTE | 2024-09-30 09:34 | WPDANESEPPF ---
Anes - Initial Pre Proc Eval Procedure: Operation Date: 09/30/24 10:00 Proposed Procedures p Colonoscopy - Jules Rodriguez MD Date/Time: 09/30/24 09:34 Surgeon: Jules Rodriguez MD Pre Op Diagnosis: IBS,history of colon polyps,Family history Patient Data Age: 68 Gender: M Height: 1.65 m Weight: 77.4 kg Last Vital Signs Temp 36.1 C L 09/30/24 08:58 Pulse 80 09/30/24 08:58 Resp 18 09/30/24 08:58 BP 135/71 09/30/24 08:58 Pulse Ox 96 09/30/24 08:58 O2 Del Method Room Air 09/30/24 08:58 Allergies Allergy/AdvReac Type Severity Reaction Status Date / Time codeine Allergy Intermediate Nausea Verified 09/30/24 08:56 Home Medications ?Medication ?Instructions ?Recorded ?Confirmed ?Type aspirin 81 mg tablet,delayed 81 mg PO DAILY 08/08/19 09/30/24 History release (Adult Low Dose Aspirin) syringe with needle 3 mL 21 gauge #6 ea 10/24/19 09/18/24 Rx x 1 1/2 allopurinol 300 mg tablet 300 mg PO DAILY #90 tabs 11/24/19 09/30/24 Rx triamcinolone acetonide 0.5 % 1 applic topical BID #15 grams 12/18/22 09/30/24 Rx topical cream venlafaxine 100 mg tablet 100 mg PO BID #180 tabs 05/09/24 09/30/24 Rx atorvastatin 10 mg tablet (Lipitor) 10 mg PO DAILY #90 tabs 07/08/24 09/30/24 Rx glimepiride 4 mg tablet See Rx Instructions .Route 07/24/24 09/30/24 Rx .COMPLEX #180 tabs levothyroxine 100 mcg tablet 100 mcg PO DAILY #90 tabs 07/29/24 09/30/24 Rx levetiracetam 500 mg tablet See Rx Instructions .Route 07/30/24 09/30/24 Rx .COMPLEX #90 tabs metformin 500 mg tablet,extended See Rx Instructions .Route 08/26/24 09/30/24 Rx release 24 hr .COMPLEX #360 tabs potassium citrate 10 mEq (1,080 10 meq PO DAILY 09/15/24 09/30/24 History mg) tablet,extended release insulin glargine 100 15 unit (0.15 mL) subcut QAM #15 mL 09/17/24 09/30/24 Rx unit-lixisenatide 33 mcg/mL subcutaneous pen (Soliqua ) trazodone 150 mg tablet 150 mg PO QHS PRN insomnia #90 tabs 09/17/24 09/30/24 Rx Laboratory Tests 09/30/24 09:16 POC Capillary Glucose 156 H mg/dl (65-105) Patient hx anesthesia problems: none Family hx anesthesia problems: none Results Review: All pre-operative results and documents have been reviewed as part of the pre-operative evaluation. [facility] Past Medical History Medical History History of colon polyps Gout Encounter for long-term (current) use of other medications Hyperuricemia without signs inflammatory arthritis/tophaceous disease Anxiety Thyroid disorder Diabetes Stroke Depression Allergies Kidney stones Surgical History Surgical History H/O oral surgery H/O plastic surgery Family History Family History Mother Carcinoma of colon Father Dementia Congenital heart failure Grandparent Cancer Grandparent Diabetes mellitus Social History Social History Smoking status: Former smoker Tobacco type: cigarettes Alcohol intake: never Alcohol use details: rarely Substance use: never Substance use type: does not use Lack of Transportation: No Lack of Food: Never True Current Housing: I Have Housing Concerned About Future Housing: No Difficulty Paying Gas/Electric Bills: No Difficulty Paying for Meds: No Currently Unemployed: No Education: High School Diploma/GED Difficulty w/ Childcare or Family Care: No Living arrangements: alone Spiritual care concerns: Yes (no blood) Anes - Eval Final PreProcedure Day of Procedure 09/30/24 09:34 Patient weight: normal Heart: regular rate and rhythm Lungs: clear to auscultation Airway: Mallampati scale class II Neurological: alert and oriented Last oral intake: >/= 8 hours ASA classification: III Emergent: no Anesthetic plan: proceed Anesthesia type and monitoring: general GIVS and standard monitoring Results Review: All pre-operative results and documents have been reviewed as part of the pre-operative evaluation. Informed Consent: The patient's anesthetic plan and its attendant risks and benefits were discussed with the patient/family/POA. Questions were solicited and answers provided to the satisfaction of the patient/family/POA.
--- NOTE | 2024-09-30 10:02 | P.HP_ITS ---
H&P: HPI History of Present Illness Date/Time: 09/30/24 10:02 Chief Complaint: Family history of colorectal cancer - chronic intermittent diarrhea Narrative: This patient has family history of colorectal cancer. his mother had colorectal cancer at age 70. In addition, patient has been experiencing intermittent bouts of diarrhea for the past 2 years, sometimes associated with incontinence. Review of Systems Review of Systems: All systems reviewed & are unremarkable except as noted in HPI and below PMFSH Past Medical History Medical History History of colon polyps Gout Encounter for long-term (current) use of other medications Hyperuricemia without signs inflammatory arthritis/tophaceous disease Anxiety Thyroid disorder Diabetes Stroke Depression Allergies Kidney stones Surgical History Surgical History H/O oral surgery H/O plastic surgery Family History Family History Mother Carcinoma of colon Father Dementia Congenital heart failure Grandparent Cancer Grandparent Diabetes mellitus Social History Social History Smoking status: Former smoker Tobacco type: cigarettes Alcohol intake: never Alcohol use details: rarely Substance use: never Substance use type: does not use Lack of Transportation: No Lack of Food: Never True Current Housing: I Have Housing Concerned About Future Housing: No Difficulty Paying Gas/Electric Bills: No Difficulty Paying for Meds: No Currently Unemployed: No Education: High School Diploma/GED Difficulty w/ Childcare or Family Care: No Living arrangements: alone Spiritual care concerns: Yes (no blood) Meds Home Medications and Allergies Home Medications ?Medication ?Instructions ?Recorded ?Confirmed ?Type aspirin 81 mg tablet,delayed 81 mg PO DAILY 08/08/19 09/30/24 History release (Adult Low Dose Aspirin) syringe with needle 3 mL 21 gauge #6 ea 10/24/19 09/18/24 Rx x 1 1/2 allopurinol 300 mg tablet 300 mg PO DAILY #90 tabs 11/24/19 09/30/24 Rx triamcinolone acetonide 0.5 % 1 applic topical BID #15 grams 12/18/22 09/30/24 R x topical cream venlafaxine 100 mg tablet 100 mg PO BID #180 tabs 05/09/24 09/30/24 Rx atorvastatin 10 mg tablet (Lipitor) 10 mg PO DAILY #90 tabs 07/08/24 09/30/24 Rx glimepiride 4 mg tablet See Rx Instructions .Route 07/24/24 09/30/24 Rx .COMPLEX #180 tabs levothyroxine 100 mcg tablet 100 mcg PO DAILY #90 tabs 07/29/24 09/30/24 Rx levetiracetam 500 mg tablet See Rx Instructions .Route 07/30/24 09/30/24 Rx .COMPLEX #90 tabs metformin 500 mg tablet,extended See Rx Instructions .Route 08/26/24 09/30/24 Rx release 24 hr .COMPLEX #360 tabs potassium citrate 10 mEq (1,080 10 meq PO DAILY 09/15/24 09/30/24 History mg) tablet,extended release insulin glargine 100 15 unit (0.15 mL) subcut QAM #15 mL 09/17/24 09/30/24 Rx unit-lixisenatide 33 mcg/mL subcutaneous pen (Soliqua 100/33) trazodone 150 mg tablet 150 mg PO QHS PRN insomnia #90 tabs 09/17/24 09/30/24 Rx Allergies Allergy/AdvReac Type Severity Reaction Status Date / Time codeine Allergy Intermediate Nausea Verified 09/30/24 08:56 Vital Signs Vital Signs - 24 hr 09/30/24 08:58 Temperature 97 F L Pulse Rate 80 Respiratory Rate 18 Blood Pressure 135/71 Pulse Oximetry 96 Oxygen Delivery Room Air Exam Const: General: cooperative and healthy appearing Resp: Effort & Inspection: normal respiratory effort and able to speak in complete sentences Auscultation: clear to auscultation bilaterally Cardio: Rate: regular rate Rhythm: regular rhythm GI: Inspection: normal to inspection GI Palp: No No hepatosplenomegaly present Auscultation: normal bowel sounds Rectal Exam: deferred Skin: General skin exam: normal color Psych: Appearance: grossly normal Mental Status: mental status grossly normal Assessment and Plan Assessment and plan (1) History of colon polyps: Code(s): Z86.0100 - Personal history of colon polyps, unspecified Status: Acute Assessment and Plan: The patient is deemed a good candidate for the procedure. Consent signed. Will proceed. will also perform random colonic biopsies to rule out microscopic colitis. (2) Family history of colon cancer: Code(s): Z80.0 - Family history of malignant neoplasm of digestive organs Status: Acute
[2024-09-30] MEDS: SIMETHICONE ORAL SUSPENSION 20 MG/0.3 ML 30 ML BOTTLE 0.6 ML IRRIGATION (10:17)
[2024-09-30 10:27] VITALS: BP 105/70; PULSE 80; RESP 18; O2SAT 94
[2024-09-30 10:37] VITALS: BP 101/67; PULSE 69; RESP 19; O2SAT 93
[2024-09-30 10:47] VITALS: BP 127/72; PULSE 73; RESP 18; O2SAT 93
[2024-09-30 10:56] LABS: Glucose Point of Care 146 mg/dl (65-105)
== END 2024-09-30 11:02 | disposition home or self-care (01) ==
PROVIDERS: PCP Family Medicine; Referring Provider Nurse Practitioner Family; Visit Provider Internal Medicine Gastroenterology
PROC: 0DJD8ZZ Inspection of Lower Intestinal Tract, Via Natural or Artificial Opening Endoscopic (ICD-10-PCS; CPT 45378; principal; 2024-09-30 10:00)
DX: D12.2 Benign neoplasm of ascending colon (principal); K57.30 Diverticulosis of large intestine without perforation or abscess without bleeding; F41.9 Anxiety disorder, unspecified; E11.9 Type 2 diabetes mellitus without complications; E07.9 Disorder of thyroid, unspecified; F32.A Depression, unspecified; Z79.82 Long term (current) use of aspirin; Z79.84 Long term (current) use of oral hypoglycemic drugs; Z79.4 Long term (current) use of insulin; Z98.890 Other specified postprocedural states; Z87.891 Personal history of nicotine dependence; Z87.442 Personal history of urinary calculi; Z86.73 Personal history of transient ischemic attack (TIA), and cerebral infarction without residual deficits; Z86.0100 Personal history of colon polyps, unspecified; Z80.0 Family history of malignant neoplasm of digestive organs; Z82.49 Family history of ischemic heart disease and other diseases of the circulatory system
CPT/HCPCS: 45385; 82948; 88305; J2003; J2704; J7120

== ENCOUNTER 2024-11-27 09:30 | Outpatient (CLI) | payer MEDICARE, OTHER, SELFPAY ==
--- NOTE | ~2024-11-27 | MR_ITS ---
MRI of the brain Clinical History: Amnesia Technique: Axial and sagittal T1-weighted images were acquired. These were followed by axial T2-weigh azalea, diffusion weighted, gradient, and FLAIR images. Findings: No acute infarct, intracranial hemorrhage, or mass lesion seen. There are mild chronic vasc ular ischemic changes in the periventricular white matter bilaterally. Ventricles and subarachnoid spaces are mildly dilated. Orbits are unremarkable. Paranasal sinuses and mastoid air cells are clear. Major intracranial flow voids appear intact. Sagittal midline structures are intact. IMPRESSION: No acute infarct, intracranial hemorrhage, or mass lesion. Mild chronic microvascular ischemic change, and mild generalized atrophy. Reviewed, dictated and finalized at [facility].
== END 2024-11-27 09:31 | disposition home or self-care (01) ==
LOC: MICIMG 09:32
PROVIDERS: PCP Family Medicine; Visit Provider Family Medicine
DX: R41.3 Other amnesia (principal); R93.0 Abnormal findings on diagnostic imaging of skull and head, not elsewhere classified
CPT/HCPCS: 70551

== ENCOUNTER 2025-04-14 09:56 | Outpatient (CLI) | payer MEDICARE, OTHER, SELFPAY ==
--- OUTSIDE RECORDS SUMMARY | 2025-04-14 10:21 | XMS_ITS | Clinical Summary ---
Author Organization [facility] Address [address] [place] [address] Care Team Providers Care Boat Engine Mechanic Name Role Phone Unavailable Primary Care Provider Unavailabl e Encounters Date Type Department Care Team Description 04/07/2025 External Device Data [facility] ABSTRACTION Provider, Abstract 03/24/2025 External Device Data [facility]CTION Provider, Abstract 02/03/2025 External Device Data [facility] ABSTRACTION Provider, Abstract 01/13/2025 External Device Data [facility] Provider, Abstract from Last 3 Months Social History Tobacco Use Types Packs/Day Years Used Date Smoking Tobacco: Never Assessed Sex and Gender Information Value Date Recorded Sex Assigned at Not on file 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 Gender Identity Not on file Sexual Orientation Not on file Plan of Treatment Health Maintenance Due Date Last Done Comments DIABETES ANNUAL FOOT EXAM 1972 DIABETES ANNUAL RETINAL EXAM 1972 DIABETES MICROALBUMIN ANNUAL SCREEN 1972 LDL CHOLESTEROL ANNUAL 1972 DTAP/TDAP/TD VACCINES (1 - Tdap) 1973 PNEUMOCOCCAL VACCINE 50+ YEA RS (1 of 2 - PCV) 1973 COLORECTAL SCREENING 12/01/1999 Colorectal Cancer Screening 12/01/1999 FIT-DNA Q 3 years 12/01/1999 FIT/FOBT Q 1 year 12/01/1999 Flex Sig/CT Colonography Q 5 years 12/01/1999 ZOSTER VACCINE (1 of 2) 2004 DIABETES HBA1C Q 6 MONTHS 08/06/2013 02/04/2013 RSV VACCINE (60+ or ) (1 - Risk 60-74 years 1-dose series) 2014 COVID-19 Vaccine ( season) 2024, 01/19/2021 INFLUENZA VACCINE (#1) 2025 Insurance MEDICARE PART A AND B GENERIC PAYOR [facility]
--- OUTSIDE RECORDS SUMMARY | 2025-04-14 10:21 | XMS_ITS | Clinical Summary ---
Author Organization [facility] Address [address], [place] [address] Phone Care Team Providers Care Broadband Engineer Name Role Phone Darrion Guillen DPM Unavailable [phone] Leonarda Lundy APRN, LINE DECORATOR Primary Care Provider [phone] Allergies Active Allergy Reactions Criticality Noted Date [...] 1:39 PM CDT Height 165.1 cm (5' 5) 12/05/2017 1:39 PM CDT Body Mass Index 31.28 12/05/2017 1:39 PM CDT Plan of Treatment Health Maintenance Due Date Last Done Comments Diabetes: Eye Exam 1954 Diabetes: Foot Exam 1954 Diabetes: Hemoglobin A1c 1954 Hepatitis C Virus (HCV) Screening 1954 Diabetes: Nephropathy Screening 1972 Cologuard 12/01/1999 Colonoscopy 12/01/1999 Colorectal Cancer Screening 12/01/1999 Immunochemical Fecal Occult Blood 12/01/1999 Zoster Immunization (1 of 2) 2004 Pneumococcal Immunization (50+ years) (2 of 2 - PCV) 07/04/2017 07/04/2016 SARS-COV-2 Immunization ( season) 2024 02/16/2021, 01/19/2021 Influenza Immunization (#1) 2025 10/0 04/2019, 05/20/2018, 05/07/2017, Additional history exists Respiratory Syncytial Virus (RSV) Immunization (Adult) (1 - 1-dose 75+ series) 2029 DTaP/Tdap/Td Immunization Discontinued 07/08/2015 TdaP Immunization Completed 07/08/2015 Pneumococcal Immunization Combined Discontinued 07/04/2016 Hepatitis B Immunization Aged Out No longer eligible based on patient's age to complete this topic Human Papillomavirus (HPV) Immunization Aged Out No longer eligible based on patient's age to complete this topic Meningococcal Immunization (ACWY) Aged Out No longer eligible based on patient's age to complete this topic Rotavirus Immunization Aged Out No lo nger eligible based on patient's age to complete this topic Insurance MEDICARE [facility] Care Teams Broadband Engineer Relationship Specialty Start Date End Date Leonarda Lundy APRN, CNP [address] [place] [address] [place] [id number] PCP - General Family Medicine 12/05/17 Darrion Guillen DPM Podiatry 07/12/15
--- OUTSIDE RECORDS SUMMARY | 2025-04-14 10:21 | XMS_ITS | Clinical Summary ---
Author Organization [facility] Address [address] [place] [address] Care Team Providers Care Wave Soldering Machine Operator Name Role Phone Yanna Dozier BENZENE STILL UTILITY OPERATOR-MARINA PORTER Primary Care Provider Source Comments [facility],non-owned Affiliates and Associated Physician Practices is amultiple site organization consisting of ambulatory clinics and hospital sitesin [place], [place], [place] and [place]. This disclosure is being madepursuant to the Care Everywhere program and may not contain all information available regarding this patient. 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 Gender Identity Not on file Sexual Orientation [...] 11:16 AM CDT Height 165.1 cm (5' 5) 04/16/2013 11:16 AM CDT Body Mass Index [...] COLON CA SCREENING 1954 LIPID TESTING 1955 MEDICARE AWV 12 MONTHS 1954 HEPATITIS C SCREENING 11/25/1972 DTAP/TDAP/TD VACCINES (1 - Tdap) 1973 PNEUMOCOCCAL VACCINE 50+ (1 of 1 - PCV) 2004 ZOSTER VACCINE (1 of 2) 2004 AAA SCREENING 12/01/2019 COVID-19 VACCINE (1 - 2023-2 5 season) 2024 DEPRESSION SCREENING 08/20/2024 INFLUENZA VACCINE (#1) 2025 Respiratory Syncytial Virus (RSV) Vaccine Pt: or [...] to complete this topic MENINGOCOCCAL (Group B) VACC INE SHARED DECISION-MAKING Aged Out No longer eligibl e based on patient's age to complete this topic MENINGOCOCCAL GROUPS A/C/Y/W VACCINE Aged Out No longer eligible b ased on patient's age to complete this topic Insurance MEDICARE [facility] SELF PAY NO INSURANCE Member Subscriber Plan / Payer (Ef fective for All Dates) Name:Frederick Cheatham Member ID:Not on file Relation to Subscriber:Not on file Name:FREDERICK CHEATHAM Subscriber ID:Not on file (Home) Address: [address] [place] [id number] Payer ID:Not on file Group ID:Not on file Type:Self Pay Address: [place], [place] Care Teams Wave Soldering Machine Operator Relationship Specialty Start Date End Date Yanna Dozier APRN-JANEL [address] [place] [address] PCP - General 10/08/14
--- OUTSIDE RECORDS SUMMARY | 2025-04-14 10:21 | XMS_ITS | Clinical Summary ---
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 Gender Identity Not on file Sexual Orientation Not on file Obstetrics History Last Filed Vital Signs Vital Sign Reading Time Taken Comments Blood Pressure 130/76 03/18/2019 10:50 AM CDT Pulse 85 03/18/2019 10:50 AM CDT Temperature 37 C (98.6 F) 08/20/2018 4:39 PM MATE FISHING VESSEL Respiratory Rate 17 08/20/2018 6:30 PM MATE FISHING VESSEL Oxygen Saturation 95% 08/20/2018 6:30 PM MATE FISHING VESSEL Inhaled Oxygen Concentration - - Weight 88.9 kg (196 lb) 03/18/2019 10:50 AM CDT Height 165.1 cm (5' 5) 03/18/2019 10:50 AM CDT Body Mass Index 32.62 03/18/2019 10:50 AM CDT Plan of Treatment Health Maintenance Due Date Last Done Comments Colon Cancer Screening-Colonoscopy 1954 Depression Screening 1954 Fall Risk Assessment 1954 Prostate Cancer Screening-PSA 1954 Hepatitis B Screening 1972 Zoster Vaccine (1 of 2) 2004 Pneumococcal vaccine 65+ (2 of 2 - PCV) 07/04/2017 07/04/2016 Abdominal Aortic Aneurysm (A AA) Screen 12/01/2019 06/04/2017, 04/16/2013, 03/13/2013 Well Visit 65+ 12/01/2019 Covid-19 Vaccine (3 - 2023-2 5 season) 2024 02/16/2021, 01/19/2021 Influenza Vaccine (#1) 2025 9, 05/20/2018, 05/07/2017, Additional history exists DTaP/Tdap/Td Vaccine (2 - Td or Tdap) 07/08/2025 07/08/2015 Hepatitis C Screening Completed 08/20/2018 Procedures Procedure Name Priority Date/Time Associated Diagnosis Comments HEPATITIS PANEL, ACUTE Add-On 08/20/2018 5:06 PM MATE FISHING VESSEL AORTIC SONOGRAPHY Routine 06/04/2017 1:4 8 PM CDT from Last 3 Months or Most Recently Relevant to Health Maintenance Results * Hepatitis panel, acute (08/20/2018 5:06 PM MATE FISHING VESSEL) Hep A IgM Negative Negative [facility] ([place]) Comment:Testing performed by : , [address] [place] [address]., [id number] Hep B core IgM Negative Negative [facility] ([place]) Comment:Testing performed by : , [address] [place] [address]., [id number] Hep C Ab Negative Negative [facility] ([place]) Comment:Testing performed by : , [address] [place] [address], [id number] HepBsAg Negative Negative [facility] ([place]) Comment:Testing performed by : , [address] [place] [address], [id number] Blood specimen (specimen) 08/20/2018 5:06 PM MATE FISHING VESSEL 08/21/2018 9:36 AM MATE FISHING VESSEL Narrative [facility] ([place]) - 08/21/2018 10:25 AM MATE FISHING VESSEL us Madhu Davis MD LAB MICROBIOLOGY - GENERAL ORDERABLES Final Result Performing Organization Address City/State/[facility] Co de Phone Number [facility] ([place]) [address] Department [place] [address] * AORTIC SONOGRAPHY (06/04/2017 1:48 PM CDT) Anatomical Region Laterality Modality N/A Ultrasound 06/04/2017 1:48 PM CDT Narrative 06/04/2017 2:11 PM CDT US Aorta Acc#: [id number] DATE OF EXAM: Jun 04 2017 US [...] on: Jun 04 2017 9:11A Transcribed by: [facility] On: Jun 04 2017 9:09A Approved Electronically by: ZEINAB Johnson, DR URBANO on: Jun 04 2017 9:09A Ordering DR: LEONARDA PATRICK Attending DR: LEONARDA PATRICK Attending: LEONARDA PATRICK Requesting: LEONARDA PATRICK Requesting Attending Attending ID: [id number] Requesting ID: [id number] Report To 1 ID: [id number] Report To 1 Name: LEONARDA PATRICK Report To 1 FAX: [phone] NextGen Order #: Procedure Note Miscellaneous, Not In File - 06/04/2017 US Aorta Acc#: [id number] DATE OF EXAM: Jun 04 2017 US [...] on: Jun 04 2017 9:11A Transcribed by: [facility] On: Jun 04 2017 9:09A Approved Electronically by: ZEINAB Johnson, DR URBANO on: Jun 04 2017 9:09A Ordering DR: LEONARDA PATRICK Attending DR: LEONARDA PATRICK Attending: LEONARDA PATRICK Requesting: LEONARDA PATRICK Requesting Attending Attending ID: [id number] Requesting ID: [id number] Report To 1 ID: [id number] Report To 1 Name: LEONARDA PATRICK Report To 1 FAX: [phone] NextGen Order #: us Leonarda Patrick ICE CREAM MACHINE OPERATOR IMG US PROCEDURES Final Resu lt from Last 3 Months or Most Recently Relevant to Health Maintenance Insurance MEDICARE [facility] MEDICARE [facility] [id number] Care Teams Plunket Nurse Relationship Specialty Start Date End Date Triston Guardado MD PCP - General 03/14/21
[2025-04-14 19:02] LABS: Hematocrit 45.0 % (42.0-52.0); Hemoglobin 14.3 g/dL (14.0-18.0); Immature Granulocyte Percent A 0.4 % (0-0.5); Lymphocytes Absolute Auto 2.73 K/mm3 (0.9-3.2); Mean Corpuscular HGB Conc 31.8 g/dl (32-36); Mean Corpuscular Hemoglobin 30.9 pg (26-34); Mean Corpuscular Volume 97.2 fl (80-100); Nucleated Red Blood Cells Absolute Auto 0.000 K/mm3 (0.0-0.012); Nucleated Red Blood Cells Perc 0.0 % (0.0-0.2); Platelet Count Result 211 k/mm3 (150-375); Red Blood Count 4.63 M/mm3 (4.6-6.20); White Blood Count 9.2 K/mm3 (4.5-10.0)
[2025-04-14 19:19] LABS: Alanine Aminotransferase 80 U/L (6-50); Albumin Level 4.6 g/dL (3.5-5.1); Alkaline Phosphatase 75 U/L (38-126); Anion Gap 11 mmol/L (4-12); Aspartate Amino Transferase 87 U/L (17-59); Bilirubin,Total 0.7 mg/dL (0.2-1.3); Blood Urea Nitrogen 18 mg/dL (9-20); Calcium 10.1 mg/dL (8.4-10.2); Carbon Dioxide 27 mmol/L (22-30); Chloride 99 mmol/L (98-107); Cholesterol 208 mg/dL (0-200); Estimated Glomerular Filt Rate > 60; Glucose 188 mg/dL (65-110); HDL Direct 35 mg/dL; Potassium 5.0 mmol/L (3.4-5.0); Sodium 137 mmol/L (137-145); Total Protein 7.9 g/dL (6.3-8.2); Triglycerides 279 mg/dL (<150)
[2025-04-14 19:40] LABS: MALB Creatinine Ratio 22.6 mg/g (0-30)
[2025-04-14 19:56] LABS: Thyroid Stimulating Hormone 3.570 uIU/mL (0.465-4.680)
[2025-04-14 20:15] LABS: Vitamin B12 384.0 pg/mL (239-931)
[2025-04-14 21:21] LABS: Hemoglobin A1C 8.0 % (<5.7)
== END 2025-04-14 09:57 | disposition home or self-care (01) ==
LOC: ANHBWCAUD 09:58 → ANHBWCLAB 09:59
PROVIDERS: PCP Family Medicine; Visit Provider Family Medicine
DX: H90.3 Sensorineural hearing loss, bilateral (principal); G47.00 Insomnia, unspecified; Z79.899 Other long term (current) drug therapy; F32.9 Major depressive disorder, single episode, unspecified; F41.9 Anxiety disorder, unspecified; E78.5 Hyperlipidemia, unspecified; E11.9 Type 2 diabetes mellitus without complications; E03.9 Hypothyroidism, unspecified; I63.9 Cerebral infarction, unspecified; G47.33 Obstructive sleep apnea (adult) (pediatric); Z00.00 Encounter for general adult medical examination without abnormal findings; E79.0 Hyperuricemia without signs of inflammatory arthritis and tophaceous disease
CPT/HCPCS: 36415; 80053; 80061; 82043; 82306; 82607; 83036; 84443; 85025; 92557; 92567